=== PATIENT | male | born 1940 | race Caucasian/White ===

== ENCOUNTER 2016-03-03 04:22 | Inpatient (IN) | payer MEDICARE, OTHER ==
[~2016-03-03] VITALS: Ht 177.8 cm; Wt 71.1 kg
[~2016-03-03 04:22] MED LIST: ACID1TAB14 PO; ADV25050 INHALATION; ALBU2.5V3 NEB; ASPI-664 PO; ATOR10TA65 PO; BENA5TAB2 PO; FINA5TAB72 PO; GABA300C PO; HYDR-906 PO; IPRA12.93 INHALATION; LORA0.5T PO; MECL-77 PO; METO25TA7 PO; MULTI PO; NPH,100V SQ; PANT40TA3 PO; QUET25TA26 PO; TEMA15CA6 PO
[2016-03-03] MEDS ORDERED: METHYLPREDNISOLONE 40 MG INJ IV STA (04:43)
[2016-03-03] MEDS ORDERED: SOD CHLORIDE 0.9% 1,000 ML IV STA (04:43)
[2016-03-03] MEDS ORDERED: IPRATROPIUM (NEB) 0.5 MG/2.5 ML AMP INH STA (04:43)
[2016-03-03] MEDS ORDERED: ALBUTEROL 0.5% (NEB) 2.5 MG/0.5 ML AMP INH STA (04:43)
[2016-03-03] MEDS ORDERED: morphine 4 MG/ML VIAL IV STA (05:06)
[2016-03-03] MEDS ORDERED: ONDANSETRON 4 MG INJ IV STA (05:06)
--- NOTE | 2016-03-03 05:16 | RADRPT ---
PROCEDURE: CHEST - 1 VIEW CLINICAL INDICATION: 75-year-old male with chest/abdominal pain. TECHNIQUE: A single frontal AP view of the chest was performed portably. The images were reviewed on a PACS workstation. COMPARISON: Chest x-ray February 08, 2016; CT chest February 09, 2016. FINDINGS: There is a left-sided biventricular pacemaker. The cardiomediastinal silhouette is prominent but wi thout significant interval change. The thoracic aortic arch is mildly calcified. Chronic emphysema tous changes are again noted. There is bilateral lower lung zone linear subsegmental atelectasis. There is no evidence for focal consolidation. There is no evidence for congestive heart failure. Th ere is no evidence for pneumothorax. The osseous structures are intact. IMPRESSION: 1. Left-sided biventricular pacemaker. 2. Calcified thoracic aortic arch. 3. Chronic emphysematous changes. 4. Linear bilateral lower lung zone subsegmental atelectasis. .Tobi Story MD, Date Time Electronically viewed and signed by .Tobi Story MD, on 03/03/2016 05:16 .M/
[2016-03-03 05:55] LABS: HEMATOCRIT 35.5 % (42.0-52.0); HEMOGLOBIN 11.8 g/dl (14.0-18.0); MEAN CORPUSCULAR HEMOGLOBIN 29.7 pg (29.0-33.0); MEAN CORPUSCULAR HGB CONC 33.1 g/dl (32.0-37.0); MEAN CORPUSCULAR VOLUME 89.7 fl (82.0-101.0); MEAN PLATELET VOLUME 8.1 fl (7.4-10.4); PLATELET COUNT 625 10^3/UL (140-440); RED BLOOD COUNT 3.96 10^6/ul (4.70-6.10); RED CELL DISTRIBUTION WIDTH 17.5 % (11.5-14.5); UNCORRECTED WBC 20.4 10^3/ul (4.8-10.8); WHITE BLOOD COUNT 20.4 10^3/ul (4.8-10.8)
[2016-03-03 06:06] LABS: INR 1.06; PROTIME 13.8 Sec (12.2-14.2); PT RATIO 1.1
[2016-03-03 06:08] LABS: CHLORIDE 91 mmol/L (97-110)
[2016-03-03 06:09] LABS: ALBUMIN 3.1 g/dl (3.3-4.9); SODIUM 142 mmol/L (135-144)
[2016-03-03 06:12] LABS: ALANINE AMINOTRANSFERASE 26 IU/L (13-69); ALBUMIN/GLOBULIN RATIO 0.91; ALKALINE PHOSPHATASE 90 IU/L (42-121); ASPARTATE AMINO TRANSFERASE 23 IU/L (15-46); BILIRUBIN,INDIRECT 0.2 mg/dl (0-1.1); BILIRUBIN,TOTAL 0.2 mg/dl (0.2-1.3); BLOOD UREA NITROGEN 16 mg/dl (7-20); CALCIUM 8.6 mg/dl (8.4-10.2); CREATININE 0.49 mg/dl (0.61-1.24); GLUCOSE 161 mg/dl (70-220); TOTAL PROTEIN 6.5 g/dl (6.1-8.1)
--- NOTE | 2016-03-03 06:14 | ERA ---
ER Documentation Chief Complaint Date/Time DATE: 03/03/16 TIME: 06:02 Chief Complaint ALOC (STEPHEN MALDONADO MD) HPI 75-year-old man brought in by EMS from alf for shortness of breath and cough. He has been feeling weak today as well he denies confusion, denies chest pain, no calf or leg swelling, no headache or blurry vision. Patient denies fever although was recently admitted for pneumonia. Patient was transported here by EMS without further complication. HPI supplemented by reviewing past medical history, alf records, speaking to EMS, nursing staff. (STEPHEN MALDONADO MD) ROS All systems reviewed and are negative except as per history of present illness. (STEPHEN MALDONADO MD) Medications Home Meds Reported Medications Acetaminophen* (Acetaminophen*) 650 Mg Tablet, 650 MG PO Q4H WHILE AWAKE Y for PAIN AND OR ELEVATED TEMP, #30 TAB 03/03/16 Protein Supplement (Promod) 946 Ml Liquid, 30 ML PO TID 03/03/16 Lansoprazole* (Lansoprazole*) 30 Mg Capsule.dr, 30 MG PO DAILY, CAP 03/03/16 Prednisone* (Prednisone*) 20 Mg Tab, 40 MG PO DAILY, TAB STARTED 03-03-16 STOPED ON 03-08-16 03/03/16 Potassium Chloride* (Potassium Chloride*) 20 Meq Tablet.er, 20 MEQ PO DAILY, TAB.SA 03/03/16 Oxycodone HCl/Acetaminophen (Percocet 5-325 mg Tablet) 1 Each Tablet, 1 EACH PO Q4H WHILE AWAKE Y for MODERATE PAIN LEVEL 4-6, TAB 03/03/16 Nitroglycerin* (Nitrostat*) 0.4 Mg Tab.subl, 0.4 MG SL Q5MIN Y for CHEST PAIN, BOTTLE 03/03/16 Nifedipine* (Nifedipine ER*) 30 Mg Tablet.sa, 30 MG PO BID, TAB.SA 03/03/16 Polyethylene Glycol* (Miralax*) 17 Gm Powd.pack, 17 GM PO DAILY, #30 PACKET 03/03/16 Mag Hydrox/Al Hydrox/Simeth (Maalox Advanced Suspension) 355 Ml Oral.susp, 30 ML PO Q6 Y for DISTENSION/GAS/BLOATING 03/03/16 Metoprolol Tartrate* (Lopressor*) 25 Mg Tab, 75 MG PO BID, #180 TAB 03/03/16 Levofloxacin* (Levaquin*) 500 Mg Tablet, 500 MG PO DAILY, TAB STARTED 03/02/16 STOP 03/13/16 03/03/16 Lactulose* (Lactulose*) 20 Gm/30 Ml Solution, 20 GM PO DAILY, ML 03/03/16 Isosorbide Dinitrate* (Isosorbide Dinitrate*) 20 Mg Tablet, 20 MG PO TID, TAB 03/03/16 Insulin Glargine* (Lantus*) 100 Unit/Ml Soln, 7 UNIT SC QHS, #1 VIAL 03/03/16 Insulin Aspart* (Novolog Insulin Pen*) 100 Unit/Ml Soln, 3 UNIT SC AC MEALS, EA 03/03/16 Gabapentin* (Gabapentin*) 100 Mg Capsule, 100 MG PO TID, #90 CAP 03/03/16 Docusate Sodium* (Colace*) 100 Mg Capsule, 100 MG PO BID, #60 CAP 03/03/16 Aspirin (Low Dose Aspirin) 81 Mg Tablet.dr, 81 MG PO DAILY, #30 TAB 03/03/16 Ascorbic Acid* (Ascorbic Acid*) 500 Mg/5 Ml Syrup, 500 MG PO DAILY, #150 ML 03/03/16 Zolpidem Tartrate* (Ambien*) 5 Mg Tablet, 5 MG PO QHS Y for INSOMNIA, #30 TAB 03/03/16 Lorazepam* (Lorazepam*) 0.5 Mg Tablet, 0.5 MG PO Q6, TAB 01/25/16 Quetiapine Fumarate* (Seroquel*) 25 Mg Tablet, 25 MG PO Q8, #90 TAB 01/25/16 Benazepril Hcl* (Benazepril Hcl*) 5 Mg Tablet, 5 MG PO Q12, #60 TAB 01/25/16 Finasteride* (Proscar*) 5 Mg Tablet, 5 MG PO DAILY, TAB 01/25/16 Lactobacillus Acidoph/Bulgaricus* (Floranex*) 1 Each Tablet, 1 TAB.CHEW PO BID, TAB.CHEW 01/25/16 Ipratropium [place]* (Atrovent HFA*) 12.9 Gm Aer.w.adap, 2 PUFF INHALATION Q6, # 1 INHALER 01/25/16 Atorvastatin Calcium (Atorvastatin Calcium) 10 Mg Tablet, 10 MG PO QHS, #30 TAB 01/25/16 Salmeterol Xinaf/Fluticasone* (Advair*) 250-50 Diskus Inhaler, 1 INH INHALATION BID, #1 INHALER 01/25/16 Multivitamins* (Theragran*) 1 Tab Tab, 1 TAB PO DAILY, TAB 01/25/16 Hydrocodone/Acetaminophen ([place] 5-325 Tablet) 1 Each Tablet, 1 EACH PO Q6H Y for PRN, TAB 01/25/16 Discontinued Reported Medications Temazepam* (Restoril*) 15 Mg Capsule, 15 MG PO HS Y for INSOMNIA, CAP 01/25/16 Aspirin* (Aspirin* EC) 81 Mg Tablet.dr, 81 MG PO DAILY, TAB 01/25/16 Pantoprazole* (Protonix*) 40 Mg Tablet.dr, 40 MG PO DAILY, TAB 01/25/16 Metoprolol Succinate* (Toprol XL*) 25 Mg Tab.sr.24h, 12.5 MG PO Q12, #30 TAB 01/25/16 Meclizine Hcl* (Meclizine Hcl*) 25 Mg Tablet, 25 MG PO Q8H Y for DIZZINESS, TAB 01/25/16 Gabapentin* (Neurontin*) 300 Mg Capsule, 300 MG PO Q8, #90 CAP 01/25/16 Albuterol Sulfate* (Albuterol Sulfate* Neb) 0.083%-3 Ml Neb, 2.5 MG NEB Q6, #30 VIAL 01/25/16 Insulin NPH Human Isophane (Humulin N) 100 Unit/1 Ml Vial, SQ SLIDING SCALE, VIAL 01/25/16 Allergies Allergies: Coded Allergies: No Known Drug Allergy (Verified Allergy, Unknown, 03/03/16) PMhx/Soc Left ventricular ejection fraction of 45%, recent pneumonia treated as an inpatient with IV antibiotics, chronic obstructive pulmonary disease, sick sinus syndrome with a pacemaker, hypertension, diabetes mellitus, dementia, DNR status History of Surgery: Yes (R knee surgery 5 years ago) Anesthesia Reaction: No Hx Neurological Disorder: No Hx Respiratory Disorders: Yes (copd) Hx Cardiac Disorders: Yes (PM) Hx Psychiatric Problems: No Hx Miscellaneous Medical Probl: Yes Hx Alcohol Use: No Hx Substance Use: No Hx Tobacco Use: No Smoking Status: Former smoker (STEPHEN MALDONADO MD) FmHx Family History: No diabetes (STEPHEN MALDONADO MD) Physical Exam Vitals Vital Signs Date Time Temp Pulse Resp B/P Pulse Ox O2 Delivery O2 Flow Rate FiO2 03/03/16 11:50 92 21 117/65 93 8.0 03/03/16 09:26 93 20 100/68 95 8.0 03/03/16 08:08 98.2 93 20 103/55 80 Nasal Cannula 3.0 03/03/16 06:13 98 20 91 4.0 03/03/16 05:30 96 22 119/64 90 Nasal Cannula 4.0 03/03/16 05:05 98.6 93 24 131/89 92 03/03/16 05:00 Nasal Cannula 4.0 03/03/16 05:00 4 (WILLIAMS MARTELL) Physical Exam GENERAL: Elderly, dehydrated man, dyspneic HEENT: Dry mucous membranes, pink conjunctiva, no cervical spine tenderness or step-off deformities, no goiter, no jaundice or icterus, extraocular movements intact without pain. No submandibular induration, and no pharyngeal erythema NEURO: Alert and oriented 2, cranial nerves II through XII intact bilaterally, pupils equal round reactive to light, no focal deficits or facial asymmetry, sensation intact distally Strength 5/5 in upper and lower extremities bilaterally CARDIAC: Tachycardic and regular, no murmurs rubs or gallops LUNGS: Dense wheezes bilaterally, no crackles or stridor ABDOMEN: Soft nontender, no guarding, no rigidity, no rebound, no psoas sign no obturator sign. Normoactive bowel sounds SKIN: Warm and dry to touch, no abrasions, contusions, or hematomas, no lacerations, no ecchymosis, no target lesions, and without ulcers EXTREMITIES: No clubbing cyanosis or edema, calves are bilaterally symmetrical, no Homans sign, no popliteal cord sign. Distal pulses equal and bilateral PSYCH: Normal affect without agitation or irritability (STEPHEN MALDONADO MD) Result Diagram: 03/03/16 0500 03/03/16 0500 Results 24 hrs Laboratory Tests Test 03/03/16 05:00 03/03/16 07:35 03/03/16 11:40 Alanine Aminotransferase (ALT/SGPT) 26IU/L Albumin 3.1g/dl Albumin/Globulin Ratio 0.91 Alkaline Phosphatase 90IU/L Anion Gap 14 Aspartate Amino Transf (AST/SGOT) 23IU/L Band Neutrophils % 7.0% Basophils # 10^3/ul Basophils % % Blood Morphology Comment Blood Urea Nitrogen 16mg/dl Calcium Level 8.6mg/dl Carbon Dioxide Level 40mmol/L Chloride Level 91mmol/L Creatinine 0.49mg/dl Differential Comment MANUAL DIFF Direct Bilirubin 0.00mg/dl Eosinophils # 10^3/ul Eosinophils % % Globulin 3.40g/dl Glucose Level 161mg/dl Hematocrit 35.5% Hemoglobin 11.8g/dl INR International Normalized Ratio 1.06 Indirect Bilirubin 0.2mg/dl Lactic Acid Level 1.6mmol/L Lipase < 10U/L Lymphocytes # 0.810^3/ul Lymphocytes % 4.0% Mean Corpuscular Hemoglobin 29.7pg Mean Corpuscular Hemoglobin Concent 33.1g/dl Mean Corpuscular Volume 89.7fl Mean Platelet Volume 8.1fl Monocytes # 0.810^3/ul Monocytes % 4.0% Neutrophils # 17.310^3/ul Neutrophils % 85.0% Nucleated Red Blood Cells # 10^3/ul Nucleated Red Blood Cells % /100WBC Platelet Count 86570^3/UL Platelet Estimate PLT APPEAR INCREASED Potassium Level 2.9mmol/L Prothrombin Time 13.8Sec Prothrombin Time Ratio 1.1 Red Blood Count 3.9610^6/ul Red Cell Distribution Width 17.5% Sodium Level 142mmol/L Total Bilirubin 0.2mg/dl Total Protein 6.5g/dl Troponin I 0.086ng/ml White Blood Count 20.410^3/ul Urine Bacteria OCCASIONAL Urine Bilirubin NEGATIVE Urine Clarity CLEAR Urine Coarse Granular Casts RARE Urine Color YELLOW Urine Glucose NEGATIVE% Urine Hemoglobin NEGATIVE Urine Hyaline Casts OCCASIONAL Urine Ketones NEGATIVE Urine Leukocyte Esterase NEGATIVE Urine Microscopic RBC NONE SEEN/HPF Urine Microscopic WBC 2-5/HPF Urine Nitrite NEGATIVE Urine Specific Temple >=1.030 Urine Total Protein 1+ Urine Urobilinogen 0.2 E.U./dL Urine pH 6.0 Arterial Blood HCO3 39.2mmol/L Arterial Blood Base Excess 11.4mmol/L Arterial Blood Oxygen Saturation 93.0mmHG Pako Test ACCEPTAB Arterial Blood Gas Puncture Site Right Radial Arterial Blood Carboxyhemoglobin 0.2% Arterial Blood Date Drawn 03/03/2016 11:55:18 AM Arterial Blood Methemoglobin 0.3% Arterial Blood pCO2 (Temp correct) 70.6mmhg Arterial Blood pH (Temp corrected) 7.362 Arterial Blood pO2 (Temp corrected) 71.2mmHG Blood Gas A-a O2 Differential 169.3mmHg Blood Gas Modality NASAL CANNULA Blood Gas Notified Time 03/03/2016 12:03:31 PM Blood Gas Notified Whom [facility] [employer] Blood Gas Specimen Source Blood arterial Blood Gas Temperature 37.0C FiO2 45.0% Oxyhemoglobin Percent 92.5% Total Hemoglobin 11.2g/dl Current Medications Medications (Trade) Dose Ordered Sig/Richard Route PRN Reason Start Time Stop Time Status Last Admin Dose Admin Albuterol (Proventil 0.5% (Neb)) 10 mg ONCE STAT INH 03/03/16 04:43 03/03/16 04:46 DC 03/03/16 06:13 Ipratropium [place] (Atrovent 0.02% (Neb)) 1 mg ONCE STAT INH 03/03/16 04:43 03/03/16 04:46 DC 03/03/16 06:13 Methylprednisolone Sodium Succinate 40 mg 40 mg ONCE STAT IV 03/03/16 04:43 03/03/16 04:46 DC 03/03/16 05:20 Sodium Chloride (NS) 1,000 ml @ 1,000 mls/hr Q1H STAT IV 03/03/16 04:43 03/03/16 05:42 DC 03/03/16 05:20 Morphine Sulfate (morphine) 4 mg ONCE STAT IV 03/03/16 05:06 03/03/16 05:07 DC 03/03/16 05:20 Ondansetron HCl 4 mg 4 mg ONCE STAT IV 03/03/16 05:06 03/03/16 05:07 DC 03/03/16 05:20 Levofloxacin/ Dextrose 150 ml @ 100 mls/hr ONCE ONCE IVPB 03/03/16 07:00 03/03/16 08:29 DC 03/03/16 08:04 Potassium Chloride (KCl 20 MEQ/50 ML SW) 50 ml @ 25 mls/hr ONCE ONCE IVPB 03/03/16 07:00 03/03/16 08:59 DC 03/03/16 07:39 Lorazepam (Ativan) 1 mg ONCE ONCE PO 03/03/16 11:30 03/03/16 11:31 DC 03/03/16 11:54 Morphine Sulfate (morphine) 2 mg ONCE ONCE IV 03/03/16 11:30 03/03/16 11:31 DC 03/03/16 11:54 Lorazepam (Ativan) 0.5 mg Q6 PRN IV AGITATION/ANXIETY 03/03/16 12:00 Hydromorphone HCl (Dilaudid) 0.5 mg Q4 PRN IV PAIN LEVEL 8-10 03/03/16 12:00 (WILLIAMS MARTELL) Procedures/MDM IV line was established patient was placed on child monitor rhythm strip revealed a wide-complex paced rhythm at about 100 bpm. Patient was afebrile. I administered 1 L normal saline intravenously, morphine 4 mg IV, Zofran 4 mg IV , albuterol 10 mg via nebulizer, ipratropium 1 mg via nebulizer, and ethyl prednisolone 40 mg IV with good response. One view chest x-ray performed, read by me there is a pacemaker in place and atelectatic changes bilaterally, no acute infiltrates, no pneumothorax. EKG performed, read by me revealed a paced wide complex rhythm at 94 bpm, left axis deviation, no concerning ST elevations or depressions noted. I spoke to Dr. Barroso regarding the patient's presentation and symptomatology and he agreed with the plan, we will admit the patient to telemetry setting for continued medical management and bronchodilator therapy (STEPHEN MALDONADO MD) I assumed care at 6 AM. Review of patient's labs demonstrated a leukocytosis. Given this ill gentleman with respiratory complaints and underlying disease, I initiated antibiotics after ordering blood cultures. Patient's lactate was reviewed and he did not appear to be severely septic. Patient's potassium was also reported as being low and this was replaced via IV replacement. Patient otherwise remained comfortable and stable pending bed placement. Patient is continued to be under my observation and care. At 1140 I was made aware of the patient's CO2 being over 40. I ordered a blood gas which is pending at this time. Blood gas was reviewed at approximately noon. It demonstrated a hypercarbia with a balanced pH indicating compensated hypercarbic respiratory failure. Clinically, patient was not encephalopathic and was breathing normally. His saturations remained adequate. Continue to work with respiratory therapy to titrate nasal cannula oxygen to appropriate saturations. He did not seem to require BiPAP or intubation at this time. (WILLIAMS MARTELL) Departure Diagnosis: Primary Impression: COPD (chronic obstructive pulmonary disease) Qualified Code: J44.1 - Chronic obstructive pulmonary disease with acute exacerbation Additional Impressions: Dehydration Hypokalemia Condition: Fair STEPHEN MALDONADO MD Mar 03, 2016 06:13 WILLIAMS MARTELL Mar 03, 2016 06:53
[2016-03-03 06:23] LABS: CONDITION 1; LH ANALYZER COMMENTS 1; SUSPECT 1
[2016-03-03 06:24] LABS: TROPONIN-I 0.086 ng/ml (0.00-0.12)
[2016-03-03 06:38] LABS: ANION GAP 14 (8-16)
[2016-03-03] MEDS ORDERED: LEVOFLOXACIN 750MG/D5W (PMX) 150 ML IVPB ONE (07:00)
[2016-03-03] MEDS ORDERED: POTASSIUM CHLORIDE 50 ML IVPB ONE (07:00)
[2016-03-03] MEDS ORDERED: ZOLP5TAB PO (07:13)
[2016-03-03] MEDS ORDERED: ASCO500S2 PO (07:14)
[2016-03-03] MEDS ORDERED: ASPI-664 PO (07:15)
[2016-03-03] MEDS ORDERED: DOCU-144 PO (07:16)
[2016-03-03] MEDS ORDERED: GABA100C14 PO (07:17)
[2016-03-03] MEDS ORDERED: NOVO3I SC (07:18)
[2016-03-03] MEDS ORDERED: ISOS20TA19 PO (07:19)
[2016-03-03] MEDS ORDERED: LANT3I SC (07:19)
[2016-03-03] MEDS ORDERED: LACT20SO2 PO (07:20)
[2016-03-03] MEDS ORDERED: LEVO500T72 PO (07:21)
[2016-03-03] MEDS ORDERED: METO-448 PO (07:23)
[2016-03-03] MEDS ORDERED: POLY17PO6 PO (07:25)
[2016-03-03] MEDS ORDERED: MAG355OR14 PO (07:25)
[2016-03-03] MEDS ORDERED: NIFE30TA60 PO (07:26)
[2016-03-03] MEDS ORDERED: NIT4 SL (07:26)
[2016-03-03] MEDS ORDERED: OXYC-279 PO (07:27)
[2016-03-03] MEDS ORDERED: POTA20TA96 PO (07:28)
[2016-03-03] MEDS ORDERED: LANS30CA PO (07:30)
[2016-03-03] MEDS ORDERED: PRED20TA PO (07:30)
[2016-03-03] MEDS ORDERED: PROT946L PO (07:31)
[2016-03-03] MEDS ORDERED: ACET-2047 PO (07:32)
[2016-03-03 08:08] VITALS: TEMP 98.2
[2016-03-03 08:36] LABS: ADD UMIC YES; URINE BILIRUBIN (Dip) NEGATIVE (NEGATIVE); URINE BLOOD (Dip) NEGATIVE (NEGATIVE); URINE COLOR YELLOW (YELLOW); URINE GLUCOSE (Dip) NEGATIVE (NEGATIVE); URINE KETONES (Dip) NEGATIVE (NEGATIVE); URINE LEUKOCYTE ESTERASE (Dip) NEGATIVE (NEGATIVE); URINE NITRITE (Dip) NEGATIVE (NEGATIVE); URINE TOTAL PROTEIN (Dip) 1+ (NEGATIVE); URINE UROBILINOGEN (Dip) 0.2 E.U./dL (0.1-1.0)
[2016-03-03 09:03] LABS: URINE RBCS NONE SEEN /HPF (0)
[2016-03-03 09:04] LABS: BACTERIA,URINE OCCASIONAL
[2016-03-03 09:23] LABS: LYMPHOCYTES # 0.8 10^3/ul (0.8-2.9); MONOCYTE # 0.8 10^3/ul (0.3-0.9); NEUTROPHIL # 17.3 10^3/ul (1.6-7.5); PLATELET ESTIMATE PLT APPEAR INCREASED
[2016-03-03] MEDS ORDERED: morphine 2 MG INJ IV ONE (11:30)
[2016-03-03] MEDS ORDERED: LORAZEPAM 1 MG TAB PO ONE (11:30)
[2016-03-03 11:40] LABS: CARBON DIOXIDE 40 mmol/L (21-31); POTASSIUM 2.9 mmol/L (3.5-5.1)
[2016-03-03] MEDS ORDERED: LORAZEPAM 2 MG INJ IV PRN (12:00)
[2016-03-03] MEDS ORDERED: HYDROmorphONE 1 MG/ML SYG IV PRN (12:00)
[2016-03-03 12:03] LABS: AADO2 Arterial 169.3 mmHg (7.0-24.0); Allen Test ACCEPTAB; Arterial Base Excess 11.4 mmol/L (-3.0-3); Arterial COHb 0.2 % (0.0-3.0); Arterial Fraction of Oxyhgb 92.5 % (93.0-99.0); Arterial HCO3 39.2 mmol/L (22.0-26.0); Arterial MetHb 0.3 % (0.0-1.5); Arterial Total Hemglobin 11.2 g/dl (12.0-18.0); MODE NASAL CANNULA
[2016-03-03] MEDS ORDERED: GABAPENTIN 100 MG CAP PO ONE (14:00)
[2016-03-03] MEDS ORDERED: NITROGLYCERIN (SL) 0.4 MG TAB SL PRN (20:00)
[2016-03-03] MEDS ORDERED: AL HYDROX/MG HYDROX/SIMETH 30 ML CUP PO PRN (20:00)
[2016-03-03] MEDS ORDERED: ONDANSETRON 4 MG INJ IV PRN (20:00)
--- NOTE | 2016-03-03 20:01 | HP ---
Date/Time of Note Date/Time of Note DATE: 03/03/16 TIME: 19:56 Assessment/Plan VTE Prophylaxis VTE Prophylaxis Intervention: other Assessment/Plan Assessment/Plan 1. Acute hypercapnic respiratory failure - pulmonary consult- Dr Drew - breathing treatment - on o2 by NC 2. Chronic obstructive pulmonary disease with acute exacerbation - Continue bronchodilators. 3. Dehydration 4. Hypertension. - Continue patient on Benazepril and metoprolol. 5. Diabetes mellitus type 2. - Continue on NovoLog and Lantus. 6. Sick sinus syndrome status post pacemaker - per cardiology 7. Dementia/encephalopathy PLAN: Admit to Tele See admission orders DVT prophylaxis dw dr Chen/staff HPI/ROS Admit Date/Time Admit Date/Time Mar 03, 2016 at 17:24 Hx of Present Illness ALOC (STEPHEN MALDONADO MD) HPI 75-year-old man brought in by EMS from snf for shortness of breath and cough. He has been feeling weak today as well he denies confusion, denies chest pain, no calf or leg swelling, no headache or blurry vision. Patient denies fever although was recently admitted for pneumonia. Patient was transported here by EMS without further complication. HPI supplemented by reviewing past medical history, snf records, speaking to EMS, nursing staff. (STEPHEN MALDONADO MD) ROS All systems reviewed and are negative except as per history of present illness. (STEPHEN MALDONADO MD) Medications Home Meds Reported Medications Acetaminophen* (Acetaminophen*) 650 Mg Tablet, 650 MG PO Q4H WHILE AWAKE Y for PAIN AND OR ELEVATED TEMP, #30 TAB 03/03/16 Protein Supplement (Promod) 946 Ml Liquid, 30 ML PO TID 03/03/16 Lansoprazole* (Lansoprazole*) 30 Mg Capsule.dr, 30 MG PO DAILY, CAP 03/03/16 Prednisone* (Prednisone*) 20 Mg Tab, 40 MG PO DAILY, TAB STARTED 03-03-16 STOPED ON 03-08-16 03/03/16 Potassium Chloride* (Potassium Chloride*) 20 Meq Tablet.er, 20 MEQ PO DAILY, TAB.SA 03/03/16 Oxycodone HCl/Acetaminophen (Percocet 5-325 mg Tablet) 1 Each Tablet, 1 EACH PO Q4H WHILE AWAKE Y for MODERATE PAIN LEVEL 4-6, TAB 03/03/16 Nitroglycerin* (Nitrostat*) 0.4 Mg Tab.subl, 0.4 MG SL Q5MIN Y for CHEST PAIN, BOTTLE 03/03/16 Nifedipine* (Nifedipine ER*) 30 Mg Tablet.sa, 30 MG PO BID, TAB.SA 03/03/16 Polyethylene Glycol* (Miralax*) 17 Gm Powd.pack, 17 GM PO DAILY, #30 PACKET 03/03/16 Mag Hydrox/Al Hydrox/Simeth (Maalox Advanced Suspension) 355 Ml Oral.susp, 30 ML PO Q6 Y for DISTENSION/GAS/BLOATING 03/03/16 Metoprolol Tartrate* (Lopressor*) 25 Mg Tab, 75 MG PO BID, #180 TAB 03/03/16 Levofloxacin* (Levaquin*) 500 Mg Tablet, 500 MG PO DAILY, TAB STARTED 03/02/16 STOP 03/13/16 03/03/16 Lactulose* (Lactulose*) 20 Gm/30 Ml Solution, 20 GM PO DAILY, ML 03/03/16 Isosorbide Dinitrate* (Isosorbide Dinitrate*) 20 Mg Tablet, 20 MG PO TID, TAB 03/03/16 Insulin Glargine* (Lantus*) 100 Unit/Ml Soln, 7 UNIT SC QHS, #1 VIAL 03/03/16 Insulin Aspart* (Novolog Insulin Pen*) 100 Unit/Ml Soln, 3 UNIT SC AC MEALS, EA 03/03/16 Gabapentin* (Gabapentin*) 100 Mg Capsule, 100 MG PO TID, #90 CAP 03/03/16 Docusate Sodium* (Colace*) 100 Mg Capsule, 100 MG PO BID, #60 CAP 03/03/16 Aspirin (Low Dose Aspirin) 81 Mg Tablet.dr, 81 MG PO DAILY, #30 TAB 03/03/16 Ascorbic Acid* (Ascorbic Acid*) 500 Mg/5 Ml Syrup, 500 MG PO DAILY, #150 ML 03/03/16 Zolpidem Tartrate* (Ambien*) 5 Mg Tablet, 5 MG PO QHS Y for INSOMNIA, #30 TAB 03/03/16 Lorazepam* (Lorazepam*) 0.5 Mg Tablet, 0.5 MG PO Q6, TAB 01/25/16 Quetiapine Fumarate* (Seroquel*) 25 Mg Tablet, 25 MG PO Q8, #90 TAB 01/25/16 Benazepril Hcl* (Benazepril Hcl*) 5 Mg Tablet, 5 MG PO Q12, #60 TAB 01/25/16 Finasteride* (Proscar*) 5 Mg Tablet, 5 MG PO DAILY, TAB 01/25/16 Lactobacillus Acidoph/Bulgaricus* (Floranex*) 1 Each Tablet, 1 TAB.CHEW PO BID, TAB.CHEW 01/25/16 Ipratropium [place]* (Atrovent HFA*) 12.9 Gm Aer.w.adap, 2 PUFF INHALATION Q6, # 1 INHALER 01/25/16 Atorvastatin Calcium (Atorvastatin Calcium) 10 Mg Tablet, 10 MG PO QHS, #30 TAB 01/25/16 Salmeterol Xinaf/Fluticasone* (Advair*) 250-50 Diskus Inhaler, 1 INH INHALATION BID, #1 INHALER 01/25/16 Multivitamins* (Theragran*) 1 Tab Tab, 1 TAB PO DAILY, TAB 01/25/16 Hydrocodone/Acetaminophen ([place] 5-325 Tablet) 1 Each Tablet, 1 EACH PO Q6H Y for PRN, TAB 01/25/16 Discontinued Reported Medications Temazepam* (Restoril*) 15 Mg Capsule, 15 MG PO HS Y for INSOMNIA, CAP 01/25/16 Aspirin* (Aspirin* EC) 81 Mg Tablet.dr, 81 MG PO DAILY, TAB 01/25/16 Pantoprazole* (Protonix*) 40 Mg Tablet.dr, 40 MG PO DAILY, TAB 01/25/16 Metoprolol Succinate* (Toprol XL*) 25 Mg Tab.sr.24h, 12.5 MG PO Q12, #30 TAB 01/25/16 Meclizine Hcl* (Meclizine Hcl*) 25 Mg Tablet, 25 MG PO Q8H Y for DIZZINESS, TAB 01/25/16 Gabapentin* (Neurontin*) 300 Mg Capsule, 300 MG PO Q8, #90 CAP 01/25/16 Albuterol Sulfate* (Albuterol Sulfate* Neb) 0.083%-3 Ml Neb, 2.5 MG NEB Q6, #30 VIAL 01/25/16 Insulin NPH Human Isophane (Humulin N) 100 Unit/1 Ml Vial, SQ SLIDING SCALE, VIAL 01/25/16 Allergies Allergies: Coded Allergies: No Known Drug Allergy (Verified Allergy, Unknown, 03/03/16) ROS Eyes: no complaints ENT: no complaints Respiratory: shortness of breath Cardiovascular: no complaints Gastrointestinal: no complaints Genitourinary: no complaints Musculoskeletal: no complaints Skin: no complaints PMH/Family/Social Past Medical History PMhx/Soc Left ventricular ejection fraction of 45%, recent pneumonia treated as an inpatient with IV antibiotics, chronic obstructive pulmonary disease, sick sinus syndrome with a pacemaker, hypertension, diabetes mellitus, dementia, DNR status History of Surgery: Yes (R knee surgery 5 years ago) Anesthesia Reaction: No Hx Neurological Disorder: No Hx Respiratory Disorders: Yes (copd) Hx Cardiac Disorders: Yes (PM) Hx Psychiatric Problems: No Hx Miscellaneous Medical Probl: Yes Hx Alcohol Use: No Hx Substance Use: No Hx Tobacco Use: No Smoking Status: Former smoker FmHx Family History: No diabetes Social History Smoking Status: Former smoker Exam/Review of Systems Vital Signs Vitals Vital Signs Date Time Temp Pulse Resp B/P Pulse Ox O2 Delivery O2 Flow Rate FiO2 03/03/16 17:16 96 22 132/79 94 Nasal Cannula 6.0 03/03/16 08:08 98.2 Exam Constitutional: alert Psych: nl mood/affect Eyes: EOMI, nl sclera ENMT: nl external ears & nose Neck: non-tender Respiratory: diminished breath sounds Cardiovascular: nl pulses Gastrointestinal: non-tender, soft Musculoskeletal: nl extremities to inspection Neurological: confused, nl speech Labs Result Diagram: 03/03/16 0500 03/03/16 0500 Medications Medications Current Medications Lorazepam (Ativan) 0.5 mg Q6 PRN IV AGITATION/ANXIETY; Start 03/03/16 at 12:00 Hydromorphone HCl (Dilaudid) 0.5 mg Q4 PRN IV PAIN LEVEL 8-10 Last administered on 03/03/16at 15:53; Admin Dose 0.5 MG; Start 03/03/16 at 12:00 SOCO SIMS Mar 03, 2016 20:01
[2016-03-03 20:09] VITALS: BP 130/58; RESP 20
[2016-03-03 20:25] VITALS: PULSE 88
[2016-03-03] MEDS ORDERED: GLUCAGON 1 MG INJ IM PRN (21:00)
[2016-03-03] MEDS ORDERED: GLUCOSE GEL 15 GRAM TUBE PO PRN ×2 (21:00)
[2016-03-03] MEDS ORDERED: DEXTROSE 50% 50 ML SYRINGE IV PRN ×2 (21:00)
[2016-03-03] MEDS ORDERED: GLUCOSE GEL 15 GRAM TUBE BUCCAL PRN (21:00)
[2016-03-03 21:33] LABS: POTASSIUM 4.1 mmol/L (3.5-5.1)
[2016-03-03 21:35] LABS: CREATININE 0.7 mg/dl (0.61-1.24)
[2016-03-03 21:36] LABS: CALCIUM 8.4 mg/dl (8.4-10.2)
[2016-03-03 22:00] VITALS: Ht 177.8 cm; Wt 71.1 kg
[2016-03-03] MEDS: INSULIN ASPART [NOVOLOG] 3 ML PEN SC SCH (22:00)
[2016-03-03] MEDS: METHYLPREDNISOLONE 40 MG INJ IV SCH (22:04)
[2016-03-03] MEDS: GABAPENTIN 100 MG CAP PO SCH (22:05)
[2016-03-03] MEDS: QUETIAPINE 25 MG TAB PO SCH (22:05)
[2016-03-03] MEDS: DOCUSATE SODIUM 100 MG CAP PO SCH (22:05)
[2016-03-03] MEDS: ISOSORBIDE DINITRATE 20 MG TAB PO SCH (22:05)
[2016-03-03] MEDS: ATORVASTATIN 10 MG TAB PO SCH (22:05)
[2016-03-03] MEDS: LACTOBACILLUS CHEW TAB PO SCH (22:05)
[2016-03-03] MEDS: NIFEdipine (XL) 30 MG TAB PO SCH (22:05)
[2016-03-03] MEDS: METOPROLOL 25 MG TAB PO SCH (22:06)
[2016-03-03] MEDS: BENAZEPRIL 5 MG TAB PO SCH (22:06)
[2016-03-03] MEDS: SALMETEROL/FLUTICASONE 250/50 INHA INH SCH (22:07)
[2016-03-03] MEDS: INSULIN GLARGINE [LANtus] 3 ML PEN SC SCH (22:09)
--- NOTE | 2016-03-03 23:13 | CONS ---
DATE OF ADMISSION: 03/03/2016 DATE OF CONSULTATION: 03/03/2016 TYPE OF CONSULTATION: Cardiology REASON FOR CONSULTATION: Shortness of breath, assess for congestive heart failure as well as permanent pacemaker, assess function. REQUESTING PHYSICIAN: Harsh Griffith MD HISTORY OF PRESENT ILLNESS: Mr. Márquez is a 75-year-old male with history of chronic obstructive pulmonary disease, hypertension, diabetes mellitus, sick sinus syndrome, status permanent pacemaker implant, dementia, and encephalopathy who had recently been admitted to [facility] and discharged to outpatient followup after being treated for chronic obstructive pulmonary disease exacerbation complicated by epistaxis and elevated troponin and found to have cardiomyopathy with mildly decreased left ventricular ejection fraction. He now re-presents with complaints of shortness of breath and hypercapnic respiratory failure with an ABG revealing a pH of 7.362, a pCO2 of 70, and a pO2 of 71. Upon arrival, blood pressure of 131/89, pulse 93, respiratory rate 24, saturating 93%, temperature 98.6. The patient's labs revealed an ABG as above. Sodium 142, potassium 2.9, creatinine 0.49, BUN 16, glucose of 161. INR of 1.06. UA negative. The patient underwent a chest x -ray revealing left-sided biventricular pacemaker, chronic emphysematous changes , linear bilateral lower lung zone subsegmental atelectasis, calcified thoracic aortic arch, no evidence of focal consolidation. Patient's electrocardiogram is ventricularly paced and a rate of 94. The patient at this time denies ongoing chest pain. PAST MEDICAL HISTORY: As above in HPI. MEDICATIONS CURRENTLY IN HOSPITAL: 1. Vitamin C. 2. Aspirin 81 mg daily. 3. Proscar 5 mg daily. 4. Lactulose 20 grams daily. 5. Multivitamin. 6. MiraLax. 7. Potassium chloride 10 mEq daily. 9. Protonix 40 mg daily. 10. Atrovent 2 puffs q.6h. 11. Ativan 0.5 q.6h. 12. Seroquel 25 mg p.o. q.8h. 13. Insulin sliding scale. 14. Lipitor 10 mg at bedtime. 15. Benazepril 5 mg q.12h. 16. Colace 100 mg b.i.d. 17. Gabapentin 100 mg t.i.d. 18. Isordil 20 mg t.i.d. 19. Floranex. 20. Metoprolol 75 mg p.o. b.i.d. 21. Procardia 30 mg b.i.d. 22. Advair Diskus. 23. Solu-Medrol 40 mg IV q.12h. 24. Lantus 8 units subcutaneous at bedtime p.r.n. 25. [place] p.r.n. 26. Nitroglycerin p.r.n. 27. Ambien p.r.n. 28. Zofran p.r.n. 29. Ativan p.r.n. 30. Dilaudid p.r.n. ALLERGIES: NO KNOWN DRUG ALLERGIES. SOCIAL HISTORY: No current tobacco, ETOH, or illicit drug use. FAMILY HISTORY: No history of sudden cardiac or early CAD. REVIEW OF SYSTEMS: As above in HPI. CONSTITUTIONAL: No fevers, chills. PULMONARY: Shortness of breath. CARDIOVASCULAR: No current chest pain; positive shortness of breath. GASTROINTESTINAL: No vomiting. GENITOURINARY: No hematuria. MUSCULOSKELETAL: Degenerative joint disease. PSYCHIATRIC: No documented psychiatric history. NEUROLOGIC: No documented history of CVA. ENDOCRINE: Documented history of diabetes mellitus. PHYSICAL EXAMINATION: VITAL SIGNS: Temperature of 98.3, blood pressure 130/58, pulse 95, respiratory rate 20, saturating 94%. GENERAL: The patient is alert, awake, in no acute distress. NECK: JVP approximately 8 to 9 cm water. CHEST: Fair air movement throughout. HEART: Regular rate and rhythm. Normal S1, increased S2, I/ systolic murmur , nondisplaced PMI. ABDOMEN: Positive bowel sounds, soft. EXTREMITIES: No edema, 1+ pulses bilaterally at the posterior tibial. LABORATORY DATA: As above in HPI with additionally the patient having a white blood cell count of 20.4, hemoglobin 11.8, platelet count 625. Negative UA. IMAGING STUDIES: As above in HPI. No further imaging studies for my review at this time. ECG: As above in HPI. No further electrocardiograms for my review at this time. IMPRESSION: 1. Shortness of breath, assess for congestive heart failure. 2. Permanent pacemaker-assess function. 3. Hypertension, under reasonable control on multiple oral antihypertensives. 4. Hypercapnic respiratory distress/chronic obstructive pulmonary disease exacerbation. 5. History of cardiomyopathy with mildly depressed left ventricular ejection fraction by most recent echo, February 2016. 6. Hypokalemia. 7. Anemia. 8. Leukocytosis. RECOMMENDATIONS: 1. At this time, would maintain the patient on telemetry monitoring to follow rhythm and rate control closely. 2. Recheck serial EKGs to assess for any significant ongoing changes, although most EKGs may be paced and therefore be unrevealing. 3. Continue the patient's current aspirin at this time for prophylaxis against cardiovascular events. 4. Continue the patient's current statin therapy for treatment of dyslipidemia. 5. Continue the patient's baseline Isordil, benazepril, metoprolol, and Procardia, following blood pressure closely. Additionally, continue the patient 's current steroids, bronchodilators. 6. Check a BNP to further assess the patient's current volume status. Thank you for allowing me to take part in the care of this patient. I will continue to follow very closely with you with further recommendations to be made as the patient progresses through his inpatient hospital clinical course. Dictated By: VAISHNAVI BRENNER/KAT Conf#: [id number] DID#: [id number] CC: HARSH GRIFFITH MD;*EndCC* MTDD
[2016-03-03] MEDS: LORAZEPAM 0.5 MG TAB PO SCH (23:45)
[2016-03-03 23:58] VITALS: BP 134/63; RESP 20
[2016-03-04] VITALS (11 sets, daily range): BP systolic 101–137; BP diastolic 53–78; PULSE 81–96; RESP 17–19
[2016-03-04 01:40] LABS: TROPONIN-I 0.065 ng/ml (0.00-0.12)
[2016-03-04 01:44] LABS: CK-MB 1.24 ng/ml (0.0-2.4); CREATINE KINASE < 20 IU/L (23-200)
[2016-03-04] MEDS: ACCUCHECK XX SCH (02:00)
[2016-03-04] MEDS: LORAZEPAM 0.5 MG TAB PO SCH (05:53)
[2016-03-04] MEDS: QUETIAPINE 25 MG TAB PO SCH ×3 (05:53→20:40)
[2016-03-04] MEDS: PANTOPRAZOLE (EC) 40 MG TAB PO SCH (05:53)
[2016-03-04 07:36] LABS: CREATINE KINASE < 20 IU/L (23-200)
[2016-03-04 07:45] LABS: CK-MB 0.89 ng/ml (0.0-2.4)
[2016-03-04 07:48] LABS: TROPONIN-I 0.058 ng/ml (0.00-0.12)
[2016-03-04] MEDS: INSULIN ASPART [NOVOLOG] 3 ML PEN SC SCH ×4 (08:00→12:19)
[2016-03-04 08:17] LABS: POTASSIUM 4.6 mmol/L (3.5-5.1)
[2016-03-04 08:20] LABS: CREATININE 0.73 mg/dl (0.61-1.24)
[2016-03-04 08:21] LABS: CALCIUM 8.4 mg/dl (8.4-10.2)
[2016-03-04 08:47] LABS: HEMATOCRIT 31.4 % (42.0-52.0); HEMOGLOBIN 10.2 g/dl (14.0-18.0); MEAN CORPUSCULAR HEMOGLOBIN 29.5 pg (29.0-33.0); MEAN CORPUSCULAR HGB CONC 32.6 g/dl (32.0-37.0); MEAN CORPUSCULAR VOLUME 90.5 fl (82.0-101.0); MEAN PLATELET VOLUME 8.5 fl (7.4-10.4); PLATELET COUNT 499 10^3/UL (140-440); RED BLOOD COUNT 3.47 10^6/ul (4.70-6.10); RED CELL DISTRIBUTION WIDTH 17.2 % (11.5-14.5); UNCORRECTED WBC 19.6 10^3/ul (4.8-10.8); WHITE BLOOD COUNT 19.6 10^3/ul (4.8-10.8)
[2016-03-04 08:50] LABS: CONDITION 1; LH ANALYZER COMMENTS 1; SUSPECT 1
[2016-03-04] MEDS ORDERED: LANSOPRAZOLE 30 MG CAP PO SCH (09:00)
[2016-03-04] MEDS: DOCUSATE SODIUM 100 MG CAP PO SCH ×2 (09:00→20:38)
[2016-03-04] MEDS: ISOSORBIDE DINITRATE 20 MG TAB PO SCH ×3 (09:00→20:40)
[2016-03-04] MEDS: ASPIRIN (EC) 81 MG TAB PO SCH (09:00)
[2016-03-04] MEDS: METOPROLOL 25 MG TAB PO SCH (09:00)
[2016-03-04] MEDS: FINASTERIDE 5 MG TAB PO SCH (09:00)
[2016-03-04] MEDS: ASCORBIC ACID 500 MG TAB PO SCH (09:00)
[2016-03-04] MEDS: POTASSIUM CHLORIDE (SR) 20 MEQ TAB PO SCH (09:00)
[2016-03-04] MEDS: NIFEdipine (XL) 30 MG TAB PO SCH ×2 (09:00→20:39)
[2016-03-04] MEDS: GABAPENTIN 100 MG CAP PO SCH ×3 (09:00→20:38)
[2016-03-04] MEDS: MULTIVITAMINS THERAPEUTIC TAB PO SCH (09:00)
[2016-03-04] MEDS: POLYETHYLENE GLYCOL 17 GM PACKET PO SCH (09:00)
[2016-03-04] MEDS: LACTULOSE 30ML CUP PO SCH (09:00)
[2016-03-04] MEDS: LACTOBACILLUS CHEW TAB PO SCH ×2 (09:00→20:38)
[2016-03-04] MEDS: BENAZEPRIL 5 MG TAB PO SCH ×2 (09:00→20:39)
[2016-03-04] MEDS: METHYLPREDNISOLONE 40 MG INJ IV SCH ×2 (09:30→20:37)
[2016-03-04] MEDS: SALMETEROL/FLUTICASONE 250/50 INHA INH SCH ×2 (09:59→20:36)
--- NOTE | 2016-03-04 10:44 | RADRPT ---
Vent Rate: 81 bpm RR Interval: 0 msec VA Interval: 168 msec QRS Duration: 156 msec QT Interval: 454 msec QTC Interval: 527 msec P-R-T Vendor: 73 - -74 - 109 degrees Electronic ventricular pacemaker Electronically Signed By: Taurus Wooten [id number]
[2016-03-04] MEDS: IPRATROPIUM (HFA) 12.9 GM INHALER INH SCH ×3 (12:14→20:40)
[2016-03-04] MEDS: DEXTROSE 5%-0.45% NACL 1,000 ML IV SCH (12:20)
[2016-03-04 13:14] LABS: LYMPHOCYTES # 0.6 10^3/ul (0.8-2.9); NEUTROPHIL # 16.5 10^3/ul (1.6-7.5)
[2016-03-04 13:57] LABS: CK-MB 0.75 ng/ml (0.0-2.4); CREATINE KINASE < 20 IU/L (23-200)
[2016-03-04 13:59] LABS: TROPONIN-I 0.031 ng/ml (0.00-0.12)
[2016-03-04] MEDS ORDERED: LEVOFLOXACIN 750MG/D5W (PMX) 150 ML IVPB ONE (15:00)
--- NOTE | 2016-03-04 15:02 | PN ---
Date/Time of Note Date/Time of Note DATE: 03/04/16 TIME: 15:00 Assessment/Plan VTE Prophylaxis VTE Prophylaxis Intervention: other Lines/Catheters IV Catheter Type (from Nrsg): Saline Lock Assessment/Plan Assessment/Plan 1. Acute hypercapnic respiratory failure - pulmonary consult- Dr Drew - breathing treatment - on o2 by NC 2. Chronic obstructive pulmonary disease with acute exacerbation - Continue bronchodilators. 3. Dehydration 4. Hypertension. - Continue patient on Benazepril and metoprolol. 5. Diabetes mellitus type 2. - Continue on NovoLog and Lantus. 6. Sick sinus syndrome status post pacemaker - per cardiology 7. Dementia/encephalopathy PLAN: Admit to Tele See admission orders DVT prophylaxis dw dr Chen/staff Subjective 24 Hr Interval Summary Free Text/Dictation nAD, SLEEPY- arousable, swallow eval pending. dw staff. Exam/Review of Systems Vital Signs Vitals Vital Signs Date Time Temp Pulse Resp B/P Pulse Ox O2 Delivery O2 Flow Rate FiO2 03/04/16 13:07 83 03/04/16 12:18 97.9 18 101/53 98 03/04/16 08:00 Nasal Cannula 2.0 Intake and Output 03/03/16 03/03/16 03/04/16 15:00 23:00 07:00 Intake Total 250 ml Balance 250 ml Exam Psych: nl mood/affect Eyes: EOMI, nl sclera ENMT: nl external ears & nose Neck: non-tender Respiratory: diminished breath sounds Cardiovascular: nl pulses Gastrointestinal: non-tender, soft Musculoskeletal: other Extremities: normal pulses Neurological: other Lymph: nontender Results Result Diagram: 03/04/16 0700 03/04/16 0700 Results 24 hrs Laboratory Tests Test 03/03/16 21:15 03/03/16 21:40 03/04/16 00:31 03/04/16 07:00 Anion Gap 13 14 Blood Urea Nitrogen 22 H 25 H Calcium Level 8.4 8.4 Carbon Dioxide Level 40 H 38 H Chloride Level 91 L 92 L Creatinine 0.70 0.73 Glucose Level 162 243 H Potassium Level 4.1 4.6 Sodium Level 140 139 Bedside Glucose 168 Creatine Kinase < 20 L < 20 L Creatine Kinase Index Creatinine Kinase MB (Mass) 1.24 0.89 Troponin I 0.065 0.058 B-Type Natriuretic Peptide 2790 H Band Neutrophils % 13.0 H Basophils # Basophils % Blood Morphology Comment Differential Comment MANUAL DIFF Eosinophils # Eosinophils % Hematocrit 31.4 L Hemoglobin 10.2 L Hemoglobin A1c 6.0 H Lymphocytes # 0.6 L Lymphocytes % 3.0 L Mean Corpuscular Hemoglobin 29.5 Mean Corpuscular Hemoglobin Concent 32.6 Mean Corpuscular Volume 90.5 Mean Platelet Volume 8.5 Monocytes # Monocytes % Neutrophils # 16.5 H Neutrophils % 84.0 H Nucleated Red Blood Cells # Nucleated Red Blood Cells % Platelet Count 499 #H Prealbumin 11.3 L Red Blood Count 3.47 L Red Cell Distribution Width 17.2 H White Blood Count 19.6 H Test 03/04/16 08:01 03/04/16 11:42 03/04/16 12:45 Bedside Glucose 260 H 182 Creatine Kinase < 20 L Creatine Kinase Index Creatinine Kinase MB (Mass) 0.75 Troponin I 0.031 Medications Medications Current Medications Ascorbic Acid (Vitamin C) 500 mg DAILY PO ; Start 03/04/16 at 09:00 Aspirin (Halfprin) 81 mg DAILY PO ; Start 03/04/16 at 09:00 Atorvastatin Calcium (Lipitor) 10 mg QHS PO Last administered on 03/03/16at 22: 05; Admin Dose 10 MG; Start 03/03/16 at 21:00 Benazepril HCl (Lotensin) 5 mg Q12 PO Last administered on 03/03/16at 22:06; Admin Dose 5 MG; Start 03/03/16 at 21:00 Docusate Sodium (Colace) 100 mg BID PO Last administered on 03/03/16at 22:05; Admin Dose 100 MG; Start 03/03/16 at 21:00 Finasteride (Proscar) 5 mg DAILY PO ; Start 03/04/16 at 09:00 Gabapentin (Neurontin) 100 mg TID PO Last administered on 03/03/16at 22:05; Admin Dose 100 MG; Start 03/03/16 at 21:00 Acetaminophen/ Hydrocodone Bitart ([place] (5/325)) 1 tab Q6H PRN PO PRN; Start 03/03/16 at 20:00 Ipratropium [place] (Atrovent Hfa) 2 puff Q6 INH Last administered on at 12:14; Admin Dose 2 PUFF; Start 03/04/16 at 00:00 Isosorbide Dinitrate (Isordil) 20 mg TID PO Last administered on 03/03/16at 22: 05; Admin Dose 20 MG; Start 03/03/16 at 21:00 Lactobacillus Acidoph/Bulgaricus (Floranex) 1 tab BID PO Last administered on 03/03/16at 22:05; Admin Dose 1 TAB; Start 03/03/16 at 22:00 Lactulose (Enulose) 20 gm DAILY PO ; Start 03/04/16 at 09:00 Al Hydrox/Mg Hydrox/Simethicone (Mag-Al Plus) 30 ml Q6H PRN PO DISTENSION/GAS/ BLOATING; Start 03/03/16 at 20:00 Metoprolol Tartrate (Lopressor) 75 mg BID PO Last administered on 03/03/16at 22 :06; Admin Dose 75 MG; Start 03/03/16 at 21:00 Multivitamins Therapeutic (Theragran) 1 tab DAILY PO ; Start 03/04/16 at 09:00 Nifedipine (Procardia Xl) 30 mg BID PO Last administered on 03/03/16at 22:05; Admin Dose 30 MG; Start 03/03/16 at 21:00 Nitroglycerin (Nitroglycerin (Sl Tab) 0.4 Mg) 1 tab [id number] PRN SL CHEST PAIN ; Start 03/03/16 at 20:00 Polyethylene Glycol (Miralax) 17 gm DAILY PO ; Start 03/04/16 at 09:00 Potassium Chloride (Klor-Con 20) 20 meq DAILY PO ; Start 03/04/16 at 09:00 Quetiapine Fumarate (Seroquel) 25 mg Q8 PO Last administered on 03/03/16at 22: 05; Admin Dose 25 MG; Start 03/03/16 at 22:00 Salmeterol Xinafoate/ Fluticasone (Advair 250/50 Diskus) 1 inh BID INH Last administered on 03/04/16at 09:59; Admin Dose 1 INH; Start 03/03/16 at 22:00 Zolpidem Tartrate (Ambien) 5 mg QHS PRN PO INSOMNIA; Start 03/03/16 at 20:00 Ondansetron HCl (Zofran Inj) 4 mg Q6H PRN IV NAUSEA AND/OR VOMITING; Start at 20:00 Methylprednisolone Sodium Succinate (Solu-Medrol) 40 mg Q12 IV Last administered on 03/04/16at 09:30; Admin Dose 40 MG; Start 03/03/16 at 21:00 Insulin Glargine (Lantus) 8 unit HS SC Last administered on 03/03/16at 22:09; Admin Dose 8 UNIT; Start 03/03/16 at 22:00 Diagnostic Test (Pha) (Accucheck) 1 ea 02 XX ; Start 03/04/16 at 02:00 Pantoprazole (Protonix Tab) 40 mg DAILY@06 PO ; Start 03/04/16 at 06:00 Miscellaneous Information 1 ea NOTE XX ; Start 03/03/16 at 21:00 Glucose (Glutose) 15 gm Q15M PRN PO DECREASED GLUCOSE; Start 03/03/16 at 21:00 Glucose (Glutose) 22.5 gm Q15M PRN PO DECREASED GLUCOSE; Start 03/03/16 at 21: 00 Dextrose (D50w Syringe) 25 ml Q15M PRN IV DECREASED GLUCOSE; Start 03/03/16 at 21:00 Dextrose (D50w Syringe) 50 ml Q15M PRN IV DECREASED GLUCOSE; Start 03/03/16 at 21:00 Glucagon (Glucagen) 1 mg Q15M PRN IM DECREASED GLUCOSE; Start 03/03/16 at 21: 00 Glucose 15 gm 15 gm Q15M PRN BUCCAL DECREASED GLUCOSE; Start 03/03/16 at 21:00 Dextrose/Sodium Chloride 1,000 ml @ 75 mls/hr [id number] IV Last administered on 03/04/16at 12:20; Admin Dose 75 MLS/HR; Start 03/04/16 at 12:30 Levofloxacin/ Dextrose 150 ml @ 100 mls/hr ONCE ONCE IVPB ; Start 03/04/16 at 15:00; Stop 03/04/16 at 16:29 Levofloxacin/ Dextrose (Levaquin 500mg/ D5W 100 ml (Pmx)) 100 ml @ 100 mls/hr Q24H IVPB ; Start 03/04/16 at 14:00 SOCO SIMS Mar 04, 2016 15:01
--- NOTE | 2016-03-04 15:20 | CONS ---
Date/Time of Note Date/Time of Note DATE: 03/04/16 TIME: 15:12 Assessment/Plan Assessment/Plan Chief Complaint/Hosp Course IMPRESSION: 1. Shortness of breath, assess for congestive heart failure. 2. Permanent pacemaker function. 3. Hypertension, under reasonable control on multiple oral antihypertensives. 4. Hypercapnic respiratory distress/chronic obstructive pulmonary disease exacerbation. 5. History of cardiomyopathy with mildly depressed left ventricular ejection fraction by most recent echo, February 2016. 6. Hypokalemia. 7. Anemia. 8. Leukocytosis. Recc: -tele -serial ecg's -Continue benazepril/procardia/BB/isordil as tolerated and will decrease doses to assure patient tolerates -Continue bronchodilators/steroids -Follow volume status closely Problems: Consultation Date/Type/Reason Admit Date/Time Mar 03, 2016 at 17:24 Initial Consult Date 03/03/2016 Type of Consultation: Cardiology Reason for Consultation PPM Referring Provider: GILLIAN GRIFFITH MD Exam/Review of Systems Vital Signs Vitals Vital Signs Date Time Temp Pulse Resp B/P Pulse Ox O2 Delivery O2 Flow Rate FiO2 03/04/16 13:07 83 03/04/16 12:18 97.9 18 101/53 98 03/04/16 08:00 Nasal Cannula 2.0 Intake and Output 03/03/16 03/03/16 03/04/16 15:00 23:00 07:00 Intake Total 250 ml Balance 250 ml Exam Review of Systems: CONSTITUTIONAL: No fevers, chills. PULMONARY: mild sob CARDIOVASCULAR: No chest pain/palpitations GASTROINTESTINAL: No nausea/vomiting. GENITOURINARY: No hematuria/dysuria. MUSCULOSKELETAL: No myagias/arthalgias. PSYCHIATRIC: The patient denies depression. NEUROLOGIC: No weakness Constitutional: alert Psych: no complaints Head: normocephalic ENMT: mucosa pink and moist Neck: jvd (9), supple Respiratory: diminished breath sounds (at bases/B) Cardiovascular: regular rate and rhythm Gastrointestinal: non-tender, soft Musculoskeletal: muscle tone (normal) Extremities: edema (none) Neurological: other (No focal deficits) Results Result Diagram: 03/04/16 0700 03/04/16 0700 Results 24 hrs Laboratory Tests Test 03/03/16 21:15 03/03/16 21:40 03/04/16 00:31 03/04/16 07:00 Anion Gap 13 14 Blood Urea Nitrogen 22 H 25 H Calcium Level 8.4 8.4 Carbon Dioxide Level 40 H 38 H Chloride Level 91 L 92 L Creatinine 0.70 0.73 Glucose Level 162 243 H Potassium Level 4.1 4.6 Sodium Level 140 139 Bedside Glucose 168 Creatine Kinase < 20 L < 20 L Creatine Kinase Index Creatinine Kinase MB (Mass) 1.24 0.89 Troponin I 0.065 0.058 B-Type Natriuretic Peptide 2790 H Band Neutrophils % 13.0 H Basophils # Basophils % Blood Morphology Comment Differential Comment MANUAL DIFF Eosinophils # Eosinophils % Hematocrit 31.4 L Hemoglobin 10.2 L Hemoglobin A1c 6.0 H Lymphocytes # 0.6 L Lymphocytes % 3.0 L Mean Corpuscular Hemoglobin 29.5 Mean Corpuscular Hemoglobin Concent 32.6 Mean Corpuscular Volume 90.5 Mean Platelet Volume 8.5 Monocytes # Monocytes % Neutrophils # 16.5 H Neutrophils % 84.0 H Nucleated Red Blood Cells # Nucleated Red Blood Cells % Platelet Count 499 #H Prealbumin 11.3 L Red Blood Count 3.47 L Red Cell Distribution Width 17.2 H White Blood Count 19.6 H Test 03/04/16 08:01 03/04/16 11:42 03/04/16 12:45 Bedside Glucose 260 H 182 Creatine Kinase < 20 L Creatine Kinase Index Creatinine Kinase MB (Mass) 0.75 Troponin I 0.031 Medications Medications Current Medications Ascorbic Acid (Vitamin C) 500 mg DAILY PO ; Start 03/04/16 at 09:00 Aspirin (Halfprin) 81 mg DAILY PO ; Start 03/04/16 at 09:00 Atorvastatin Calcium (Lipitor) 10 mg QHS PO Last administered on 03/03/16at 22: 05; Admin Dose 10 MG; Start 03/03/16 at 21:00 Benazepril HCl (Lotensin) 5 mg Q12 PO Last administered on 03/03/16at 22:06; Admin Dose 5 MG; Start 03/03/16 at 21:00 Docusate Sodium (Colace) 100 mg BID PO Last administered on 03/03/16at 22:05; Admin Dose 100 MG; Start 03/03/16 at 21:00 Finasteride (Proscar) 5 mg DAILY PO ; Start 03/04/16 at 09:00 Gabapentin (Neurontin) 100 mg TID PO Last administered on 03/03/16at 22:05; Admin Dose 100 MG; Start 03/03/16 at 21:00 Acetaminophen/ Hydrocodone Bitart ([place] (5/325)) 1 tab Q6H PRN PO PRN; Start 03/03/16 at 20:00 Ipratropium [place] (Atrovent Hfa) 2 puff Q6 INH Last administered on at 12:14; Admin Dose 2 PUFF; Start 03/04/16 at 00:00 Isosorbide Dinitrate (Isordil) 20 mg TID PO Last administered on 03/03/16at 22: 05; Admin Dose 20 MG; Start 03/03/16 at 21:00 Lactobacillus Acidoph/Bulgaricus (Floranex) 1 tab BID PO Last administered on 03/03/16at 22:05; Admin Dose 1 TAB; Start 03/03/16 at 22:00 Lactulose (Enulose) 20 gm DAILY PO ; Start 03/04/16 at 09:00 Al Hydrox/Mg Hydrox/Simethicone (Mag-Al Plus) 30 ml Q6H PRN PO DISTENSION/GAS/ BLOATING; Start 03/03/16 at 20:00 Metoprolol Tartrate (Lopressor) 75 mg BID PO Last administered on 03/03/16at 22 :06; Admin Dose 75 MG; Start 03/03/16 at 21:00 Multivitamins Therapeutic (Theragran) 1 tab DAILY PO ; Start 03/04/16 at 09:00 Nifedipine (Procardia Xl) 30 mg BID PO Last administered on 03/03/16at 22:05; Admin Dose 30 MG; Start 03/03/16 at 21:00 Nitroglycerin (Nitroglycerin (Sl Tab) 0.4 Mg) 1 tab [id number] PRN SL CHEST PAIN ; Start 03/03/16 at 20:00 Polyethylene Glycol (Miralax) 17 gm DAILY PO ; Start 03/04/16 at 09:00 Potassium Chloride (Klor-Con 20) 20 meq DAILY PO ; Start 03/04/16 at 09:00 Quetiapine Fumarate (Seroquel) 25 mg Q8 PO Last administered on 03/03/16at 22: 05; Admin Dose 25 MG; Start 03/03/16 at 22:00 Salmeterol Xinafoate/ Fluticasone (Advair 250/50 Diskus) 1 inh BID INH Last administered on 03/04/16at 09:59; Admin Dose 1 INH; Start 03/03/16 at 22:00 Zolpidem Tartrate (Ambien) 5 mg QHS PRN PO INSOMNIA; Start 03/03/16 at 20:00 Ondansetron HCl (Zofran Inj) 4 mg Q6H PRN IV NAUSEA AND/OR VOMITING; Start at 20:00 Methylprednisolone Sodium Succinate (Solu-Medrol) 40 mg Q12 IV Last administered on 03/04/16at 09:30; Admin Dose 40 MG; Start 03/03/16 at 21:00 Insulin Glargine (Lantus) 8 unit HS SC Last administered on 03/03/16at 22:09; Admin Dose 8 UNIT; Start 03/03/16 at 22:00 Diagnostic Test (Pha) (Accucheck) 1 ea 02 XX ; Start 03/04/16 at 02:00 Pantoprazole (Protonix Tab) 40 mg DAILY@06 PO ; Start 03/04/16 at 06:00 Miscellaneous Information 1 ea NOTE XX ; Start 03/03/16 at 21:00 Glucose (Glutose) 15 gm Q15M PRN PO DECREASED GLUCOSE; Start 03/03/16 at 21:00 Glucose (Glutose) 22.5 gm Q15M PRN PO DECREASED GLUCOSE; Start 03/03/16 at 21: 00 Dextrose (D50w Syringe) 25 ml Q15M PRN IV DECREASED GLUCOSE; Start 03/03/16 at 21:00 Dextrose (D50w Syringe) 50 ml Q15M PRN IV DECREASED GLUCOSE; Start 03/03/16 at 21:00 Glucagon (Glucagen) 1 mg Q15M PRN IM DECREASED GLUCOSE; Start 03/03/16 at 21: 00 Glucose 15 gm 15 gm Q15M PRN BUCCAL DECREASED GLUCOSE; Start 03/03/16 at 21:00 Dextrose/Sodium Chloride 1,000 ml @ 75 mls/hr [id number] IV Last administered on 03/04/16at 12:20; Admin Dose 75 MLS/HR; Start 03/04/16 at 12:30 Levofloxacin/ Dextrose 150 ml @ 100 mls/hr ONCE ONCE IVPB ; Start 03/04/16 at 15:00; Stop 03/04/16 at 16:29 Levofloxacin/ Dextrose (Levaquin 500mg/ D5W 100 ml (Pmx)) 100 ml @ 100 mls/hr Q24H IVPB ; Start 03/04/16 at 14:00 VAISHNAVI BUTTS Mar 04, 2016 15:20
[2016-03-04 16:21] LABS: AADO2 Arterial 63.3 mmHg (7.0-24.0); Allen Test ACCEPTAB; Arterial Base Excess 12.2 mmol/L (-3.0-3); Arterial COHb 0.3 % (0.0-3.0); Arterial Fraction of Oxyhgb 84.4 % (93.0-99.0); Arterial HCO3 39.5 mmol/L (22.0-26.0); Arterial MetHb 0.2 % (0.0-1.5); Arterial Total Hemglobin 10.8 g/dl (12.0-18.0); MODE NASAL CANNULA
[2016-03-04] MEDS: LEVOFLOXACIN 500MG/D5W (PMX) 100 ML IVPB SCH (16:40)
--- NOTE | 2016-03-04 17:47 | CONS ---
DATE OF ADMISSION: 03/03/2016 DATE OF CONSULTATION: 03/04/2016 TYPE OF CONSULTATION: Pulmonary. REFERRING PHYSICIAN: Dr. Barroso. REASON FOR CONSULTATION: Shortness of breath. HISTORY OF PRESENT ILLNESS: This is a 75-year-old gentleman with a history of cardiomyopathy, COPD, hypertension, congestive heart failure, sick sinus syndrome, status post pacemaker insertion, diabe mariann mellitus, and chronic anemia who presented to ER with complaints of increasing shortness of esteban th. The patient was found to be in congestive heart failure. The patient was seen by Dr. Ruddy st n cardiology consultation, and diuresis is started. The patient clinically feels better. Denies an y chest pain or other complaints at this time. The patient denied having any sputum production, hem optysis, pleuritic pain. REVIEW OF SYSTEMS: CONSTITUTIONAL: Denies fever, chills, night sweats. RESPIRATORY: As mentioned above. CARDIOVASCULAR: Denies anginal palpitation. GASTROINTESTINAL: Denies nausea, vomiting, diarrhea, abdominal pain. GENITOURINARY: Denies dysuria or hematuria. NEUROLOGICAL: Denies dizziness, loss of consciousness. PAST MEDICAL HISTORY: As mentioned above. ALLERGIES: NO KNOWN ALLERGIES. SOCIAL HABITS: Ex-smoker. FAMILY HISTORY: Noncontributory. PHYSICAL EXAMINATION: VITAL SIGNS: Blood pressure 101/53, pulse 83, respiration 18, temperature 97.9, currently on 2 lite rs O2 nasal cannula, saturating 98%. HEENT: Pupils are equal and reactive to light. NECK: Supple, no JVD noted, no cervical lymphadenopathy noted, no carotid bruits heard. LUNGS: Diminished breath sounds bilaterally. CARDIOVASCULAR: S1, S2 normal. ABDOMEN: Soft, nontender. No organomegaly or masses noted. EXTREMITIES: No clubbing or cyanosis noted. NEUROLOGICAL: Awake. LABORATORIES: WBC 19.6, hemoglobin 10.2, hematocrit 31.4, platelets 499. Troponin is 0.05. Sodium 139, potassium 4.6, chloride 92, CO2 38, BUN 25, creatinine 0.73, glucose 243. BNP was elevated at 2790. ABG showed a pH of 7.36, pCO2 of 71, pO2 of 71. Urine has 2 to 5 WBCs. Chest x-ray shows c hronic emphysema changes and subsegmental atelectasis. IMPRESSION: A 75-year-old male with 1. Congestive heart failure. 2. Chronic obstructive pulmonary disease exacerbation. 3. Hypertension. 4. Cardiomyopathy. 5. Anemia. 6. Pacemaker. 7. Diabetes mellitus. RECOMMENDATIONS: 1. Continue diuresis. 2. Bronchodilators. 3. Oxygen. 4. Cardiology noted. Dictated By: CASS MCLEAN MD, MA/KAT Conf#: [id number] DID#: [id number]
[2016-03-04] MEDS: ATORVASTATIN 10 MG TAB PO SCH (20:38)
[2016-03-04] MEDS: HYDROCODONE/APAP (5/325) TAB PO PRN (20:38)
[2016-03-04] MEDS: METOPROLOL 50 MG TAB PO SCH (20:39)
[2016-03-04] MEDS: INSULIN GLARGINE [LANtus] 3 ML PEN SC SCH (20:42)
[2016-03-04] MEDS ORDERED: METOPROLOL 25 MG TAB PO SCH (21:00)
[2016-03-04] MEDS ORDERED: INSULIN ASPART [NOVOLOG] 3 ML PEN SC SCH (21:00)
[2016-03-04] MEDS: ALBUTEROL/IPRATROPIUM (NEB) 3 ML AMP HHN SCH (21:55)
[2016-03-05] VITALS (13 sets, daily range): BP systolic 122–150; BP diastolic 60–82; PULSE 77–100; RESP 18–19
[2016-03-05] MEDS: DEXTROSE 5%-0.45% NACL 1,000 ML IV SCH ×3 (01:50→20:42)
[2016-03-05] MEDS: ACCUCHECK XX SCH (02:00)
[2016-03-05] MEDS: QUETIAPINE 25 MG TAB PO SCH ×3 (06:12→21:10)
[2016-03-05] MEDS: IPRATROPIUM (HFA) 12.9 GM INHALER INH SCH (06:12)
[2016-03-05] MEDS: PANTOPRAZOLE (EC) 40 MG TAB PO SCH (06:12)
[2016-03-05 08:11] LABS: POTASSIUM 4.2 mmol/L (3.5-5.1)
[2016-03-05 08:13] LABS: BASOPHIL # 0.1 10^3/ul (0.0-0.1); BASOPHILS % 0.3 % (0.0-2.0); HEMATOCRIT 31.1 % (42.0-52.0); HEMOGLOBIN 10.2 g/dl (14.0-18.0); LYMPHOCYTES # 0.6 10^3/ul (0.8-2.9); LYMPHOCYTES % 3.8 % (15.0-51.0); MEAN CORPUSCULAR HEMOGLOBIN 29.3 pg (29.0-33.0); MEAN CORPUSCULAR HGB CONC 32.7 g/dl (32.0-37.0); MEAN CORPUSCULAR VOLUME 89.6 fl (82.0-101.0); MEAN PLATELET VOLUME 8.2 fl (7.4-10.4); MONOCYTE # 0.4 10^3/ul (0.3-0.9); MONOCYTES % 2.6 % (0.0-11.0); NEUTROPHILS % 93.3 % (39.0-77.0); PLATELET COUNT 484 10^3/UL (140-440); RED BLOOD COUNT 3.47 10^6/ul (4.70-6.10); RED CELL DISTRIBUTION WIDTH 17.7 % (11.5-14.5)
[2016-03-05 08:14] LABS: CREATININE 0.64 mg/dl (0.61-1.24)
[2016-03-05 08:15] LABS: CALCIUM 8.5 mg/dl (8.4-10.2)
[2016-03-05 08:34] LABS: CONDITION 1; LH ANALYZER COMMENTS 1
[2016-03-05] MEDS: ALBUTEROL/IPRATROPIUM (NEB) 3 ML AMP HHN SCH ×4 (08:34→21:31)
[2016-03-05] MEDS: METHYLPREDNISOLONE 40 MG INJ IV SCH ×2 (09:12→20:42)
[2016-03-05] MEDS: LACTULOSE 30ML CUP PO SCH (09:13)
[2016-03-05] MEDS: SALMETEROL/FLUTICASONE 250/50 INHA INH SCH ×2 (09:13→20:42)
[2016-03-05] MEDS: ISOSORBIDE DINITRATE 20 MG TAB PO SCH ×3 (09:13→20:56)
[2016-03-05] MEDS: POLYETHYLENE GLYCOL 17 GM PACKET PO SCH (09:13)
[2016-03-05] MEDS: BENAZEPRIL 5 MG TAB PO SCH ×2 (09:14→20:56)
[2016-03-05] MEDS: GABAPENTIN 100 MG CAP PO SCH ×3 (09:14→20:43)
[2016-03-05] MEDS: DOCUSATE SODIUM 100 MG CAP PO SCH ×2 (09:14→20:43)
[2016-03-05] MEDS: LACTOBACILLUS CHEW TAB PO SCH ×2 (09:14→20:42)
[2016-03-05] MEDS: ASPIRIN (EC) 81 MG TAB PO SCH (09:14)
[2016-03-05] MEDS: NIFEdipine (XL) 30 MG TAB PO SCH ×2 (09:14→20:55)
[2016-03-05] MEDS: FINASTERIDE 5 MG TAB PO SCH (09:14)
[2016-03-05] MEDS: MULTIVITAMINS THERAPEUTIC TAB PO SCH (09:14)
[2016-03-05] MEDS: METOPROLOL 50 MG TAB PO SCH ×2 (09:15→20:57)
[2016-03-05] MEDS: ASCORBIC ACID 500 MG TAB PO SCH (09:15)
[2016-03-05] MEDS: POTASSIUM CHLORIDE (SR) 20 MEQ TAB PO SCH (09:15)
[2016-03-05] MEDS: ENOXAPARIN 40 MG/0.4 ML SYG SC SCH (09:17)
[2016-03-05] MEDS: HYDROCODONE/APAP (5/325) TAB PO PRN ×3 (10:24→20:44)
--- NOTE | 2016-03-05 12:51 | PN ---
Date/Time of Note Date/Time of Note DATE: 03/05/16 TIME: 12:49 Assessment/Plan VTE Prophylaxis VTE Prophylaxis Intervention: LMWH Lines/Catheters IV Catheter Type (from Nrs): Peripheral IV Urinary Cath still in place: Yes Reason Cath still needed: pres ulcer contaminated by urine, skin wounds contaminated by urine Assessment/Plan Chief Complaint/Hosp Course 1. Acute hypercapnic respiratory failure - pulmonary consult- Dr Drew - breathing treatment - on o2 by NC 2. Chronic obstructive pulmonary disease with acute exacerbation - Continue bronchodilators. 3. Dehydration 4. Hypertension. - Continue patient on Benazepril and metoprolol. 5. Diabetes mellitus type 2. - Continue on NovoLog and Lantus - monitor blood sugar 6. Sick sinus syndrome status post pacemaker - per cardiology 7. Dementia/encephalopathy Problems: Subjective 24 Hr Interval Summary Free Text/Dictation Patient is wondering why he is still in the hospital. Exam/Review of Systems Vital Signs Vitals Vital Signs Date Time Temp Pulse Resp B/P Pulse Ox O2 Delivery O2 Flow Rate FiO2 03/05/16 11:52 98.3 85 19 150/70 97 03/05/16 08:35 Nasal Cannula 4.0 Intake and Output 03/04/16 03/04/16 03/05/16 15:00 23:00 07:00 Intake Total 700 ml 1000 ml Output Total 800 ml Balance 700 ml 200 ml Exam Constitutional: alert, oriented, well developed Neck: supple Respiratory: diminished breath sounds Cardiovascular: regular rate and rhythm Gastrointestinal: non-tender, soft Results Result Diagram: 03/05/16 0717 03/05/16 0717 Results 24 hrs Laboratory Tests Test 03/04/16 15:39 03/04/16 17:21 03/04/16 20:34 03/05/16 07:17 Arterial Blood HCO3 39.5 H Arterial Blood Base Excess 12.2 H Arterial Blood Oxygen Saturation 84.8 L Pako Test ACCEPTAB Arterial Blood Gas Puncture Site Left Radial Arterial Blood Carboxyhemoglobin 0.3 Arterial Blood Date Drawn 03/04/2016 4:10:51 PM Arterial Blood Methemoglobin 0.2 Arterial Blood pCO2 (Temp correct) 67.5 H Arterial Blood pH (Temp corrected) 7.385 Arterial Blood pO2 (Temp corrected) 49.4 *L Blood Gas A-a O2 Differential 63.3 H Blood Gas Critical Value Read Back Aron KILLIAN R.N Blood Gas Modality NASAL CANNULA Blood Gas Notified Time 03/04/2016 4:20:50 PM Blood Gas Notified Whom MM Blood Gas Specimen Source Blood arterial Blood Gas Temperature 37.0 FiO2 27.0 Oxyhemoglobin Percent 84.4 L Total Hemoglobin 10.8 L Bedside Glucose 183 128 Anion Gap 11 Basophils # 0.1 Basophils % 0.3 Blood Morphology Comment Blood Urea Nitrogen 23 H Calcium Level 8.5 Carbon Dioxide Level 39 H Chloride Level 94 L Creatinine 0.64 Eosinophils # 0.0 Eosinophils % 0.0 Glucose Level 222 H Hematocrit 31.1 L Hemoglobin 10.2 L Lymphocytes # 0.6 L Lymphocytes % 3.8 L Mean Corpuscular Hemoglobin 29.3 Mean Corpuscular Hemoglobin Concent 32.7 Mean Corpuscular Volume 89.6 Mean Platelet Volume 8.2 Monocytes # 0.4 Monocytes % 2.6 Neutrophils # 14.0 H Neutrophils % 93.3 H Nucleated Red Blood Cells # 0.0 Nucleated Red Blood Cells % 0.0 Platelet Count 484 H Potassium Level 4.2 Red Blood Count 3.47 L Red Cell Distribution Width 17.7 H Sodium Level 140 White Blood Count 15.0 #H Medications Medications Current Medications Ascorbic Acid (Vitamin C) 500 mg DAILY PO Last administered on 03/05/16 09:15 ; Admin Dose 500 MG; Start 03/04/16 at 09:00 Aspirin (Halfprin) 81 mg DAILY PO Last administered on 03/05/16 09:14; Admin Dose 81 MG; Start 03/04/16 at 09:00 Atorvastatin Calcium (Lipitor) 10 mg QHS PO Last administered on 03/04/16 20: 38; Admin Dose 10 MG; Start 03/03/16 at 21:00 Benazepril HCl (Lotensin) 5 mg Q12 PO Last administered on 03/05/16 09:14; Admin Dose 5 MG; Start 03/03/16 at 21:00 Docusate Sodium (Colace) 100 mg BID PO Last administered on 03/05/16 09:14; Admin Dose 100 MG; Start 03/03/16 at 21:00 Finasteride (Proscar) 5 mg DAILY PO Last administered on 03/05/16 09:14; Admin Dose 5 MG; Start 03/04/16 at 09:00 Gabapentin (Neurontin) 100 mg TID PO Last administered on 03/05/16 09:14; Admin Dose 100 MG; Start 03/03/16 at 21:00 Acetaminophen/ Hydrocodone Bitart ([place] (5/325)) 1 tab Q6H PRN PO PRN Last administered on 03/05/16 10:24; Admin Dose 1 TAB; Start 03/03/16 at 20:00 Ipratropium [place] (Atrovent Hfa) 2 puff Q6 INH Last administered on 06:12; Admin Dose 2 PUFF; Start 03/04/16 at 00:00 Isosorbide Dinitrate (Isordil) 20 mg TID PO Last administered on 03/05/16 09: 13; Admin Dose 20 MG; Start 03/03/16 at 21:00 Lactobacillus Acidoph/Bulgaricus (Floranex) 1 tab BID PO Last administered on 03/05/16 09:14; Admin Dose 1 TAB; Start 03/03/16 at 22:00 Lactulose (Enulose) 20 gm DAILY PO Last administered on 03/05/16 09:13; Admin Dose 20 GM; Start 03/04/16 at 09:00 Al Hydrox/Mg Hydrox/Simethicone (Mag-Al Plus) 30 ml Q6H PRN PO DISTENSION/GAS/ BLOATING; Start 03/03/16 at 20:00 Multivitamins Therapeutic (Theragran) 1 tab DAILY PO Last administered on 03/05 09:14; Admin Dose 1 TAB; Start 03/04/16 at 09:00 Nifedipine (Procardia Xl) 30 mg BID PO Last administered on 03/05/16 09:14; Admin Dose 30 MG; Start 03/03/16 at 21:00 Nitroglycerin (Nitroglycerin (Sl Tab) 0.4 Mg) 1 tab [id number] PRN SL CHEST PAIN ; Start 03/03/16 at 20:00 Polyethylene Glycol (Miralax) 17 gm DAILY PO Last administered on 03/05/16 09 :13; Admin Dose 17 GM; Start 03/04/16 at 09:00 Potassium Chloride (Klor-Con 20) 20 meq DAILY PO Last administered on 09:15; Admin Dose 20 MEQ; Start 03/04/16 at 09:00 Quetiapine Fumarate (Seroquel) 25 mg Q8 PO Last administered on 03/05/16at 06: 12; Admin Dose 25 MG; Start 03/03/16 at 22:00 Salmeterol Xinafoate/ Fluticasone (Advair 250/50 Diskus) 1 inh BID INH Last administered on 03/05/16at 09:13; Admin Dose 1 INH; Start 03/03/16 at 22:00 Zolpidem Tartrate (Ambien) 5 mg QHS PRN PO INSOMNIA; Start 03/03/16 at 20:00 Ondansetron HCl (Zofran Inj) 4 mg Q6H PRN IV NAUSEA AND/OR VOMITING; Start at 20:00 Methylprednisolone Sodium Succinate (Solu-Medrol) 40 mg Q12 IV Last administered on 03/05/16at 09:12; Admin Dose 40 MG; Start 03/03/16 at 21:00 Insulin Glargine (Lantus) 8 unit HS SC Last administered on 03/04/16at 20:42; Admin Dose 8 UNIT; Start 03/03/16 at 22:00 Diagnostic Test (Pha) (Accucheck) 1 ea 02 XX ; Start 03/04/16 at 02:00 Pantoprazole (Protonix Tab) 40 mg DAILY@06 PO Last administered on 03/05/16at 06:12; Admin Dose 40 MG; Start 03/04/16 at 06:00 Miscellaneous Information 1 ea NOTE XX ; Start 03/03/16 at 21:00 Glucose (Glutose) 15 gm Q15M PRN PO DECREASED GLUCOSE; Start 03/03/16 at 21:00 Glucose (Glutose) 22.5 gm Q15M PRN PO DECREASED GLUCOSE; Start 03/03/16 at 21: 00 Dextrose (D50w Syringe) 25 ml Q15M PRN IV DECREASED GLUCOSE; Start 03/03/16 at 21:00 Dextrose (D50w Syringe) 50 ml Q15M PRN IV DECREASED GLUCOSE; Start 03/03/16 at 21:00 Glucagon (Glucagen) 1 mg Q15M PRN IM DECREASED GLUCOSE; Start 03/03/16 at 21: 00 Glucose 15 gm 15 gm Q15M PRN BUCCAL DECREASED GLUCOSE; Start 03/03/16 at 21:00 Dextrose/Sodium Chloride 1,000 ml @ 75 mls/hr [id number] IV Last administered on 03/04/16 12:20; Admin Dose 75 MLS/HR; Start 03/04/16 at 12:30 Levofloxacin/ Dextrose (Levaquin 500mg/ D5W 100 ml (Pmx)) 100 ml @ 100 mls/hr Q24H IVPB Last administered on 03/04/16at 16:40; Admin Dose 100 MLS/HR; Start 03/04/16 at 14:00 Metoprolol Tartrate (Lopressor) 50 mg BID PO Last administered on 03/05/16at 09 :15; Admin Dose 50 MG; Start 03/04/16 at 21:00 Enoxaparin Sodium (Lovenox) 40 mg DAILY SC Last administered on 03/05/16 09: 17; Admin Dose 40 MG; Start 03/05/16 at 09:00 GAYE LUO Mar 05, 2016 12:51
[2016-03-05] MEDS: LEVOFLOXACIN 500MG/D5W (PMX) 100 ML IVPB SCH (12:55)
--- NOTE | 2016-03-05 15:56 | CONS ---
Date/Time of Note Date/Time of Note DATE: 03/05/16 TIME: 15:50 Assessment/Plan Assessment/Plan Additional Assessment/Plan Acute exacerbation of congestive heart failure, Cardiomyopathy, hypertension, Respiratory failure, Anemia, Diabetes and dyslipidemia Avoid Volume Overload Restrict fluids 1500cc/ 24 hours Continue Imdur Continue Nifedipine and Metoprolol Continue Benazepril Continue Insulin Continue Lipitor Continue Antibiotics Consultation Date/Type/Reason Admit Date/Time Mar 03, 2016 at 17:24 Constitutional: no complaints Eyes: no complaints ENT: no complaints Respiratory: shortness of breath Cardiovascular: no complaints Gastrointestinal: no complaints Genitourinary: no complaints Musculoskeletal: no complaints Skin: no complaints Psychological: no complaints Social History Smoking Status: Former smoker Exam/Review of Systems Vital Signs Vitals Vital Signs Date Time Temp Pulse Resp B/P Pulse Ox O2 Delivery O2 Flow Rate FiO2 03/05/16 13:18 87 03/05/16 11:52 98.3 19 150/70 97 03/05/16 08:35 Nasal Cannula 4.0 Intake and Output 03/04/16 03/04/16 03/05/16 15:00 23:00 07:00 Intake Total 700 ml 1000 ml Output Total 800 ml Balance 700 ml 200 ml Exam Constitutional: alert, oriented Head: atraumatic, normocephalic Eyes: EOMI, nl conjunctiva Neck: non-tender, supple Respiratory: clear to auscultation Cardiovascular: regular rate and rhythm Gastrointestinal: nl liver, spleen, non-tender, soft Extremities: normal pulses Results Result Diagram: 03/05/16 0717 03/05/16 0717 Results 24 hrs Laboratory Tests Test 03/04/16 17:21 03/04/16 20:34 03/05/16 07:17 Bedside Glucose 183 128 Anion Gap 11 Basophils # 0.1 Basophils % 0.3 Blood Morphology Comment Blood Urea Nitrogen 23 H Calcium Level 8.5 Carbon Dioxide Level 39 H Chloride Level 94 L Creatinine 0.64 Eosinophils # 0.0 Eosinophils % 0.0 Glucose Level 222 H Hematocrit 31.1 L Hemoglobin 10.2 L Lymphocytes # 0.6 L Lymphocytes % 3.8 L Mean Corpuscular Hemoglobin 29.3 Mean Corpuscular Hemoglobin Concent 32.7 Mean Corpuscular Volume 89.6 Mean Platelet Volume 8.2 Monocytes # 0.4 Monocytes % 2.6 Neutrophils # 14.0 H Neutrophils % 93.3 H Nucleated Red Blood Cells # 0.0 Nucleated Red Blood Cells % 0.0 Platelet Count 484 H Potassium Level 4.2 Red Blood Count 3.47 L Red Cell Distribution Width 17.7 H Sodium Level 140 White Blood Count 15.0 #H Medications Medications Current Medications Ascorbic Acid (Vitamin C) 500 mg DAILY PO Last administered on 03/05/16 09:15 ; Admin Dose 500 MG; Start 03/04/16 at 09:00 Aspirin (Halfprin) 81 mg DAILY PO Last administered on 03/05/16 09:14; Admin Dose 81 MG; Start 03/04/16 at 09:00 Atorvastatin Calcium (Lipitor) 10 mg QHS PO Last administered on 03/04/16 20: 38; Admin Dose 10 MG; Start 03/03/16 at 21:00 Benazepril HCl (Lotensin) 5 mg Q12 PO Last administered on 03/05/16 09:14; Admin Dose 5 MG; Start 03/03/16 at 21:00 Docusate Sodium (Colace) 100 mg BID PO Last administered on 03/05/16 09:14; Admin Dose 100 MG; Start 03/03/16 at 21:00 Finasteride (Proscar) 5 mg DAILY PO Last administered on 03/05/16 09:14; Admin Dose 5 MG; Start 03/04/16 at 09:00 Gabapentin (Neurontin) 100 mg TID PO Last administered on 03/05/16 12:55; Admin Dose 100 MG; Start 03/03/16 at 21:00 Acetaminophen/ Hydrocodone Bitart ([place] (5/325)) 1 tab Q6H PRN PO PRN Last administered on 03/05/16 10:24; Admin Dose 1 TAB; Start 03/03/16 at 20:00 Ipratropium [place] (Atrovent Hfa) 2 puff Q6 INH Last administered on 06:12; Admin Dose 2 PUFF; Start 03/04/16 at 00:00 Isosorbide Dinitrate (Isordil) 20 mg TID PO Last administered on 03/05/16 12: 56; Admin Dose 20 MG; Start 03/03/16 at 21:00 Lactobacillus Acidoph/Bulgaricus (Floranex) 1 tab BID PO Last administered on 03/05/16 09:14; Admin Dose 1 TAB; Start 03/03/16 at 22:00 Lactulose (Enulose) 20 gm DAILY PO Last administered on 03/05/16 09:13; Admin Dose 20 GM; Start 03/04/16 at 09:00 Al Hydrox/Mg Hydrox/Simethicone (Mag-Al Plus) 30 ml Q6H PRN PO DISTENSION/GAS/ BLOATING; Start 03/03/16 at 20:00 Multivitamins Therapeutic (Theragran) 1 tab DAILY PO Last administered on 03/05 09:14; Admin Dose 1 TAB; Start 03/04/16 at 09:00 Nifedipine (Procardia Xl) 30 mg BID PO Last administered on 03/05/16 09:14; Admin Dose 30 MG; Start 03/03/16 at 21:00 Nitroglycerin (Nitroglycerin (Sl Tab) 0.4 Mg) 1 tab [id number] PRN SL CHEST PAIN ; Start 03/03/16 at 20:00 Polyethylene Glycol (Miralax) 17 gm DAILY PO Last administered on 03/05/16 09 :13; Admin Dose 17 GM; Start 03/04/16 at 09:00 Potassium Chloride (Klor-Con 20) 20 meq DAILY PO Last administered on 09:15; Admin Dose 20 MEQ; Start 03/04/16 at 09:00 Quetiapine Fumarate (Seroquel) 25 mg Q8 PO Last administered on 03/05/16 12: 56; Admin Dose 25 MG; Start 03/03/16 at 22:00 Salmeterol Xinafoate/ Fluticasone (Advair 250/50 Diskus) 1 inh BID INH Last administered on 03/05/16 09:13; Admin Dose 1 INH; Start 03/03/16 at 22:00 Zolpidem Tartrate (Ambien) 5 mg QHS PRN PO INSOMNIA; Start 03/03/16 at 20:00 Ondansetron HCl (Zofran Inj) 4 mg Q6H PRN IV NAUSEA AND/OR VOMITING; Start at 20:00 Methylprednisolone Sodium Succinate (Solu-Medrol) 40 mg Q12 IV Last administered on 03/05/16 09:12; Admin Dose 40 MG; Start 03/03/16 at 21:00 Insulin Glargine (Lantus) 8 unit HS SC Last administered on 03/04/16at 20:42; Admin Dose 8 UNIT; Start 03/03/16 at 22:00 Diagnostic Test (Pha) (Accucheck) 1 ea 02 XX ; Start 03/04/16 at 02:00 Pantoprazole (Protonix Tab) 40 mg DAILY@06 PO Last administered on 03/05/16at 06:12; Admin Dose 40 MG; Start 03/04/16 at 06:00 Miscellaneous Information 1 ea NOTE XX ; Start 03/03/16 at 21:00 Glucose (Glutose) 15 gm Q15M PRN PO DECREASED GLUCOSE; Start 03/03/16 at 21:00 Glucose (Glutose) 22.5 gm Q15M PRN PO DECREASED GLUCOSE; Start 03/03/16 at 21: 00 Dextrose (D50w Syringe) 25 ml Q15M PRN IV DECREASED GLUCOSE; Start 03/03/16 at 21:00 Dextrose (D50w Syringe) 50 ml Q15M PRN IV DECREASED GLUCOSE; Start 03/03/16 at 21:00 Glucagon (Glucagen) 1 mg Q15M PRN IM DECREASED GLUCOSE; Start 03/03/16 at 21: 00 Glucose 15 gm 15 gm Q15M PRN BUCCAL DECREASED GLUCOSE; Start 03/03/16 at 21:00 Dextrose/Sodium Chloride 1,000 ml @ 75 mls/hr [id number] IV Last administered on 03/04/16at 12:20; Admin Dose 75 MLS/HR; Start 03/04/16 at 12:30 Levofloxacin/ Dextrose (Levaquin 500mg/ D5W 100 ml (Pmx)) 100 ml @ 100 mls/hr Q24H IVPB Last administered on 03/05/16at 12:55; Admin Dose 100 MLS/HR; Start 03/04/16 at 14:00 Metoprolol Tartrate (Lopressor) 50 mg BID PO Last administered on 03/05/16at 09 :15; Admin Dose 50 MG; Start 03/04/16 at 21:00 Enoxaparin Sodium (Lovenox) 40 mg DAILY SC Last administered on 03/05/16at 09: 17; Admin Dose 40 MG; Start 03/05/16 at 09:00 TG HUI M.D. Mar 05, 2016 15:56
[2016-03-05] MEDS ORDERED: VITAMIN A & D 5 GM OINT PACKET TOP ONE (16:36)
[2016-03-05] MEDS: ATORVASTATIN 10 MG TAB PO SCH (20:43)
[2016-03-05] MEDS: INSULIN GLARGINE [LANtus] 3 ML PEN SC SCH (21:08)
[2016-03-05] MEDS: MECLIZINE 25 MG TAB PO SCH (22:31)
[2016-03-05] MEDS: ZOLPIDEM 5 MG TAB PO PRN (22:37)
[2016-03-06] VITALS (12 sets, daily range): BP systolic 122–149; BP diastolic 61–81; PULSE 73–90; RESP 16–20
[2016-03-06] MEDS: ACCUCHECK XX SCH (01:10)
[2016-03-06] MEDS: DEXTROSE 5%-0.45% NACL 1,000 ML IV SCH ×3 (03:33→17:50)
[2016-03-06] MEDS: HYDROCODONE/APAP (5/325) TAB PO PRN ×5 (04:45→23:15)
[2016-03-06] MEDS: QUETIAPINE 25 MG TAB PO SCH ×3 (05:02→21:11)
[2016-03-06] MEDS: PANTOPRAZOLE (EC) 40 MG TAB PO SCH (05:02)
[2016-03-06] MEDS: MECLIZINE 25 MG TAB PO SCH ×5 (05:02→23:15)
[2016-03-06] MEDS: IPRATROPIUM (HFA) 12.9 GM INHALER INH SCH ×4 (05:03→18:00)
[2016-03-06] MEDS: ASCORBIC ACID 500 MG TAB PO SCH (08:51)
[2016-03-06] MEDS: BENAZEPRIL 5 MG TAB PO SCH ×2 (08:52→21:12)
[2016-03-06] MEDS: DOCUSATE SODIUM 100 MG CAP PO SCH ×2 (08:52→21:11)
[2016-03-06] MEDS: ASPIRIN (EC) 81 MG TAB PO SCH (08:52)
[2016-03-06] MEDS: NIFEdipine (XL) 30 MG TAB PO SCH ×2 (08:52→21:16)
[2016-03-06] MEDS: LACTOBACILLUS CHEW TAB PO SCH ×2 (08:52→21:11)
[2016-03-06] MEDS: GABAPENTIN 100 MG CAP PO SCH ×3 (08:52→21:11)
[2016-03-06] MEDS: FINASTERIDE 5 MG TAB PO SCH (08:53)
[2016-03-06] MEDS: ISOSORBIDE DINITRATE 20 MG TAB PO SCH ×3 (08:53→21:17)
[2016-03-06] MEDS: MULTIVITAMINS THERAPEUTIC TAB PO SCH (08:53)
[2016-03-06] MEDS: METOPROLOL 50 MG TAB PO SCH ×2 (08:53→21:14)
[2016-03-06] MEDS: POLYETHYLENE GLYCOL 17 GM PACKET PO SCH (08:54)
[2016-03-06] MEDS: METHYLPREDNISOLONE 40 MG INJ IV SCH ×2 (08:54→21:08)
[2016-03-06] MEDS: SALMETEROL/FLUTICASONE 250/50 INHA INH SCH ×2 (08:54→21:07)
[2016-03-06] MEDS: POTASSIUM CHLORIDE (SR) 20 MEQ TAB PO SCH (08:54)
[2016-03-06] MEDS: ENOXAPARIN 40 MG/0.4 ML SYG SC SCH (08:55)
[2016-03-06] MEDS: LACTULOSE 30ML CUP PO SCH (08:55)
[2016-03-06] MEDS: ALBUTEROL/IPRATROPIUM (NEB) 3 ML AMP HHN SCH ×4 (09:34→20:43)
--- NOTE | 2016-03-06 12:45 | PN ---
Date/Time of Note Date/Time of Note DATE: 03/06/16 TIME: 12:43 Assessment/Plan VTE Prophylaxis VTE Prophylaxis Intervention: LMWH Lines/Catheters IV Catheter Type (from Nrs): [place] Urinary Cath still in place: Yes Reason Cath still needed: skin wounds contaminated by urine Assessment/Plan Chief Complaint/Hosp Course 1. Acute hypercapnic respiratory failure - stable on o2 by NC 2. Chronic obstructive pulmonary disease with acute exacerbation - Continue bronchodilators. 3. Dehydration - monitor 4. Hypertension. - stable. 5. Diabetes mellitus type 2. - monitor blood sugar 6. Sick sinus syndrome status post pacemaker - per cardiology 7. Dementia/encephalopathy Problems: Subjective 24 Hr Interval Summary Free Text/Dictation Patient has no complaints Exam/Review of Systems Vital Signs Vitals Vital Signs Date Time Temp Pulse Resp B/P Pulse Ox O2 Delivery O2 Flow Rate FiO2 03/06/16 12:07 90 03/06/16 11:56 98.0 18 148/67 98 03/06/16 09:36 Nasal Cannula 4.0 Intake and Output 03/05/16 03/05/16 03/06/16 15:00 23:00 07:00 Intake Total 575 ml 1425 ml Output Total 400 ml 600 ml Balance 175 ml 825 ml Exam Constitutional: well developed Respiratory: diminished breath sounds Cardiovascular: regular rate and rhythm Gastrointestinal: non-tender, soft Extremities: normal pulses Results Result Diagram: 03/05/1671603/05/1617 Results 24 hrs Laboratory Tests Test 03/05/16 21:04 Bedside Glucose 329 H Medications Medications Current Medications Ascorbic Acid (Vitamin C) 500 mg DAILY PO Last administered on 03/06/16at 08:51 ; Admin Dose 500 MG; Start 03/04/16 at 09:00 Aspirin (Halfprin) 81 mg DAILY PO Last administered on 03/06/16at 08:52; Admin Dose 81 MG; Start 03/04/16 at 09:00 Atorvastatin Calcium (Lipitor) 10 mg QHS PO Last administered on 03/05/16at 20: 43; Admin Dose 10 MG; Start 03/03/16 at 21:00 Benazepril HCl (Lotensin) 5 mg Q12 PO Last administered on 03/06/16at 08:52; Admin Dose 5 MG; Start 03/03/16 at 21:00 Docusate Sodium (Colace) 100 mg BID PO Last administered on 03/06/16 08:52; Admin Dose 100 MG; Start 03/03/16 at 21:00 Finasteride (Proscar) 5 mg DAILY PO Last administered on 03/06/16 08:53; Admin Dose 5 MG; Start 03/04/16 at 09:00 Gabapentin (Neurontin) 100 mg TID PO Last administered on 03/06/16 08:52; Admin Dose 100 MG; Start 03/03/16 at 21:00 Ipratropium [place] (Atrovent Hfa) 2 puff Q6 INH Last administered on 05:03; Admin Dose 2 PUFF; Start 03/04/16 at 00:00 Isosorbide Dinitrate (Isordil) 20 mg TID PO Last administered on 03/06/16 08: 53; Admin Dose 20 MG; Start 03/03/16 at 21:00 Lactobacillus Acidoph/Bulgaricus (Floranex) 1 tab BID PO Last administered on 03/06/16 08:52; Admin Dose 1 TAB; Start 03/03/16 at 22:00 Lactulose (Enulose) 20 gm DAILY PO Last administered on 03/05/16 09:13; Admin Dose 20 GM; Start 03/04/16 at 09:00 Al Hydrox/Mg Hydrox/Simethicone (Mag-Al Plus) 30 ml Q6H PRN PO DISTENSION/GAS/ BLOATING; Start 03/03/16 at 20:00 Multivitamins Therapeutic (Theragran) 1 tab DAILY PO Last administered on 03/06 08:53; Admin Dose 1 TAB; Start 03/04/16 at 09:00 Nifedipine (Procardia Xl) 30 mg BID PO Last administered on 03/06/16 08:52; Admin Dose 30 MG; Start 03/03/16 at 21:00 Nitroglycerin (Nitroglycerin (Sl Tab) 0.4 Mg) 1 tab [id number] PRN SL CHEST PAIN ; Start 03/03/16 at 20:00 Polyethylene Glycol (Miralax) 17 gm DAILY PO Last administered on 03/06/16 08 :54; Admin Dose 17 GM; Start 03/04/16 at 09:00 Potassium Chloride (Klor-Con 20) 20 meq DAILY PO Last administered on 08:54; Admin Dose 20 MEQ; Start 03/04/16 at 09:00 Quetiapine Fumarate (Seroquel) 25 mg Q8 PO Last administered on 03/06/16at 05: 02; Admin Dose 25 MG; Start 03/03/16 at 22:00 Salmeterol Xinafoate/ Fluticasone (Advair 250/50 Diskus) 1 inh BID INH Last administered on 03/06/16at 08:54; Admin Dose 1 INH; Start 03/03/16 at 22:00 Zolpidem Tartrate (Ambien) 5 mg QHS PRN PO INSOMNIA Last administered on at 22:37; Admin Dose 5 MG; Start 03/03/16 at 20:00 Ondansetron HCl (Zofran Inj) 4 mg Q6H PRN IV NAUSEA AND/OR VOMITING; Start at 20:00 Methylprednisolone Sodium Succinate (Solu-Medrol) 40 mg Q12 IV Last administered on 03/06/16at 08:54; Admin Dose 40 MG; Start 03/03/16 at 21:00 Insulin Glargine (Lantus) 8 unit HS SC Last administered on 03/05/16at 21:08; Admin Dose 8 UNIT; Start 03/03/16 at 22:00 Diagnostic Test (Pha) (Accucheck) 1 ea 02 XX ; Start 03/04/16 at 02:00 Pantoprazole (Protonix Tab) 40 mg DAILY@06 PO Last administered on 03/06/16at 05:02; Admin Dose 40 MG; Start 03/04/16 at 06:00 Miscellaneous Information 1 ea NOTE XX ; Start 03/03/16 at 21:00 Glucose (Glutose) 15 gm Q15M PRN PO DECREASED GLUCOSE; Start 03/03/16 at 21:00 Glucose (Glutose) 22.5 gm Q15M PRN PO DECREASED GLUCOSE; Start 03/03/16 at 21: 00 Dextrose (D50w Syringe) 25 ml Q15M PRN IV DECREASED GLUCOSE; Start 03/03/16 at 21:00 Dextrose (D50w Syringe) 50 ml Q15M PRN IV DECREASED GLUCOSE; Start 03/03/16 at 21:00 Glucagon (Glucagen) 1 mg Q15M PRN IM DECREASED GLUCOSE; Start 03/03/16 at 21: 00 Glucose 15 gm 15 gm Q15M PRN BUCCAL DECREASED GLUCOSE; Start 03/03/16 at 21:00 Dextrose/Sodium Chloride 1,000 ml @ 75 mls/hr [id number] IV Last administered on 03/05/16 20:41; Admin Dose 75 MLS/HR; Start 03/04/16 at 12:30 Levofloxacin/ Dextrose (Levaquin 500mg/ D5W 100 ml (Pmx)) 100 ml @ 100 mls/hr Q24H IVPB Last administered on 03/05/16 12:55; Admin Dose 100 MLS/HR; Start 03/04/16 at 14:00 Metoprolol Tartrate (Lopressor) 50 mg BID PO Last administered on 03/06/16 08 :53; Admin Dose 50 MG; Start 03/04/16 at 21:00 Enoxaparin Sodium (Lovenox) 40 mg DAILY SC Last administered on 03/06/16 08: 55; Admin Dose 40 MG; Start 03/05/16 at 09:00 Acetaminophen/ Hydrocodone Bitart ([place] (5/325)) 1 tab Q4 PRN PO PRN Last administered on 03/06/16 08:51; Admin Dose 1 TAB; Start 03/05/16 at 21:00 Meclizine HCl (Antivert) 25 mg Q6 PO Last administered on 03/06/16 11:49; Admin Dose 25 MG; Start 03/05/16 at 20:30 GAYE LUO Mar 06, 2016 12:45
[2016-03-06] MEDS: LEVOFLOXACIN 500MG/D5W (PMX) 100 ML IVPB SCH (13:10)
[2016-03-06] MEDS: INSULIN ASPART [NOVOLOG] 3 ML PEN SC SCH ×2 (17:31→21:00)
--- NOTE | 2016-03-06 17:56 | CONS ---
Date/Time of Note Date/Time of Note DATE: 03/06/16 TIME: 17:55 Assessment/Plan Assessment/Plan Additional Assessment/Plan Acute exacerbation of congestive heart failure, Cardiomyopathy, hypertension, Respiratory failure, Anemia, Diabetes and dyslipidemia Avoid Volume Overload Restrict fluids 1500cc/ 24 hours Continue Imdur Continue Nifedipine and Metoprolol Continue Benazepril Continue Insulin Continue Lipitor Continue Antibiotics Consultation Date/Type/Reason Admit Date/Time Mar 03, 2016 at 17:24 Initial Consult Date Type of Consultation: Cardiology Referring Provider: GILLIAN GRIFFITH MD Exam/Review of Systems Vital Signs Vitals Vital Signs Date Time Temp Pulse Resp B/P Pulse Ox O2 Delivery O2 Flow Rate FiO2 03/06/16 17:02 4.0 03/06/16 16:57 97.5 87 18 137/68 98 03/06/16 13:42 Nasal Cannula Intake and Output 03/05/16 03/05/16 03/06/16 15:00 23:00 07:00 Intake Total 575 ml 1425 ml Output Total 400 ml 600 ml Balance 175 ml 825 ml Exam Head: atraumatic, normocephalic Eyes: EOMI, nl conjunctiva Neck: non-tender, supple Respiratory: clear to auscultation Cardiovascular: regular rate and rhythm Gastrointestinal: nl liver, spleen, non-tender, soft Extremities: normal pulses Results Result Diagram: 03/05/16 0717 03/05/16 0717 Results 24 hrs Laboratory Tests Test 03/05/16 21:04 03/06/16 13:28 03/06/16 17:28 Bedside Glucose 329 H 324 H 230 H Medications Medications Current Medications Ascorbic Acid (Vitamin C) 500 mg DAILY PO Last administered on 03/06/16at 08:51 ; Admin Dose 500 MG; Start 03/04/16 at 09:00 Aspirin (Halfprin) 81 mg DAILY PO Last administered on 03/06/16at 08:52; Admin Dose 81 MG; Start 03/04/16 at 09:00 Atorvastatin Calcium (Lipitor) 10 mg QHS PO Last administered on 03/05/16at 20: 43; Admin Dose 10 MG; Start 03/03/16 at 21:00 Benazepril HCl (Lotensin) 5 mg Q12 PO Last administered on 03/06/16at 08:52; Admin Dose 5 MG; Start 03/03/16 at 21:00 Docusate Sodium (Colace) 100 mg BID PO Last administered on 03/06/16 08:52; Admin Dose 100 MG; Start 03/03/16 at 21:00 Finasteride (Proscar) 5 mg DAILY PO Last administered on 03/06/16 08:53; Admin Dose 5 MG; Start 03/04/16 at 09:00 Gabapentin (Neurontin) 100 mg TID PO Last administered on 03/06/16 13:10; Admin Dose 100 MG; Start 03/03/16 at 21:00 Ipratropium [place] (Atrovent Hfa) 2 puff Q6 INH Last administered on 12:00; Admin Dose 2 PUFF; Start 03/04/16 at 00:00 Isosorbide Dinitrate (Isordil) 20 mg TID PO Last administered on 03/06/16 13: 10; Admin Dose 20 MG; Start 03/03/16 at 21:00 Lactobacillus Acidoph/Bulgaricus (Floranex) 1 tab BID PO Last administered on 03/06/16 08:52; Admin Dose 1 TAB; Start 03/03/16 at 22:00 Lactulose (Enulose) 20 gm DAILY PO Last administered on 03/05/16 09:13; Admin Dose 20 GM; Start 03/04/16 at 09:00 Al Hydrox/Mg Hydrox/Simethicone (Mag-Al Plus) 30 ml Q6H PRN PO DISTENSION/GAS/ BLOATING; Start 03/03/16 at 20:00 Multivitamins Therapeutic (Theragran) 1 tab DAILY PO Last administered on 03/06 08:53; Admin Dose 1 TAB; Start 03/04/16 at 09:00 Nifedipine (Procardia Xl) 30 mg BID PO Last administered on 03/06/16 08:52; Admin Dose 30 MG; Start 03/03/16 at 21:00 Nitroglycerin (Nitroglycerin (Sl Tab) 0.4 Mg) 1 tab [id number] PRN SL CHEST PAIN ; Start 03/03/16 at 20:00 Polyethylene Glycol (Miralax) 17 gm DAILY PO Last administered on 03/06/16 08 :54; Admin Dose 17 GM; Start 03/04/16 at 09:00 Potassium Chloride (Klor-Con 20) 20 meq DAILY PO Last administered on at 08:54; Admin Dose 20 MEQ; Start 03/04/16 at 09:00 Quetiapine Fumarate (Seroquel) 25 mg Q8 PO Last administered on 03/06/16at 13: 10; Admin Dose 25 MG; Start 03/03/16 at 22:00 Salmeterol Xinafoate/ Fluticasone (Advair 250/50 Diskus) 1 inh BID INH Last administered on 03/06/16at 08:54; Admin Dose 1 INH; Start 03/03/16 at 22:00 Zolpidem Tartrate (Ambien) 5 mg QHS PRN PO INSOMNIA Last administered on at 22:37; Admin Dose 5 MG; Start 03/03/16 at 20:00 Ondansetron HCl (Zofran Inj) 4 mg Q6H PRN IV NAUSEA AND/OR VOMITING; Start at 20:00 Methylprednisolone Sodium Succinate (Solu-Medrol) 40 mg Q12 IV Last administered on 03/06/16at 08:54; Admin Dose 40 MG; Start 03/03/16 at 21:00 Insulin Glargine (Lantus) 8 unit HS SC Last administered on 03/05/16at 21:08; Admin Dose 8 UNIT; Start 03/03/16 at 22:00 Diagnostic Test (Pha) (Accucheck) 1 ea 02 XX ; Start 03/04/16 at 02:00 Pantoprazole (Protonix Tab) 40 mg DAILY@06 PO Last administered on 03/06/16at 05:02; Admin Dose 40 MG; Start 03/04/16 at 06:00 Miscellaneous Information 1 ea NOTE XX ; Start 03/03/16 at 21:00 Glucose (Glutose) 15 gm Q15M PRN PO DECREASED GLUCOSE; Start 03/03/16 at 21:00 Glucose (Glutose) 22.5 gm Q15M PRN PO DECREASED GLUCOSE; Start 03/03/16 at 21: 00 Dextrose (D50w Syringe) 25 ml Q15M PRN IV DECREASED GLUCOSE; Start 03/03/16 at 21:00 Dextrose (D50w Syringe) 50 ml Q15M PRN IV DECREASED GLUCOSE; Start 03/03/16 at 21:00 Glucagon (Glucagen) 1 mg Q15M PRN IM DECREASED GLUCOSE; Start 03/03/16 at 21: 00 Glucose 15 gm 15 gm Q15M PRN BUCCAL DECREASED GLUCOSE; Start 03/03/16 at 21:00 Dextrose/Sodium Chloride 1,000 ml @ 75 mls/hr [id number] IV Last administered on 03/05/16at 20:41; Admin Dose 75 MLS/HR; Start 03/04/16 at 12:30 Levofloxacin/ Dextrose (Levaquin 500mg/ D5W 100 ml (Pmx)) 100 ml @ 100 mls/hr Q24H IVPB Last administered on 03/06/16 13:10; Admin Dose 100 MLS/HR; Start 03/04/16 at 14:00 Metoprolol Tartrate (Lopressor) 50 mg BID PO Last administered on 03/06/16 08 :53; Admin Dose 50 MG; Start 03/04/16 at 21:00 Enoxaparin Sodium (Lovenox) 40 mg DAILY SC Last administered on 03/06/16 08: 55; Admin Dose 40 MG; Start 03/05/16 at 09:00 Acetaminophen/ Hydrocodone Bitart ([place] (5/325)) 1 tab Q4 PRN PO PRN Last administered on 03/06/16at 17:47; Admin Dose 1 TAB; Start 03/05/16 at 21:00 Meclizine HCl (Antivert) 25 mg Q6 PO Last administered on 03/06/16at 17:47; Admin Dose 25 MG; Start 03/05/16 at 20:30 Diagnostic Test (Pha) (Accucheck) 1 ea 02 XX ; Start 03/07/16 at 02:00 TG HUI M.D. Mar 06, 2016 17:56
[2016-03-06] MEDS ORDERED: INSULIN ASPART [NOVOLOG] 3 ML PEN SC SCH (18:05)
[2016-03-06] MEDS: ACETAMINOPHEN 325 MG TAB PO PRN (21:11)
[2016-03-06] MEDS: ATORVASTATIN 10 MG TAB PO SCH (21:11)
[2016-03-06] MEDS: INSULIN GLARGINE [LANtus] 3 ML PEN SC SCH (21:39)
[2016-03-06] MEDS: ZOLPIDEM 5 MG TAB PO PRN (23:15)
[2016-03-07] VITALS (11 sets, daily range): BP systolic 129–154; BP diastolic 67–80; PULSE 75–90; RESP 16–18
[2016-03-07] MEDS: ACCUCHECK XX SCH ×2 (00:14→00:46)
[2016-03-07] MEDS: MECLIZINE 25 MG TAB PO SCH (05:22)
[2016-03-07] MEDS: PANTOPRAZOLE (EC) 40 MG TAB PO SCH (05:22)
[2016-03-07] MEDS: QUETIAPINE 25 MG TAB PO SCH ×3 (05:22→21:28)
[2016-03-07] MEDS: HYDROCODONE/APAP (5/325) TAB PO PRN ×3 (05:23→17:40)
[2016-03-07] MEDS: IPRATROPIUM (HFA) 12.9 GM INHALER INH SCH ×4 (05:24→17:39)
[2016-03-07] MEDS: DEXTROSE 5%-0.45% NACL 1,000 ML IV SCH (07:10)
[2016-03-07 07:56] LABS: HEMOGLOBIN 10.2 g/dl (14.0-18.0); MEAN CORPUSCULAR HEMOGLOBIN 29.7 pg (29.0-33.0); MEAN CORPUSCULAR VOLUME 89.8 fl (82.0-101.0); MEAN PLATELET VOLUME 8.4 fl (7.4-10.4); PLATELET COUNT 421 10^3/UL (140-440); RED BLOOD COUNT 3.45 10^6/ul (4.70-6.10); RED CELL DISTRIBUTION WIDTH 17.3 % (11.5-14.5); UNCORRECTED WBC 19.5 10^3/ul (4.8-10.8); WHITE BLOOD COUNT 19.5 10^3/ul (4.8-10.8)
[2016-03-07 08:02] LABS: POTASSIUM 4.5 mmol/L (3.5-5.1)
[2016-03-07 08:05] LABS: CREATININE 0.65 mg/dl (0.61-1.24)
[2016-03-07 08:06] LABS: CALCIUM 8.2 mg/dl (8.4-10.2)
[2016-03-07 08:15] LABS: CONDITION 1; LH ANALYZER COMMENTS 1; SUSPECT 1
[2016-03-07] MEDS: DOCUSATE SODIUM 100 MG CAP PO SCH ×3 (09:00→21:27)
[2016-03-07] MEDS: POLYETHYLENE GLYCOL 17 GM PACKET PO SCH ×2 (09:00→09:17)
[2016-03-07] MEDS: LACTULOSE 30ML CUP PO SCH ×2 (09:00→09:17)
[2016-03-07] MEDS: MULTIVITAMINS THERAPEUTIC TAB PO SCH (09:15)
[2016-03-07] MEDS: LACTOBACILLUS CHEW TAB PO SCH ×2 (09:15→21:27)
[2016-03-07] MEDS: ISOSORBIDE DINITRATE 20 MG TAB PO SCH ×3 (09:15→21:28)
[2016-03-07] MEDS: ASPIRIN (EC) 81 MG TAB PO SCH (09:15)
[2016-03-07] MEDS: ASCORBIC ACID 500 MG TAB PO SCH (09:15)
[2016-03-07] MEDS: FINASTERIDE 5 MG TAB PO SCH (09:16)
[2016-03-07] MEDS: POTASSIUM CHLORIDE (SR) 20 MEQ TAB PO SCH (09:16)
[2016-03-07] MEDS: NIFEdipine (XL) 30 MG TAB PO SCH ×2 (09:16→21:30)
[2016-03-07] MEDS: METOPROLOL 50 MG TAB PO SCH ×2 (09:16→21:29)
[2016-03-07] MEDS: BENAZEPRIL 5 MG TAB PO SCH ×2 (09:16→21:30)
[2016-03-07] MEDS: GABAPENTIN 100 MG CAP PO SCH ×3 (09:17→21:28)
[2016-03-07] MEDS: METHYLPREDNISOLONE 40 MG INJ IV SCH ×2 (09:17→21:30)
[2016-03-07] MEDS: SALMETEROL/FLUTICASONE 250/50 INHA INH SCH ×2 (09:17→21:30)
[2016-03-07] MEDS: ENOXAPARIN 40 MG/0.4 ML SYG SC SCH (09:19)
[2016-03-07] MEDS: INSULIN ASPART [NOVOLOG] 3 ML PEN SC SCH ×4 (09:21→21:33)
[2016-03-07] MEDS: ALBUTEROL/IPRATROPIUM (NEB) 3 ML AMP HHN SCH ×4 (09:38→20:16)
[2016-03-07 10:45] LABS: MONOCYTE # 0.6 10^3/ul (0.3-0.9); NEUTROPHIL # 17.6 10^3/ul (1.6-7.5)
[2016-03-07] MEDS: MECLIZINE 12.5 MG TAB PO SCH ×3 (13:16→21:29)
[2016-03-07] MEDS: LEVOFLOXACIN 500MG/D5W (PMX) 100 ML IVPB SCH (13:18)
--- NOTE | 2016-03-07 16:06 | CONS ---
Date/Time of Note Date/Time of Note DATE: 03/07/16 TIME: 16:05 Assessment/Plan Assessment/Plan Additional Assessment/Plan Acute exacerbation of congestive heart failure, Cardiomyopathy, hypertension, Respiratory failure, Anemia, Diabetes and dyslipidemia Avoid Volume Overload Restrict fluids 1500cc/ 24 hours Continue Imdur Continue Nifedipine and Metoprolol Continue Benazepril Continue Insulin Continue Lipitor Continue Antibiotics Consultation Date/Type/Reason Admit Date/Time Mar 03, 2016 at 17:24 Type of Consultation: Cardiology Referring Provider: GILLIAN GRIFFITH MD Exam/Review of Systems Vital Signs Vitals Vital Signs Date Time Temp Pulse Resp B/P Pulse Ox O2 Delivery O2 Flow Rate FiO2 03/07/16 15:50 98.0 82 18 146/68 98 03/07/16 09:41 2.0 03/07/16 08:15 Nasal Cannula Intake and Output 03/06/16 03/06/16 03/07/16 15:00 23:00 07:00 Intake Total 750 ml 1450 ml Output Total 600 ml 800 ml Balance 150 ml 650 ml Exam Head: atraumatic, normocephalic Eyes: EOMI, nl conjunctiva Neck: non-tender, supple Respiratory: clear to auscultation Cardiovascular: regular rate and rhythm Gastrointestinal: nl liver, spleen, non-tender, soft Extremities: normal pulses Results Result Diagram: 03/07/16 0622 03/07/16 0622 Results 24 hrs Laboratory Tests Test 03/06/16 17:28 03/06/16 21:06 03/07/16 06:22 03/07/16 08:19 Bedside Glucose 230 H 176 257 H Anion Gap 13 Basophils # Basophils % Blood Morphology Comment Blood Urea Nitrogen 20 Calcium Level 8.2 L Carbon Dioxide Level 36 H Chloride Level 92 L Creatinine 0.65 Differential Comment MANUAL DIFF Eosinophils # Eosinophils % Glucose Level 275 H Hematocrit 31.0 L Hemoglobin 10.2 L Lymphocytes # 1.0 Lymphocytes % 5.0 L Mean Corpuscular Hemoglobin 29.7 Mean Corpuscular Hemoglobin Concent 33.0 Mean Corpuscular Volume 89.8 Mean Platelet Volume 8.4 Metamyelocytes # 0.4 Metamyelocytes % 2.0 H Monocytes # 0.6 Monocytes % 3.0 Neutrophils # 17.6 H Neutrophils % 90.0 H Nucleated Red Blood Cells # Nucleated Red Blood Cells % Platelet Count 421 Potassium Level 4.5 Red Blood Count 3.45 L Red Cell Distribution Width 17.3 H Sodium Level 136 White Blood Count 19.5 #H Test 03/07/16 12:00 Bedside Glucose 238 H Medications Medications Current Medications Ascorbic Acid (Vitamin C) 500 mg DAILY PO Last administered on 03/07/16 09:15 ; Admin Dose 500 MG; Start 03/04/16 at 09:00 Aspirin (Halfprin) 81 mg DAILY PO Last administered on 03/07/16 09:15; Admin Dose 81 MG; Start 03/04/16 at 09:00 Atorvastatin Calcium (Lipitor) 10 mg QHS PO Last administered on 03/06/16 21: 11; Admin Dose 10 MG; Start 03/03/16 at 21:00 Benazepril HCl (Lotensin) 5 mg Q12 PO Last administered on 03/07/16 09:16; Admin Dose 5 MG; Start 03/03/16 at 21:00 Docusate Sodium (Colace) 100 mg BID PO Last administered on 03/06/16 21:11; Admin Dose 100 MG; Start 03/03/16 at 21:00 Finasteride (Proscar) 5 mg DAILY PO Last administered on 03/07/16 09:16; Admin Dose 5 MG; Start 03/04/16 at 09:00 Gabapentin (Neurontin) 100 mg TID PO Last administered on 03/07/16 13:15; Admin Dose 100 MG; Start 03/03/16 at 21:00 Ipratropium [place] (Atrovent Hfa) 2 puff Q6 INH Last administered on at 12:10; Admin Dose 2 PUFF; Start 03/04/16 at 00:00 Isosorbide Dinitrate (Isordil) 20 mg TID PO Last administered on 03/07/16 13: 15; Admin Dose 20 MG; Start 03/03/16 at 21:00 Lactobacillus Acidoph/Bulgaricus (Floranex) 1 tab BID PO Last administered on 03/07/16 09:15; Admin Dose 1 TAB; Start 03/03/16 at 22:00 Lactulose (Enulose) 20 gm DAILY PO Last administered on 03/05/16 09:13; Admin Dose 20 GM; Start 03/04/16 at 09:00 Al Hydrox/Mg Hydrox/Simethicone (Mag-Al Plus) 30 ml Q6H PRN PO DISTENSION/GAS/ BLOATING; Start 03/03/16 at 20:00 Multivitamins Therapeutic (Theragran) 1 tab DAILY PO Last administered on 03/07 09:15; Admin Dose 1 TAB; Start 03/04/16 at 09:00 Nifedipine (Procardia Xl) 30 mg BID PO Last administered on 03/07/16 09:16; Admin Dose 30 MG; Start 03/03/16 at 21:00 Nitroglycerin (Nitroglycerin (Sl Tab) 0.4 Mg) 1 tab [id number] PRN SL CHEST PAIN ; Start 03/03/16 at 20:00 Polyethylene Glycol (Miralax) 17 gm DAILY PO Last administered on 03/06/16 08 :54; Admin Dose 17 GM; Start 03/04/16 at 09:00 Potassium Chloride (Klor-Con 20) 20 meq DAILY PO Last administered on 09:16; Admin Dose 20 MEQ; Start 03/04/16 at 09:00 Quetiapine Fumarate (Seroquel) 25 mg Q8 PO Last administered on 03/07/16 13: 15; Admin Dose 25 MG; Start 03/03/16 at 22:00 Salmeterol Xinafoate/ Fluticasone (Advair 250/50 Diskus) 1 inh BID INH Last administered on 03/07/16 09:17; Admin Dose 1 INH; Start 03/03/16 at 22:00 Zolpidem Tartrate (Ambien) 5 mg QHS PRN PO INSOMNIA Last administered on 23:15; Admin Dose 5 MG; Start 03/03/16 at 20:00 Ondansetron HCl (Zofran Inj) 4 mg Q6H PRN IV NAUSEA AND/OR VOMITING; Start at 20:00 Methylprednisolone Sodium Succinate (Solu-Medrol) 40 mg Q12 IV Last administered on 03/07/16 09:17; Admin Dose 40 MG; Start 03/03/16 at 21:00 Insulin Glargine (Lantus) 8 unit HS SC Last administered on 03/06/16at 21:39; Admin Dose 8 UNIT; Start 03/03/16 at 22:00 Diagnostic Test (Pha) (Accucheck) 1 ea 02 XX ; Start 03/04/16 at 02:00 Pantoprazole (Protonix Tab) 40 mg DAILY@06 PO Last administered on 03/07/16at 05:22; Admin Dose 40 MG; Start 03/04/16 at 06:00 Miscellaneous Information 1 ea NOTE XX ; Start 03/03/16 at 21:00 Glucose (Glutose) 15 gm Q15M PRN PO DECREASED GLUCOSE; Start 03/03/16 at 21:00 Glucose (Glutose) 22.5 gm Q15M PRN PO DECREASED GLUCOSE; Start 03/03/16 at 21: 00 Dextrose (D50w Syringe) 25 ml Q15M PRN IV DECREASED GLUCOSE; Start 03/03/16 at 21:00 Dextrose (D50w Syringe) 50 ml Q15M PRN IV DECREASED GLUCOSE; Start 03/03/16 at 21:00 Glucagon (Glucagen) 1 mg Q15M PRN IM DECREASED GLUCOSE; Start 03/03/16 at 21: 00 Glucose 15 gm 15 gm Q15M PRN BUCCAL DECREASED GLUCOSE; Start 03/03/16 at 21:00 Dextrose/Sodium Chloride 1,000 ml @ 75 mls/hr [id number] IV Last administered on 03/05/16at 20:41; Admin Dose 75 MLS/HR; Start 03/04/16 at 12:30 Levofloxacin/ Dextrose (Levaquin 500mg/ D5W 100 ml (Pmx)) 100 ml @ 100 mls/hr Q24H IVPB Last administered on 03/07/16at 13:18; Admin Dose 100 MLS/HR; Start 03/04/16 at 14:00 Metoprolol Tartrate (Lopressor) 50 mg BID PO Last administered on 03/07/16at 09 :16; Admin Dose 50 MG; Start 03/04/16 at 21:00 Enoxaparin Sodium (Lovenox) 40 mg DAILY SC Last administered on 03/07/16at 09: 19; Admin Dose 40 MG; Start 03/05/16 at 09:00 Acetaminophen/ Hydrocodone Bitart ([place] (5/325)) 1 tab Q4 PRN PO PRN Last administered on 03/07/16at 11:52; Admin Dose 1 TAB; Start 03/05/16 at 21:00 Diagnostic Test (Pha) (Accucheck) 1 ea 02 XX ; Start 03/07/16 at 02:00 Meclizine HCl (Antivert) 25 mg Q6 PO Last administered on 03/07/16at 13:16; Admin Dose 25 MG; Start 03/07/16 at 13:14 TG HUI M.D. Mar 07, 2016 16:06
--- NOTE | 2016-03-07 16:52 | PN ---
Date/Time of Note Date/Time of Note DATE: 03/07/16 TIME: 16:52 Assessment/Plan VTE Prophylaxis VTE Prophylaxis Intervention: other Lines/Catheters IV Catheter Type (from Nrs): Saline Lock Urinary Cath still in place: Yes Assessment/Plan Assessment/Plan Persistent leukocytosis - ID consult appreciated- Dr Munoz 1. Acute hypercapnic respiratory failure - stable on o2 by NC 2. Chronic obstructive pulmonary disease with acute exacerbation - Continue bronchodilators. 3. Dehydration - monitor 4. Hypertension. - stable. 5. Diabetes mellitus type 2. - monitor blood sugar 6. Sick sinus syndrome status post pacemaker - per cardiology 7. Dementia/encephalopathy Subjective 24 Hr Interval Summary Constitutional: requiring O2 Exam/Review of Systems Vital Signs Vitals Vital Signs Date Time Temp Pulse Resp B/P Pulse Ox O2 Delivery O2 Flow Rate FiO2 03/07/16 16:18 85 03/07/16 15:50 98.0 18 146/68 98 03/07/16 09:41 2.0 03/07/16 08:15 Nasal Cannula Intake and Output 03/06/16 03/06/16 03/07/16 15:00 23:00 07:00 Intake Total 750 ml 1450 ml Output Total 600 ml 800 ml Balance 150 ml 650 ml Exam Constitutional: alert Psych: nl mood/affect ENMT: nl external ears & nose Neck: non-tender Respiratory: diminished breath sounds Cardiovascular: nl pulses Gastrointestinal: non-tender, soft Neurological: confused Results Result Diagram: 03/07/16 0622 03/07/16 0622 Results 24 hrs Laboratory Tests Test 03/06/16 17:28 03/06/16 21:06 03/07/16 06:22 03/07/16 08:19 Bedside Glucose 230 H 176 257 H Anion Gap 13 Basophils # Basophils % Blood Morphology Comment Blood Urea Nitrogen 20 Calcium Level 8.2 L Carbon Dioxide Level 36 H Chloride Level 92 L Creatinine 0.65 Differential Comment MANUAL DIFF Eosinophils # Eosinophils % Glucose Level 275 H Hematocrit 31.0 L Hemoglobin 10.2 L Lymphocytes # 1.0 Lymphocytes % 5.0 L Mean Corpuscular Hemoglobin 29.7 Mean Corpuscular Hemoglobin Concent 33.0 Mean Corpuscular Volume 89.8 Mean Platelet Volume 8.4 Metamyelocytes # 0.4 Metamyelocytes % 2.0 H Monocytes # 0.6 Monocytes % 3.0 Neutrophils # 17.6 H Neutrophils % 90.0 H Nucleated Red Blood Cells # Nucleated Red Blood Cells % Platelet Count 421 Potassium Level 4.5 Red Blood Count 3.45 L Red Cell Distribution Width 17.3 H Sodium Level 136 White Blood Count 19.5 #H Test 03/07/16 12:00 Bedside Glucose 238 H Medications Medications Current Medications Ascorbic Acid (Vitamin C) 500 mg DAILY PO Last administered on 03/07/16 09:15 ; Admin Dose 500 MG; Start 03/04/16 at 09:00 Aspirin (Halfprin) 81 mg DAILY PO Last administered on 03/07/16 09:15; Admin Dose 81 MG; Start 03/04/16 at 09:00 Atorvastatin Calcium (Lipitor) 10 mg QHS PO Last administered on 03/06/16 21: 11; Admin Dose 10 MG; Start 03/03/16 at 21:00 Benazepril HCl (Lotensin) 5 mg Q12 PO Last administered on 03/07/16 09:16; Admin Dose 5 MG; Start 03/03/16 at 21:00 Docusate Sodium (Colace) 100 mg BID PO Last administered on 03/06/16 21:11; Admin Dose 100 MG; Start 03/03/16 at 21:00 Finasteride (Proscar) 5 mg DAILY PO Last administered on 03/07/16 09:16; Admin Dose 5 MG; Start 03/04/16 at 09:00 Gabapentin (Neurontin) 100 mg TID PO Last administered on 03/07/16 13:15; Admin Dose 100 MG; Start 03/03/16 at 21:00 Ipratropium [place] (Atrovent Hfa) 2 puff Q6 INH Last administered on at 12:10; Admin Dose 2 PUFF; Start 03/04/16 at 00:00 Isosorbide Dinitrate (Isordil) 20 mg TID PO Last administered on 03/07/16 13: 15; Admin Dose 20 MG; Start 03/03/16 at 21:00 Lactobacillus Acidoph/Bulgaricus (Floranex) 1 tab BID PO Last administered on 03/07/16 09:15; Admin Dose 1 TAB; Start 03/03/16 at 22:00 Lactulose (Enulose) 20 gm DAILY PO Last administered on 03/05/16 09:13; Admin Dose 20 GM; Start 03/04/16 at 09:00 Al Hydrox/Mg Hydrox/Simethicone (Mag-Al Plus) 30 ml Q6H PRN PO DISTENSION/GAS/ BLOATING; Start 03/03/16 at 20:00 Multivitamins Therapeutic (Theragran) 1 tab DAILY PO Last administered on 03/07 09:15; Admin Dose 1 TAB; Start 03/04/16 at 09:00 Nifedipine (Procardia Xl) 30 mg BID PO Last administered on 03/07/16 09:16; Admin Dose 30 MG; Start 03/03/16 at 21:00 Nitroglycerin (Nitroglycerin (Sl Tab) 0.4 Mg) 1 tab [id number] PRN SL CHEST PAIN ; Start 03/03/16 at 20:00 Polyethylene Glycol (Miralax) 17 gm DAILY PO Last administered on 03/06/16 08 :54; Admin Dose 17 GM; Start 03/04/16 at 09:00 Potassium Chloride (Klor-Con 20) 20 meq DAILY PO Last administered on 09:16; Admin Dose 20 MEQ; Start 03/04/16 at 09:00 Quetiapine Fumarate (Seroquel) 25 mg Q8 PO Last administered on 03/07/16 13: 15; Admin Dose 25 MG; Start 03/03/16 at 22:00 Salmeterol Xinafoate/ Fluticasone (Advair 250/50 Diskus) 1 inh BID INH Last administered on 03/07/16 09:17; Admin Dose 1 INH; Start 03/03/16 at 22:00 Zolpidem Tartrate (Ambien) 5 mg QHS PRN PO INSOMNIA Last administered on 23:15; Admin Dose 5 MG; Start 03/03/16 at 20:00 Ondansetron HCl (Zofran Inj) 4 mg Q6H PRN IV NAUSEA AND/OR VOMITING; Start at 20:00 Methylprednisolone Sodium Succinate (Solu-Medrol) 40 mg Q12 IV Last administered on 03/07/16 09:17; Admin Dose 40 MG; Start 03/03/16 at 21:00 Insulin Glargine (Lantus) 8 unit HS SC Last administered on 03/06/16at 21:39; Admin Dose 8 UNIT; Start 03/03/16 at 22:00 Diagnostic Test (Pha) (Accucheck) 1 ea 02 XX ; Start 03/04/16 at 02:00 Pantoprazole (Protonix Tab) 40 mg DAILY@06 PO Last administered on 03/07/16at 05:22; Admin Dose 40 MG; Start 03/04/16 at 06:00 Miscellaneous Information 1 ea NOTE XX ; Start 03/03/16 at 21:00 Glucose (Glutose) 15 gm Q15M PRN PO DECREASED GLUCOSE; Start 03/03/16 at 21:00 Glucose (Glutose) 22.5 gm Q15M PRN PO DECREASED GLUCOSE; Start 03/03/16 at 21: 00 Dextrose (D50w Syringe) 25 ml Q15M PRN IV DECREASED GLUCOSE; Start 03/03/16 at 21:00 Dextrose (D50w Syringe) 50 ml Q15M PRN IV DECREASED GLUCOSE; Start 03/03/16 at 21:00 Glucagon (Glucagen) 1 mg Q15M PRN IM DECREASED GLUCOSE; Start 03/03/16 at 21: 00 Glucose 15 gm 15 gm Q15M PRN BUCCAL DECREASED GLUCOSE; Start 03/03/16 at 21:00 Dextrose/Sodium Chloride 1,000 ml @ 75 mls/hr [id number] IV Last administered on 03/05/16at 20:41; Admin Dose 75 MLS/HR; Start 03/04/16 at 12:30 Levofloxacin/ Dextrose (Levaquin 500mg/ D5W 100 ml (Pmx)) 100 ml @ 100 mls/hr Q24H IVPB Last administered on 03/07/16at 13:18; Admin Dose 100 MLS/HR; Start 03/04/16 at 14:00 Metoprolol Tartrate (Lopressor) 50 mg BID PO Last administered on 03/07/16at 09 :16; Admin Dose 50 MG; Start 03/04/16 at 21:00 Enoxaparin Sodium (Lovenox) 40 mg DAILY SC Last administered on 03/07/16at 09: 19; Admin Dose 40 MG; Start 03/05/16 at 09:00 Acetaminophen/ Hydrocodone Bitart ([place] (5/325)) 1 tab Q4 PRN PO PRN Last administered on 03/07/16at 11:52; Admin Dose 1 TAB; Start 03/05/16 at 21:00 Diagnostic Test (Pha) (Accucheck) 1 ea XX ; Start 03/07/16 at 02:00 Meclizine HCl (Antivert) 25 mg Q6 PO Last administered on 03/07/16at 13:16; Admin Dose 25 MG; Start 03/07/16 at 13:14 SOCO SIMS Mar 07, 2016 16:52
[2016-03-07] MEDS ORDERED: MECLIZINE 12.5 MG TAB PO SCH (18:00)
[2016-03-07] MEDS: ATORVASTATIN 10 MG TAB PO SCH (21:28)
[2016-03-07] MEDS: ZOLPIDEM 5 MG TAB PO PRN (21:29)
[2016-03-07] MEDS: INSULIN GLARGINE [LANtus] 3 ML PEN SC SCH (21:32)
[2016-03-08] VITALS (12 sets, daily range): BP systolic 134–154; BP diastolic 69–77; PULSE 69–88; RESP 18–23
[2016-03-08] MEDS: ACCUCHECK XX SCH ×2 (02:00)
[2016-03-08] MEDS: PANTOPRAZOLE (EC) 40 MG TAB PO SCH (05:32)
[2016-03-08] MEDS: QUETIAPINE 25 MG TAB PO SCH ×4 (05:32→21:05)
[2016-03-08] MEDS: MECLIZINE 12.5 MG TAB PO SCH ×3 (05:32→17:44)
[2016-03-08] MEDS: IPRATROPIUM (HFA) 12.9 GM INHALER INH SCH ×4 (05:37→18:00)
[2016-03-08 07:33] LABS: BASOPHIL # 0.1 10^3/ul (0.0-0.1); BASOPHILS % 0.5 % (0.0-2.0); HEMATOCRIT 29.3 % (42.0-52.0); HEMOGLOBIN 9.8 g/dl (14.0-18.0); LYMPHOCYTES # 1.1 10^3/ul (0.8-2.9); LYMPHOCYTES % 6.5 % (15.0-51.0); MEAN CORPUSCULAR HEMOGLOBIN 29.6 pg (29.0-33.0); MEAN CORPUSCULAR HGB CONC 33.5 g/dl (32.0-37.0); MEAN CORPUSCULAR VOLUME 88.3 fl (82.0-101.0); MEAN PLATELET VOLUME 8.1 fl (7.4-10.4); MONOCYTE # 0.7 10^3/ul (0.3-0.9); MONOCYTES % 4.5 % (0.0-11.0); NEUTROPHIL # 14.2 10^3/ul (1.6-7.5); NEUTROPHILS % 88.5 % (39.0-77.0); PLATELET COUNT 435 10^3/UL (140-440); RED BLOOD COUNT 3.32 10^6/ul (4.70-6.10); RED CELL DISTRIBUTION WIDTH 16.9 % (11.5-14.5); UNCORRECTED WBC 16.1 10^3/ul (4.8-10.8); WHITE BLOOD COUNT 16.1 10^3/ul (4.8-10.8)
[2016-03-08 07:45] LABS: CONDITION 1; LH ANALYZER COMMENTS 1; SUSPECT 1
[2016-03-08 07:46] LABS: POTASSIUM 4.3 mmol/L (3.5-5.1)
[2016-03-08 07:48] LABS: CREATININE 0.5 mg/dl (0.61-1.24)
[2016-03-08 07:49] LABS: CALCIUM 8.3 mg/dl (8.4-10.2)
[2016-03-08] MEDS: LACTOBACILLUS CHEW TAB PO SCH ×2 (09:00→21:06)
[2016-03-08] MEDS: LACTULOSE 30ML CUP PO SCH (09:00)
[2016-03-08] MEDS: ASCORBIC ACID 500 MG TAB PO SCH (09:02)
[2016-03-08] MEDS: METHYLPREDNISOLONE 40 MG INJ IV SCH ×2 (09:02→21:03)
[2016-03-08] MEDS: POLYETHYLENE GLYCOL 17 GM PACKET PO SCH (09:02)
[2016-03-08] MEDS: SALMETEROL/FLUTICASONE 250/50 INHA INH SCH ×2 (09:02→21:03)
[2016-03-08] MEDS: MULTIVITAMINS THERAPEUTIC TAB PO SCH (09:02)
[2016-03-08] MEDS: DOCUSATE SODIUM 100 MG CAP PO SCH ×2 (09:03→21:05)
[2016-03-08] MEDS: ASPIRIN (EC) 81 MG TAB PO SCH (09:03)
[2016-03-08] MEDS: POTASSIUM CHLORIDE (SR) 20 MEQ TAB PO SCH (09:03)
[2016-03-08] MEDS: METOPROLOL 50 MG TAB PO SCH ×2 (09:03→21:05)
[2016-03-08] MEDS: BENAZEPRIL 5 MG TAB PO SCH ×2 (09:03→21:05)
[2016-03-08] MEDS: NIFEdipine (XL) 30 MG TAB PO SCH ×2 (09:04→21:04)
[2016-03-08] MEDS: ISOSORBIDE DINITRATE 20 MG TAB PO SCH ×3 (09:04→21:06)
[2016-03-08] MEDS: FINASTERIDE 5 MG TAB PO SCH (09:04)
[2016-03-08] MEDS: GABAPENTIN 100 MG CAP PO SCH ×3 (09:04→21:03)
[2016-03-08] MEDS: ENOXAPARIN 40 MG/0.4 ML SYG SC SCH (09:12)
[2016-03-08] MEDS: INSULIN ASPART [NOVOLOG] 3 ML PEN SC SCH ×4 (09:13→21:08)
[2016-03-08] MEDS: ALBUTEROL/IPRATROPIUM (NEB) 3 ML AMP HHN SCH ×4 (09:22→21:35)
[2016-03-08] MEDS: HYDROCODONE/APAP (5/325) TAB PO PRN (11:32)
--- NOTE | 2016-03-08 13:56 | PQ ---
Date/Time of Note Date/Time of Note DATE: 03/08/16 TIME: 13:51 Physician Query Documentation Clarification Dear , A review of the medical record found a need for documentation clarification. progress note - "Acute exacerbation of congestive heart failure" Echo = LVEF = 45% ----hx per ER BNp = 2790 Please clarify( if known ) the type of CHF. To facilitate accurate and complete coding, please jose ( x ) the suspected diagnosis that apply: ( ) Acute Systolic (Reduced EF) Heart Failure ( ICD10 I50.21 ) ( ) Acute Diastolic (Preserved EF) Heart Failure ( ICD10 I50.31 ) ( ) Acute Combined Systolic & Diastolic Heart Failure ( ICD10 I50.41 ) ( ) Chronic Systolic (Reduced EF) Heart Failure ( ICD10 I50.22 ) ( ) Chronic Diastolic (Preserved EF) Heart Failure ( ICD10 I50.32 ) ( ) Chronic Combined Systolic & Diastolic Heart Failure ( ICD10 I50.42 ) ( ) Acute on Chronic Systolic (Reduced EF) Heart Failure ( ICD10 I50.23 ) ( ) Acute on Chronic Diastolic (Preserved EF) Heart Failure ( ICD10 I50.33 ) ( ) Acute on Chronic Combined Systolic & Diastolic Heart Failure ( ICD10 I50.43 ) Please provide your response by clicking edit document, making your choice ( x ), click ok and finally click sign. You may also document your response on your progress notes. Thank you for your time. Fermin Sullivan RN, BSN, CCS, CCDS Clinical [employer] Information Management, [employer] and Coding Services [phone] Room # [address]~ [id number] FERMIN SULLIVAN Mar 08, 2016 13:56
[2016-03-08] MEDS: LEVOFLOXACIN 500MG/D5W (PMX) 100 ML IVPB SCH (13:59)
--- NOTE | 2016-03-08 15:21 | CONS ---
Date/Time of Note Date/Time of Note DATE: 03/08/16 TIME: 15:18 Assessment/Plan Assessment/Plan Chief Complaint/Hosp Course IMPRESSION: 1. Shortness of breath, assess for congestive heart failure. 2. Permanent pacemaker function. 3. Hypertension, under reasonable control on multiple oral antihypertensives. 4. Hypercapnic respiratory distress/chronic obstructive pulmonary disease exacerbation. 5. History of cardiomyopathy with mildly depressed left ventricular ejection fraction by most recent echo, February 2016. 6. Hypokalemia. 7. Anemia. 8. Leukocytosis. Recc: -tele -serial ecg's -Continue benazepril/procardia/BB/isordil and follow-up reasonbable BP -Continue bronchodilators/steroids -Follow volume status closely Problems: Consultation Date/Type/Reason Admit Date/Time Mar 03, 2016 at 17:24 Initial Consult Date 03/03/2016 Type of Consultation: Cardiology Reason for Consultation PPM Referring Provider: GILLIAN GRIFFITH MD Exam/Review of Systems Vital Signs Vitals Vital Signs Date Time Temp Pulse Resp B/P Pulse Ox O2 Delivery O2 Flow Rate FiO2 03/08/16 14:11 18 03/08/16 12:36 81 03/08/16 12:21 99.3 143/77 96 03/08/16 09:24 Nasal Cannula 3.0 Intake and Output 03/07/16 03/07/16 03/08/16 15:00 23:00 07:00 Intake Total 900 ml 400 ml Output Total 1000 ml 700 ml Balance -100 ml -300 ml Exam Review of Systems: CONSTITUTIONAL: No fevers, chills. PULMONARY: moderate sob CARDIOVASCULAR: No chest pain/palpitations GASTROINTESTINAL: No nausea/vomiting. GENITOURINARY: No hematuria/dysuria. MUSCULOSKELETAL: No myagias/arthalgias. PSYCHIATRIC: The patient denies depression. NEUROLOGIC: confusion Constitutional: alert Psych: no complaints Head: normocephalic ENMT: mucosa pink and moist Neck: jvd (9 cm water), supple Respiratory: diminished breath sounds (at bases/B) Cardiovascular: regular rate and rhythm Gastrointestinal: non-tender, soft Musculoskeletal: muscle tone (normal) Extremities: edema (none) Neurological: other (No focal deficits) Results Result Diagram: 03/08/16 0654 03/08/16 0654 Results 24 hrs Laboratory Tests Test 03/07/16 17:37 03/07/16 20:36 03/08/16 05:48 03/08/16 06:54 Bedside Glucose 321 H 258 H 235 H Anion Gap 9 Basophils # 0.1 Basophils % 0.5 Blood Morphology Comment Blood Urea Nitrogen 17 Calcium Level 8.3 L Carbon Dioxide Level 38 H Chloride Level 95 L Creatinine 0.50 L Eosinophils # 0.0 Eosinophils % 0.0 Glucose Level 169 # Hematocrit 29.3 L Hemoglobin 9.8 L Lymphocytes # 1.1 Lymphocytes % 6.5 L Mean Corpuscular Hemoglobin 29.6 Mean Corpuscular Hemoglobin Concent 33.5 Mean Corpuscular Volume 88.3 Mean Platelet Volume 8.1 Monocytes # 0.7 Monocytes % 4.5 Neutrophils # 14.2 H Neutrophils % 88.5 H Nucleated Red Blood Cells # 0.0 Nucleated Red Blood Cells % 0.0 Platelet Count 435 Potassium Level 4.3 Red Blood Count 3.32 L Red Cell Distribution Width 16.9 H Sodium Level 138 White Blood Count 16.1 H Test 03/08/16 08:00 03/08/16 11:34 Bedside Glucose 173 240 H Medications Medications Current Medications Ascorbic Acid (Vitamin C) 500 mg DAILY PO Last administered on 03/08/16 09:02 ; Admin Dose 500 MG; Start 03/04/16 at 09:00 Aspirin (Halfprin) 81 mg DAILY PO Last administered on 03/08/16 09:03; Admin Dose 81 MG; Start 03/04/16 at 09:00 Atorvastatin Calcium (Lipitor) 10 mg QHS PO Last administered on 03/07/16 21: 28; Admin Dose 10 MG; Start 03/03/16 at 21:00 Benazepril HCl (Lotensin) 5 mg Q12 PO Last administered on 03/08/16 09:03; Admin Dose 5 MG; Start 03/03/16 at 21:00 Docusate Sodium (Colace) 100 mg BID PO Last administered on 03/08/16 09:03; Admin Dose 100 MG; Start 03/03/16 at 21:00 Finasteride (Proscar) 5 mg DAILY PO Last administered on 03/08/16 09:04; Admin Dose 5 MG; Start 03/04/16 at 09:00 Gabapentin (Neurontin) 100 mg TID PO Last administered on 12/27/16at 13:59; Admin Dose 100 MG; Start 03/03/16 at 21:00 Ipratropium [place] (Atrovent Hfa) 2 puff Q6 INH Last administered on at 05:37; Admin Dose 2 PUFF; Start 03/04/16 at 00:00 Isosorbide Dinitrate (Isordil) 20 mg TID PO Last administered on 03/08/16at 13: 59; Admin Dose 20 MG; Start 03/03/16 at 21:00 Lactobacillus Acidoph/Bulgaricus (Floranex) 1 tab BID PO Last administered on 03/07/16 21:27; Admin Dose 1 TAB; Start 03/03/16 at 22:00 Lactulose (Enulose) 20 gm DAILY PO Last administered on 03/05/16 09:13; Admin Dose 20 GM; Start 03/04/16 at 09:00 Al Hydrox/Mg Hydrox/Simethicone (Mag-Al Plus) 30 ml Q6H PRN PO DISTENSION/GAS/ BLOATING; Start 03/03/16 at 20:00 Multivitamins Therapeutic (Theragran) 1 tab DAILY PO Last administered on 03/08at 09:02; Admin Dose 1 TAB; Start 03/04/16 at 09:00 Nifedipine (Procardia Xl) 30 mg BID PO Last administered on 03/08/16 09:04; Admin Dose 30 MG; Start 03/03/16 at 21:00 Nitroglycerin (Nitroglycerin (Sl Tab) 0.4 Mg) 1 tab [id number] PRN SL CHEST PAIN ; Start 03/03/16 at 20:00 Polyethylene Glycol (Miralax) 17 gm DAILY PO Last administered on 03/08/16 09 :02; Admin Dose 17 GM; Start 03/04/16 at 09:00 Potassium Chloride (Klor-Con 20) 20 meq DAILY PO Last administered on 09:03; Admin Dose 20 MEQ; Start 03/04/16 at 09:00 Quetiapine Fumarate (Seroquel) 25 mg Q8 PO Last administered on 03/08/16 05: 32; Admin Dose 25 MG; Start 03/03/16 at 22:00 Salmeterol Xinafoate/ Fluticasone (Advair 250/50 Diskus) 1 inh BID INH Last administered on 03/08/16 09:02; Admin Dose 1 INH; Start 03/03/16 at 22:00 Zolpidem Tartrate (Ambien) 5 mg QHS PRN PO INSOMNIA Last administered on 21:29; Admin Dose 5 MG; Start 03/03/16 at 20:00 Ondansetron HCl (Zofran Inj) 4 mg Q6H PRN IV NAUSEA AND/OR VOMITING Last administered on 03/08/16 05:25; Admin Dose 4 MG; Start 03/03/16 at 20:00 Methylprednisolone Sodium Succinate (Solu-Medrol) 40 mg Q12 IV Last administered on 03/08/16 09:02; Admin Dose 40 MG; Start 03/03/16 at 21:00 Insulin Glargine (Lantus) 8 unit HS SC Last administered on 03/07/16 21:32; Admin Dose 8 UNIT; Start 03/03/16 at 22:00 Diagnostic Test (Pha) (Accucheck) 1 ea 02 XX Last administered on 03/08/16at 02 :00; Admin Dose 1 EA; Start 03/04/16 at 02:00 Pantoprazole (Protonix Tab) 40 mg DAILY@06 PO Last administered on 03/08/16 05:32; Admin Dose 40 MG; Start 03/04/16 at 06:00 Miscellaneous Information 1 ea NOTE XX ; Start 03/03/16 at 21:00 Glucose (Glutose) 15 gm Q15M PRN PO DECREASED GLUCOSE; Start 03/03/16 at 21:00 Glucose (Glutose) 22.5 gm Q15M PRN PO DECREASED GLUCOSE; Start 03/03/16 at 21: 00 Dextrose (D50w Syringe) 25 ml Q15M PRN IV DECREASED GLUCOSE; Start 03/03/16 at 21:00 Dextrose (D50w Syringe) 50 ml Q15M PRN IV DECREASED GLUCOSE; Start 03/03/16 at 21:00 Glucagon (Glucagen) 1 mg Q15M PRN IM DECREASED GLUCOSE; Start 03/03/16 at 21: 00 Glucose 15 gm 15 gm Q15M PRN BUCCAL DECREASED GLUCOSE; Start 03/03/16 at 21:00 Levofloxacin/ Dextrose (Levaquin 500mg/ D5W 100 ml (Pmx)) 100 ml @ 100 mls/hr Q24H IVPB Last administered on 03/08/16 13:59; Admin Dose 100 MLS/HR; Start 03/04/16 at 14:00 Metoprolol Tartrate (Lopressor) 50 mg BID PO Last administered on 03/08/16 09 :03; Admin Dose 50 MG; Start 03/04/16 at 21:00 Enoxaparin Sodium (Lovenox) 40 mg DAILY SC Last administered on 03/08/16 09: 12; Admin Dose 40 MG; Start 03/05/16 at 09:00 Acetaminophen/ Hydrocodone Bitart ([place] (5/325)) 1 tab Q4 PRN PO PRN Last administered on 03/08/16 11:32; Admin Dose 1 TAB; Start 03/05/16 at 21:00 Diagnostic Test (Pha) (Accucheck) 1 ea 02 XX Last administered on 03/08/16 02 :00; Admin Dose 1 EA; Start 03/07/16 at 02:00 Meclizine HCl (Antivert) 25 mg Q6 PO Last administered on 03/08/16 11:32; Admin Dose 25 MG; Start 03/07/16 at 13:14 VAISHNAVI BUTTS Mar 08, 2016 15:21
--- NOTE | 2016-03-08 15:35 | PN ---
Date/Time of Note Date/Time of Note DATE: 03/08/16 TIME: 15:34 Assessment/Plan VTE Prophylaxis VTE Prophylaxis Intervention: other Lines/Catheters IV Catheter Type (from Nrs): Saline Lock Urinary Cath still in place: Yes Reason Cath still needed: skin wounds contaminated by urine Assessment/Plan Chief Complaint/Hosp Course 1. Acute hypercapnic respiratory failure - stable on o2 by NC 2. Chronic obstructive pulmonary disease with acute exacerbation - Continue bronchodilators. 3. Dehydration - monitor 4. Hypertension. - stable. 5. Diabetes mellitus type 2. - monitor blood sugar 6. Sick sinus syndrome status post pacemaker - per cardiology 7. Dementia/encephalopathy Problems: Subjective 24 Hr Interval Summary Free Text/Dictation Patient wants to go home Exam/Review of Systems Vital Signs Vitals Vital Signs Date Time Temp Pulse Resp B/P Pulse Ox O2 Delivery O2 Flow Rate FiO2 03/08/16 14:11 18 03/08/16 12:36 81 03/08/16 12:21 99.3 143/77 96 03/08/16 09:24 Nasal Cannula 3.0 Intake and Output 03/07/16 03/07/16 03/08/16 15:00 23:00 07:00 Intake Total 900 ml 400 ml Output Total 1000 ml 700 ml Balance -100 ml -300 ml Exam Constitutional: alert, well developed Neck: supple Respiratory: diminished breath sounds Cardiovascular: regular rate and rhythm Gastrointestinal: non-tender, soft Extremities: normal pulses Results Result Diagram: 03/08/16 0654 03/08/16 0654 Results 24 hrs Laboratory Tests Test 03/07/16 17:37 03/07/16 20:36 03/08/16 05:48 03/08/16 06:54 Bedside Glucose 321 H 258 H 235 H Anion Gap 9 Basophils # 0.1 Basophils % 0.5 Blood Morphology Comment Blood Urea Nitrogen 17 Calcium Level 8.3 L Carbon Dioxide Level 38 H Chloride Level 95 L Creatinine 0.50 L Eosinophils # 0.0 Eosinophils % 0.0 Glucose Level 169 # Hematocrit 29.3 L Hemoglobin 9.8 L Lymphocytes # 1.1 Lymphocytes % 6.5 L Mean Corpuscular Hemoglobin 29.6 Mean Corpuscular Hemoglobin Concent 33.5 Mean Corpuscular Volume 88.3 Mean Platelet Volume 8.1 Monocytes # 0.7 Monocytes % 4.5 Neutrophils # 14.2 H Neutrophils % 88.5 H Nucleated Red Blood Cells # 0.0 Nucleated Red Blood Cells % 0.0 Platelet Count 435 Potassium Level 4.3 Red Blood Count 3.32 L Red Cell Distribution Width 16.9 H Sodium Level 138 White Blood Count 16.1 H Test 03/08/16 08:00 03/08/16 11:34 Bedside Glucose 173 240 H Medications Medications Current Medications Ascorbic Acid (Vitamin C) 500 mg DAILY PO Last administered on 03/08/16 09:02 ; Admin Dose 500 MG; Start 03/04/16 at 09:00 Aspirin (Halfprin) 81 mg DAILY PO Last administered on 03/08/16 09:03; Admin Dose 81 MG; Start 03/04/16 at 09:00 Atorvastatin Calcium (Lipitor) 10 mg QHS PO Last administered on 03/07/16 21: 28; Admin Dose 10 MG; Start 03/03/16 at 21:00 Benazepril HCl (Lotensin) 5 mg Q12 PO Last administered on 03/08/16 09:03; Admin Dose 5 MG; Start 03/03/16 at 21:00 Docusate Sodium (Colace) 100 mg BID PO Last administered on 03/08/16 09:03; Admin Dose 100 MG; Start 03/03/16 at 21:00 Finasteride (Proscar) 5 mg DAILY PO Last administered on 03/08/16 09:04; Admin Dose 5 MG; Start 03/04/16 at 09:00 Gabapentin (Neurontin) 100 mg TID PO Last administered on 03/08/16 13:59; Admin Dose 100 MG; Start 03/03/16 at 21:00 Ipratropium [place] (Atrovent Hfa) 2 puff Q6 INH Last administered on 05:37; Admin Dose 2 PUFF; Start 03/04/16 at 00:00 Isosorbide Dinitrate (Isordil) 20 mg TID PO Last administered on 03/08/16 13: 59; Admin Dose 20 MG; Start 03/03/16 at 21:00 Lactobacillus Acidoph/Bulgaricus (Floranex) 1 tab BID PO Last administered on 03/07/16 21:27; Admin Dose 1 TAB; Start 03/03/16 at 22:00 Lactulose (Enulose) 20 gm DAILY PO Last administered on 03/05/16 09:13; Admin Dose 20 GM; Start 03/04/16 at 09:00 Al Hydrox/Mg Hydrox/Simethicone (Mag-Al Plus) 30 ml Q6H PRN PO DISTENSION/GAS/ BLOATING; Start 03/03/16 at 20:00 Multivitamins Therapeutic (Theragran) 1 tab DAILY PO Last administered on 03/08 09:02; Admin Dose 1 TAB; Start 03/04/16 at 09:00 Nifedipine (Procardia Xl) 30 mg BID PO Last administered on 03/08/16 09:04; Admin Dose 30 MG; Start 03/03/16 at 21:00 Nitroglycerin (Nitroglycerin (Sl Tab) 0.4 Mg) 1 tab [id number] PRN SL CHEST PAIN ; Start 03/03/16 at 20:00 Polyethylene Glycol (Miralax) 17 gm DAILY PO Last administered on 03/08/16 09 :02; Admin Dose 17 GM; Start 03/04/16 at 09:00 Potassium Chloride (Klor-Con 20) 20 meq DAILY PO Last administered on 09:03; Admin Dose 20 MEQ; Start 03/04/16 at 09:00 Quetiapine Fumarate (Seroquel) 25 mg Q8 PO Last administered on 03/08/16 05: 32; Admin Dose 25 MG; Start 03/03/16 at 22:00 Salmeterol Xinafoate/ Fluticasone (Advair 250/50 Diskus) 1 inh BID INH Last administered on 03/08/16 09:02; Admin Dose 1 INH; Start 03/03/16 at 22:00 Zolpidem Tartrate (Ambien) 5 mg QHS PRN PO INSOMNIA Last administered on 21:29; Admin Dose 5 MG; Start 03/03/16 at 20:00 Ondansetron HCl (Zofran Inj) 4 mg Q6H PRN IV NAUSEA AND/OR VOMITING Last administered on 03/08/16 05:25; Admin Dose 4 MG; Start 03/03/16 at 20:00 Methylprednisolone Sodium Succinate (Solu-Medrol) 40 mg Q12 IV Last administered on 03/08/16 09:02; Admin Dose 40 MG; Start 03/03/16 at 21:00 Insulin Glargine (Lantus) 8 unit HS SC Last administered on 03/07/16at 21:32; Admin Dose 8 UNIT; Start 03/03/16 at 22:00 Diagnostic Test (Pha) (Accucheck) 1 ea 02 XX Last administered on 03/08/16at 02 :00; Admin Dose 1 EA; Start 03/04/16 at 02:00 Pantoprazole (Protonix Tab) 40 mg DAILY@06 PO Last administered on 03/08/16at 05:32; Admin Dose 40 MG; Start 03/04/16 at 06:00 Miscellaneous Information 1 ea NOTE XX ; Start 03/03/16 at 21:00 Glucose (Glutose) 15 gm Q15M PRN PO DECREASED GLUCOSE; Start 03/03/16 at 21:00 Glucose (Glutose) 22.5 gm Q15M PRN PO DECREASED GLUCOSE; Start 03/03/16 at 21: 00 Dextrose (D50w Syringe) 25 ml Q15M PRN IV DECREASED GLUCOSE; Start 03/03/16 at 21:00 Dextrose (D50w Syringe) 50 ml Q15M PRN IV DECREASED GLUCOSE; Start 03/03/16 at 21:00 Glucagon (Glucagen) 1 mg Q15M PRN IM DECREASED GLUCOSE; Start 03/03/16 at 21: 00 Glucose 15 gm 15 gm Q15M PRN BUCCAL DECREASED GLUCOSE; Start 03/03/16 at 21:00 Levofloxacin/ Dextrose (Levaquin 500mg/ D5W 100 ml (Pmx)) 100 ml @ 100 mls/hr Q24H IVPB Last administered on 03/08/16at 13:59; Admin Dose 100 MLS/HR; Start 03/04/16 at 14:00 Metoprolol Tartrate (Lopressor) 50 mg BID PO Last administered on 03/08/16at 09 :03; Admin Dose 50 MG; Start 03/04/16 at 21:00 Enoxaparin Sodium (Lovenox) 40 mg DAILY SC Last administered on 03/08/16at 09: 12; Admin Dose 40 MG; Start 03/05/16 at 09:00 Acetaminophen/ Hydrocodone Bitart ([place] (5/325)) 1 tab Q4 PRN PO PRN Last administered on 03/08/16at 11:32; Admin Dose 1 TAB; Start 03/05/16 at 21:00 Diagnostic Test (Pha) (Accucheck) 1 ea 02 XX Last administered on 03/08/16at 02 :00; Admin Dose 1 EA; Start 03/07/16 at 02:00 Meclizine HCl (Antivert) 25 mg Q6 PO Last administered on 03/08/16at 11:32; Admin Dose 25 MG; Start 03/07/16 at 13:14 GAYE LUO Mar 08, 2016 15:34
[2016-03-08] MEDS: ATORVASTATIN 10 MG TAB PO SCH (21:03)
[2016-03-08] MEDS: INSULIN GLARGINE [LANtus] 3 ML PEN SC SCH (21:07)
[2016-03-09] VITALS (12 sets, daily range): BP systolic 130–150; BP diastolic 64–75; PULSE 70–93; RESP 19–20
[2016-03-09] MEDS: ACCUCHECK XX SCH ×2 (02:00)
[2016-03-09] MEDS: HYDROCODONE/APAP (5/325) TAB PO PRN ×3 (03:21→17:10)
[2016-03-09] MEDS: MECLIZINE 12.5 MG TAB PO SCH ×5 (03:22→22:25)
[2016-03-09] MEDS: NIFEdipine (XL) 30 MG TAB PO SCH ×2 (05:27→20:47)
[2016-03-09] MEDS: PANTOPRAZOLE (EC) 40 MG TAB PO SCH (05:28)
[2016-03-09] MEDS: QUETIAPINE 25 MG TAB PO SCH ×3 (05:28→22:25)
[2016-03-09] MEDS: IPRATROPIUM (HFA) 12.9 GM INHALER INH SCH ×2 (06:47)
[2016-03-09] MEDS: ENOXAPARIN 40 MG/0.4 ML SYG SC SCH (08:33)
[2016-03-09] MEDS: BENAZEPRIL 5 MG TAB PO SCH (08:39)
[2016-03-09] MEDS: METOPROLOL 50 MG TAB PO SCH ×2 (08:39→20:48)
[2016-03-09] MEDS: LACTOBACILLUS CHEW TAB PO SCH ×2 (08:39→20:47)
[2016-03-09] MEDS: ISOSORBIDE DINITRATE 20 MG TAB PO SCH ×3 (08:40→20:47)
[2016-03-09] MEDS: GABAPENTIN 100 MG CAP PO SCH ×3 (08:40→20:47)
[2016-03-09] MEDS: FINASTERIDE 5 MG TAB PO SCH (08:42)
[2016-03-09] MEDS: ASCORBIC ACID 500 MG TAB PO SCH (08:42)
[2016-03-09] MEDS: ASPIRIN (EC) 81 MG TAB PO SCH (08:42)
[2016-03-09] MEDS: POTASSIUM CHLORIDE (SR) 20 MEQ TAB PO SCH (08:43)
[2016-03-09] MEDS: MULTIVITAMINS THERAPEUTIC TAB PO SCH (08:43)
[2016-03-09] MEDS: DOCUSATE SODIUM 100 MG CAP PO SCH ×2 (08:43→20:47)
[2016-03-09] MEDS: SALMETEROL/FLUTICASONE 250/50 INHA INH SCH ×2 (08:45→20:49)
[2016-03-09] MEDS: METHYLPREDNISOLONE 40 MG INJ IV SCH ×2 (08:47→20:48)
[2016-03-09] MEDS: INSULIN ASPART [NOVOLOG] 3 ML PEN SC SCH ×4 (08:50→20:50)
[2016-03-09] MEDS: LACTULOSE 30ML CUP PO SCH (08:51)
[2016-03-09] MEDS: POLYETHYLENE GLYCOL 17 GM PACKET PO SCH (08:51)
[2016-03-09] MEDS: ALBUTEROL/IPRATROPIUM (NEB) 3 ML AMP HHN SCH ×3 (13:03→20:47)
[2016-03-09] MEDS: LEVOFLOXACIN 500MG/D5W (PMX) 100 ML IVPB SCH (14:16)
--- NOTE | 2016-03-09 14:23 | PN ---
Date/Time of Note Date/Time of Note DATE: 03/09/16 TIME: 14:22 Assessment/Plan VTE Prophylaxis VTE Prophylaxis Intervention: other Lines/Catheters IV [facility]from [facility] Saline Lock Urinary Cath still in place: Yes Reason Cath still needed: skin wounds contaminated by urine Assessment/Plan Chief Complaint/Hosp Course 1. Acute hypercapnic respiratory failure - stable on o2 by NC 2. Chronic obstructive pulmonary disease with acute exacerbation - Continue bronchodilators. 3. Dehydration - monitor 4. Hypertension. - stable. 5. Diabetes mellitus type 2. - monitor blood sugar 6. Sick sinus syndrome status post pacemaker - per cardiology 7. Dementia/encephalopathy Problems: Subjective 24 Hr Interval Summary Free Text/Dictation Patient wants to go home Exam/Review of Systems Vital Signs Vitals Vital Signs Date Time Temp Pulse Resp B/P Pulse Ox O2 Delivery O2 Flow Rate FiO2 03/09/16 13:03 94 26 83 Nasal Cannula 4.0 03/09/16 11:39 97.9 138/75 Intake and Output 03/08/16 03/08/16 03/09/16 15:00 23:00 07:00 Intake Total 1100 ml Output Total 1500 ml Balance -400 ml Exam Constitutional: well developed Neck: supple Respiratory: diminished breath sounds Cardiovascular: regular rate and rhythm Gastrointestinal: non-tender, soft Results Result Diagram: 03/08/16 0654 03/08/16 0654 Results 24 hrs Laboratory Tests Test 03/08/16 16:58 03/08/16 21:02 03/09/16 07:47 03/09/16 11:34 Bedside Glucose 388 H 336 H 227 H 232 H Medications Medications Current Medications Ascorbic Acid (Vitamin C) 500 mg DAILY PO Last administered on 03/09/16at 08:42 ; Admin Dose 500 MG; Start 03/04/16 at 09:00 Aspirin (Halfprin) 81 mg DAILY PO Last administered on 03/09/16at 08:42; Admin Dose 81 MG; Start 03/04/16 at 09:00 Atorvastatin Calcium (Lipitor) 10 mg QHS PO Last administered on 03/08/16at 21: 03; Admin Dose 10 MG; Start 03/03/16 at 21:00 Benazepril HCl (Lotensin) 5 mg Q12 PO Last administered on 03/09/16at 08:39; Admin Dose 5 MG; Start 12/22/16 at 21:00 Docusate Sodium (Colace) 100 mg BID PO Last administered on 03/09/16 08:43; Admin Dose 100 MG; Start 03/03/16 at 21:00 Finasteride (Proscar) 5 mg DAILY PO Last administered on 03/09/16 08:42; Admin Dose 5 MG; Start 03/04/16 at 09:00 Gabapentin (Neurontin) 100 mg TID PO Last administered on 03/09/16 14:15; Admin Dose 100 MG; Start 03/03/16 at 21:00 Ipratropium [place] (Atrovent Hfa) 2 puff Q6 INH Last administered on 06:47; Admin Dose 2 PUFF; Start 03/04/16 at 00:00 Isosorbide Dinitrate (Isordil) 20 mg TID PO Last administered on 03/09/16 14: 15; Admin Dose 20 MG; Start 03/03/16 at 21:00 Lactobacillus Acidoph/Bulgaricus (Floranex) 1 tab BID PO Last administered on 03/09/16 08:39; Admin Dose 1 TAB; Start 03/03/16 at 22:00 Lactulose (Enulose) 20 gm DAILY PO Last administered on 03/05/16 09:13; Admin Dose 20 GM; Start 03/04/16 at 09:00 Al Hydrox/Mg Hydrox/Simethicone (Mag-Al Plus) 30 ml Q6H PRN PO DISTENSION/GAS/ BLOATING; Start 03/03/16 at 20:00 Multivitamins Therapeutic (Theragran) 1 tab DAILY PO Last administered on 03/09 08:43; Admin Dose 1 TAB; Start 03/04/16 at 09:00 Nifedipine (Procardia Xl) 30 mg BID PO Last administered on 03/09/16 05:27; Admin Dose 30 MG; Start 03/03/16 at 21:00 Nitroglycerin (Nitroglycerin (Sl Tab) 0.4 Mg) 1 tab [id number] PRN SL CHEST PAIN ; Start 03/03/16 at 20:00 Polyethylene Glycol (Miralax) 17 gm DAILY PO Last administered on 03/08/16 09 :02; Admin Dose 17 GM; Start 03/04/16 at 09:00 Potassium Chloride (Klor-Con 20) 20 meq DAILY PO Last administered on 08:43; Admin Dose 20 MEQ; Start 03/04/16 at 09:00 Quetiapine Fumarate (Seroquel) 25 mg Q8 PO Last administered on 03/09/16 14: 15; Admin Dose 25 MG; Start 03/03/16 at 22:00 Salmeterol Xinafoate/ Fluticasone (Advair 250/50 Diskus) 1 inh BID INH Last administered on 03/09/16 08:45; Admin Dose 1 INH; Start 03/03/16 at 22:00 Zolpidem Tartrate (Ambien) 5 mg QHS PRN PO INSOMNIA Last administered on 21:29; Admin Dose 5 MG; Start 03/03/16 at 20:00 Ondansetron HCl (Zofran Inj) 4 mg Q6H PRN IV NAUSEA AND/OR VOMITING Last administered on 03/08/16 05:25; Admin Dose 4 MG; Start 03/03/16 at 20:00 Methylprednisolone Sodium Succinate (Solu-Medrol) 40 mg Q12 IV Last administered on 03/09/16 08:47; Admin Dose 40 MG; Start 03/03/16 at 21:00 Insulin Glargine (Lantus) 8 unit HS SC Last administered on 03/08/16at 21:07; Admin Dose 8 UNIT; Start 03/03/16 at 22:00 Diagnostic Test (Pha) (Accucheck) 1 ea 02 XX Last administered on 03/08/16at 02 :00; Admin Dose 1 EA; Start 03/04/16 at 02:00 Pantoprazole (Protonix Tab) 40 mg DAILY@06 PO Last administered on 03/09/16at 05:28; Admin Dose 40 MG; Start 03/04/16 at 06:00 Miscellaneous Information 1 ea NOTE XX ; Start 03/03/16 at 21:00 Glucose (Glutose) 15 gm Q15M PRN PO DECREASED GLUCOSE; Start 03/03/16 at 21:00 Glucose (Glutose) 22.5 gm Q15M PRN PO DECREASED GLUCOSE; Start 03/03/16 at 21: 00 Dextrose (D50w Syringe) 25 ml Q15M PRN IV DECREASED GLUCOSE; Start 03/03/16 at 21:00 Dextrose (D50w Syringe) 50 ml Q15M PRN IV DECREASED GLUCOSE; Start 03/03/16 at 21:00 Glucagon (Glucagen) 1 mg Q15M PRN IM DECREASED GLUCOSE; Start 03/03/16 at 21: 00 Glucose 15 gm 15 gm Q15M PRN BUCCAL DECREASED GLUCOSE; Start 03/03/16 at 21:00 Levofloxacin/ Dextrose (Levaquin 500mg/ D5W 100 ml (Pmx)) 100 ml @ 100 mls/hr Q24H IVPB Last administered on 03/09/16 14:16; Admin Dose 100 MLS/HR; Start 03/04/16 at 14:00 Metoprolol Tartrate (Lopressor) 50 mg BID PO Last administered on 03/09/16 08 :39; Admin Dose 50 MG; Start 03/04/16 at 21:00 Enoxaparin Sodium (Lovenox) 40 mg DAILY SC Last administered on 03/09/16 08: 33; Admin Dose 40 MG; Start 03/05/16 at 09:00 Acetaminophen/ Hydrocodone Bitart ([place] (5/325)) 1 tab Q4 PRN PO PRN Last administered on 03/09/16 08:38; Admin Dose 1 TAB; Start 03/05/16 at 21:00 Diagnostic Test (Pha) (Accucheck) 1 ea 02 XX Last administered on 03/09/16at 02 :00; Admin Dose 1 EA; Start 03/07/16 at 02:00 Meclizine HCl (Antivert) 25 mg Q6 PO Last administered on 03/09/16at 11:54; Admin Dose 25 MG; Start 03/07/16 at 13:14 GAYE LUO Mar 09, 2016 14:22
--- NOTE | 2016-03-09 14:31 | CONS ---
Date/Time of Note Date/Time of Note DATE: 03/09/16 TIME: 14:26 Assessment/Plan Assessment/Plan Chief Complaint/Hosp Course IMPRESSION: 1. Shortness of breath, assess for congestive heart failure. 2. Permanent pacemaker function. 3. Hypertension, under reasonable control on multiple oral antihypertensives. 4. Hypercapnic respiratory distress/chronic obstructive pulmonary disease exacerbation. 5. History of cardiomyopathy with mildly depressed left ventricular ejection fraction by most recent echo, February 2016. 6. Hypokalemia. 7. Anemia. 8. Leukocytosis. 9. chf-acute on chronic systolic and diastolic Recc: -tele -serial ecg's -Continue benazepril with slight increase/procardia/BB/isordil and follow-up BP closely -Continue bronchodilators/steroids -Follow volume status closely and start gentle lasix diuresis Problems: Consultation Date/Type/Reason Admit Date/Time Mar 03, 2016 at 17:24 Initial Consult Date 03/03/2016 Type of Consultation: Cardiology Reason for Consultation chf Referring Provider: GILLIAN GRIFFITH MD Exam/Review of Systems Vital Signs Vitals Vital Signs Date Time Temp Pulse Resp B/P Pulse Ox O2 Delivery O2 Flow Rate FiO2 03/09/16 13:03 94 26 83 Nasal Cannula 4.0 03/09/16 11:39 97.9 138/75 Intake and Output 03/08/16 03/08/16 03/09/16 15:00 23:00 07:00 Intake Total 1100 ml Output Total 1500 ml Balance -400 ml Exam Review of Systems: CONSTITUTIONAL: No fevers, chills. PULMONARY: No sob CARDIOVASCULAR: No chest pain/palpitations GASTROINTESTINAL: No nausea/vomiting. GENITOURINARY: No hematuria/dysuria. MUSCULOSKELETAL: No myagias/arthalgias. PSYCHIATRIC: The patient denies depression. NEUROLOGIC: No weakness Constitutional: alert Psych: no complaints Head: normocephalic ENMT: mucosa pink and moist Neck: jvd, supple Respiratory: diminished breath sounds Cardiovascular: regular rate and rhythm Gastrointestinal: non-tender, soft Musculoskeletal: muscle tone Extremities: edema (none), normal pulses Neurological: other (no focal deficits) Results Result Diagram: 03/08/16 0654 03/08/16 0654 Results 24 hrs Laboratory Tests Test 03/08/16 16:58 03/08/16 21:02 03/09/16 07:47 03/09/16 11:34 Bedside Glucose 388 H 336 H 227 H 232 H Medications Medications Current Medications Ascorbic Acid (Vitamin C) 500 mg DAILY PO Last administered on 03/09/16 08:42 ; Admin Dose 500 MG; Start 03/04/16 at 09:00 Aspirin (Halfprin) 81 mg DAILY PO Last administered on 03/09/16 08:42; Admin Dose 81 MG; Start 03/04/16 at 09:00 Atorvastatin Calcium (Lipitor) 10 mg QHS PO Last administered on 03/08/16 21: 03; Admin Dose 10 MG; Start 03/03/16 at 21:00 Benazepril HCl (Lotensin) 5 mg Q12 PO Last administered on 03/09/16 08:39; Admin Dose 5 MG; Start 03/03/16 at 21:00 Docusate Sodium (Colace) 100 mg BID PO Last administered on 03/09/16 08:43; Admin Dose 100 MG; Start 03/03/16 at 21:00 Finasteride (Proscar) 5 mg DAILY PO Last administered on 03/09/16 08:42; Admin Dose 5 MG; Start 03/04/16 at 09:00 Gabapentin (Neurontin) 100 mg TID PO Last administered on 03/09/16 14:15; Admin Dose 100 MG; Start 03/03/16 at 21:00 Ipratropium [place] (Atrovent Hfa) 2 puff Q6 INH Last administered on 06:47; Admin Dose 2 PUFF; Start 03/04/16 at 00:00 Isosorbide Dinitrate (Isordil) 20 mg TID PO Last administered on 03/09/16 14: 15; Admin Dose 20 MG; Start 03/03/16 at 21:00 Lactobacillus Acidoph/Bulgaricus (Floranex) 1 tab BID PO Last administered on 03/09/16 08:39; Admin Dose 1 TAB; Start 03/03/16 at 22:00 Lactulose (Enulose) 20 gm DAILY PO Last administered on 03/05/16 09:13; Admin Dose 20 GM; Start 03/04/16 at 09:00 Al Hydrox/Mg Hydrox/Simethicone (Mag-Al Plus) 30 ml Q6H PRN PO DISTENSION/GAS/ BLOATING; Start 03/03/16 at 20:00 Multivitamins Therapeutic (Theragran) 1 tab DAILY PO Last administered on 03/09 08:43; Admin Dose 1 TAB; Start 03/04/16 at 09:00 Nifedipine (Procardia Xl) 30 mg BID PO Last administered on 03/09/16 05:27; Admin Dose 30 MG; Start 03/03/16 at 21:00 Nitroglycerin (Nitroglycerin (Sl Tab) 0.4 Mg) 1 tab [id number] PRN SL CHEST PAIN ; Start 03/03/16 at 20:00 Polyethylene Glycol (Miralax) 17 gm DAILY PO Last administered on 03/08/16 09 :02; Admin Dose 17 GM; Start 03/04/16 at 09:00 Potassium Chloride (Klor-Con 20) 20 meq DAILY PO Last administered on 08:43; Admin Dose 20 MEQ; Start 03/04/16 at 09:00 Quetiapine Fumarate (Seroquel) 25 mg Q8 PO Last administered on 03/09/16 14: 15; Admin Dose 25 MG; Start 03/03/16 at 22:00 Salmeterol Xinafoate/ Fluticasone (Advair 250/50 Diskus) 1 inh BID INH Last administered on 03/09/16 08:45; Admin Dose 1 INH; Start 03/03/16 at 22:00 Zolpidem Tartrate (Ambien) 5 mg QHS PRN PO INSOMNIA Last administered on 21:29; Admin Dose 5 MG; Start 03/03/16 at 20:00 Ondansetron HCl (Zofran Inj) 4 mg Q6H PRN IV NAUSEA AND/OR VOMITING Last administered on 03/08/16 05:25; Admin Dose 4 MG; Start 03/03/16 at 20:00 Methylprednisolone Sodium Succinate (Solu-Medrol) 40 mg Q12 IV Last administered on 03/09/16 08:47; Admin Dose 40 MG; Start 03/03/16 at 21:00 Insulin Glargine (Lantus) 8 unit HS SC Last administered on 03/08/16 21:07; Admin Dose 8 UNIT; Start 03/03/16 at 22:00 Diagnostic Test (Pha) (Accucheck) ea 02 XX Last administered on 03/08/16at 02 :00; Admin Dose 1 EA; Start 03/04/16 at 02:00 Pantoprazole (Protonix Tab) 40 mg DAILY@06 PO Last administered on 03/09/16at 05:28; Admin Dose 40 MG; Start 03/04/16 at 06:00 Miscellaneous Information 1 ea NOTE XX ; Start 03/03/16 at 21:00 Glucose (Glutose) 15 gm Q15M PRN PO DECREASED GLUCOSE; Start 03/03/16 at 21:00 Glucose (Glutose) 22.5 gm Q15M PRN PO DECREASED GLUCOSE; Start 03/03/16 at 21: 00 Dextrose (D50w Syringe) 25 ml Q15M PRN IV DECREASED GLUCOSE; Start 03/03/16 at 21:00 Dextrose (D50w Syringe) 50 ml Q15M PRN IV DECREASED GLUCOSE; Start 03/03/16 at 21:00 Glucagon (Glucagen) 1 mg Q15M PRN IM DECREASED GLUCOSE; Start 03/03/16 at 21: 00 Glucose 15 gm 15 gm Q15M PRN BUCCAL DECREASED GLUCOSE; Start 03/03/16 at 21:00 Levofloxacin/ Dextrose (Levaquin 500mg/ D5W 100 ml (Pmx)) 100 ml @ 100 mls/hr Q24H IVPB Last administered on 03/09/16at 14:16; Admin Dose 100 MLS/HR; Start 03/04/16 at 14:00 Metoprolol Tartrate (Lopressor) 50 mg BID PO Last administered on 03/09/16at 08 :39; Admin Dose 50 MG; Start 03/04/16 at 21:00 Enoxaparin Sodium (Lovenox) 40 mg DAILY SC Last administered on 03/09/16at 08: 33; Admin Dose 40 MG; Start 03/05/16 at 09:00 Acetaminophen/ Hydrocodone Bitart ([place] (5/325)) 1 tab Q4 PRN PO PRN Last administered on 03/09/16at 08:38; Admin Dose 1 TAB; Start 03/05/16 at 21:00 Diagnostic Test (Pha) (Accucheck) 1 ea 02 XX Last administered on 03/09/16at 02 :00; Admin Dose 1 EA; Start 03/07/16 at 02:00 Meclizine HCl (Antivert) 25 mg Q6 PO Last administered on 03/09/16at 11:54; Admin Dose 25 MG; Start 03/07/16 at 13:14 VAISHNAVI BUTTS Mar 09, 2016 14:30
[2016-03-09] MEDS: FUROSEMIDE 20 MG INJ IV SCH (15:06)
--- NOTE | 2016-03-09 17:32 | RADRPT ---
PROCEDURE: XR Chest. CLINICAL INDICATION: Shortness of breath. TECHNIQUE: Single frontal view. COMPARISON: None. FINDINGS: There is air space disease at both lung bases consistent with atelectasis or pneumonia, worse than s een previously. The lungs are otherwise clear. The heart size is normal. There is calcification in the aorta consistent with atherosclerosis. The re is a left-sided biventricular pacemaker. There is no pleural effusion. There is no pneumothorax. IMPRESSION: 1. Worse appearance of the lungs. 2. No other change from 03/03/16. RPTAT: QQ .Denis Maciel MD, MD Date Time Electronically viewed and signed by .Denis Maciel MD, on 03/09/2016 17:32 .R/
[2016-03-09] MEDS: ATORVASTATIN 10 MG TAB PO SCH (20:47)
[2016-03-09] MEDS: BENAZEPRIL 10 MG TAB PO SCH (20:48)
[2016-03-09] MEDS: INSULIN GLARGINE [LANtus] 3 ML PEN SC SCH (20:50)
[2016-03-09] MEDS ORDERED: BENAZEPRIL 5 MG TAB PO SCH (21:00)
[2016-03-09] MEDS ORDERED: VITAMIN A & D 5 GM OINT PACKET TOP ONE (23:58)
[2016-03-10] VITALS (12 sets, daily range): BP systolic 129–147; BP diastolic 69–96; PULSE 75–93; RESP 17–20
[2016-03-10] MEDS: ZOLPIDEM 5 MG TAB PO PRN ×2 (00:23→22:29)
[2016-03-10] MEDS: ACCUCHECK XX SCH ×2 (02:00)
[2016-03-10] MEDS: QUETIAPINE 25 MG TAB PO SCH ×3 (05:14→22:29)
[2016-03-10] MEDS: MECLIZINE 12.5 MG TAB PO SCH ×4 (05:14→22:30)
[2016-03-10] MEDS: PANTOPRAZOLE (EC) 40 MG TAB PO SCH (05:14)
[2016-03-10] MEDS: FUROSEMIDE 20 MG INJ IV SCH ×2 (05:15→18:39)
[2016-03-10] MEDS: HYDROCODONE/APAP (5/325) TAB PO PRN ×4 (06:31→20:51)
[2016-03-10] MEDS: LACTOBACILLUS CHEW TAB PO SCH ×2 (09:00→22:29)
[2016-03-10] MEDS: LACTULOSE 30ML CUP PO SCH (09:00)
[2016-03-10] MEDS: POLYETHYLENE GLYCOL 17 GM PACKET PO SCH (09:00)
[2016-03-10] MEDS: SALMETEROL/FLUTICASONE 250/50 INHA INH SCH ×2 (09:09→22:30)
[2016-03-10] MEDS: ENOXAPARIN 40 MG/0.4 ML SYG SC SCH (09:09)
[2016-03-10] MEDS: INSULIN ASPART [NOVOLOG] 3 ML PEN SC SCH ×4 (09:11→20:55)
[2016-03-10] MEDS: METHYLPREDNISOLONE 40 MG INJ IV SCH ×2 (09:11→20:48)
[2016-03-10] MEDS: BENAZEPRIL 10 MG TAB PO SCH ×2 (09:18→20:46)
[2016-03-10] MEDS: FINASTERIDE 5 MG TAB PO SCH (09:18)
[2016-03-10] MEDS: ISOSORBIDE DINITRATE 20 MG TAB PO SCH ×3 (09:19→20:47)
[2016-03-10] MEDS: POTASSIUM CHLORIDE (SR) 20 MEQ TAB PO SCH (09:19)
[2016-03-10] MEDS: NIFEdipine (XL) 30 MG TAB PO SCH ×2 (09:20→20:47)
[2016-03-10] MEDS: GABAPENTIN 100 MG CAP PO SCH ×3 (09:20→20:48)
[2016-03-10] MEDS: METOPROLOL 50 MG TAB PO SCH ×2 (09:20→20:47)
[2016-03-10] MEDS: MULTIVITAMINS THERAPEUTIC TAB PO SCH (09:21)
[2016-03-10] MEDS: DOCUSATE SODIUM 100 MG CAP PO SCH ×2 (09:21→20:48)
[2016-03-10] MEDS: ASCORBIC ACID 500 MG TAB PO SCH (09:21)
[2016-03-10] MEDS: ASPIRIN (EC) 81 MG TAB PO SCH (09:21)
[2016-03-10] MEDS: ACETAMINOPHEN 325 MG TAB PO PRN (09:25)
[2016-03-10] MEDS: ALBUTEROL/IPRATROPIUM (NEB) 3 ML AMP HHN SCH ×4 (09:28→21:03)
[2016-03-10] MEDS: LEVOFLOXACIN 500MG/D5W (PMX) 100 ML IVPB SCH (14:26)
--- NOTE | 2016-03-10 14:35 | PN ---
Date/Time of Note Date/Time of Note DATE: 03/10/16 TIME: 14:35 Assessment/Plan VTE Prophylaxis VTE Prophylaxis Intervention: other Lines/Catheters IV Catheter Type (from Nrs): Saline Lock Urinary Cath still in place: Yes Reason Cath still needed: skin wounds contaminated by urine Assessment/Plan Chief Complaint/Hosp Course 1. Acute hypercapnic respiratory failure - stable on o2 by NC 2. Chronic obstructive pulmonary disease with acute exacerbation - Continue bronchodilators. 3. Dehydration - monitor 4. Hypertension. - stable. 5. Diabetes mellitus type 2. - monitor blood sugar 6. Sick sinus syndrome status post pacemaker - per cardiology 7. Dementia/encephalopathy Problems: Subjective 24 Hr Interval Summary Free Text/Dictation Patient had choking incident but has since resolved Exam/Review of Systems Vital Signs Vitals Vital Signs Date Time Temp Pulse Resp B/P Pulse Ox O2 Delivery O2 Flow Rate FiO2 03/10/16 13:55 86 20 93 Nasal Cannula 3.0 03/10/16 11:59 98.8 138/77 Intake and Output 03/09/16 03/09/16 03/10/16 15:00 23:00 07:00 Intake Total 750 ml 500 ml Output Total 1000 ml 300 ml Balance -250 ml 200 ml Exam Constitutional: alert, well developed Neck: supple Respiratory: diminished breath sounds Cardiovascular: regular rate and rhythm Gastrointestinal: non-tender, soft Extremities: normal pulses Results Result Diagram: 03/08/16 0654 03/08/16 0654 Results 24 hrs Laboratory Tests Test 03/09/16 17:12 03/09/16 20:44 03/10/16 05:11 03/10/16 07:36 Bedside Glucose 273 H 261 H 248 H 222 H Test 03/10/16 11:31 Bedside Glucose 236 H Medications Medications Current Medications Ascorbic Acid (Vitamin C) 500 mg DAILY PO Last administered on 03/10/16at 09:21 ; Admin Dose 500 MG; Start 03/04/16 at 09:00 Aspirin (Halfprin) 81 mg DAILY PO Last administered on 03/10/16at 09:21; Admin Dose 81 MG; Start 03/04/16 at 09:00 Atorvastatin Calcium (Lipitor) 10 mg QHS PO Last administered on 03/09/16at 20: 47; Admin Dose 10 MG; Start 03/03/16 at 21:00 Docusate Sodium (Colace) 100 mg BID PO Last administered on 03/10/16 09:21; Admin Dose 100 MG; Start 03/03/16 at 21:00 Finasteride (Proscar) 5 mg DAILY PO Last administered on 03/10/16 09:18; Admin Dose 5 MG; Start 03/04/16 at 09:00 Gabapentin (Neurontin) 100 mg TID PO Last administered on 03/10/16 12:26; Admin Dose 100 MG; Start 03/03/16 at 21:00 Ipratropium [place] (Atrovent Hfa) 2 puff Q6 INH Last administered on 06:47; Admin Dose 2 PUFF; Start 03/04/16 at 00:00 Isosorbide Dinitrate (Isordil) 20 mg TID PO Last administered on 03/10/16 12: 27; Admin Dose 20 MG; Start 03/03/16 at 21:00 Lactobacillus Acidoph/Bulgaricus (Floranex) 1 tab BID PO Last administered on 03/09/16 20:47; Admin Dose 1 TAB; Start 03/03/16 at 22:00 Lactulose (Enulose) 20 gm DAILY PO Last administered on 03/05/16 09:13; Admin Dose 20 GM; Start 03/04/16 at 09:00 Al Hydrox/Mg Hydrox/Simethicone (Mag-Al Plus) 30 ml Q6H PRN PO DISTENSION/GAS/ BLOATING; Start 03/03/16 at 20:00 Multivitamins Therapeutic (Theragran) 1 tab DAILY PO Last administered on 03/10 09:21; Admin Dose 1 TAB; Start 03/04/16 at 09:00 Nifedipine (Procardia Xl) 30 mg BID PO Last administered on 03/10/16 09:20; Admin Dose 30 MG; Start 03/03/16 at 21:00 Nitroglycerin (Nitroglycerin (Sl Tab) 0.4 Mg) 1 tab [id number] PRN SL CHEST PAIN ; Start 03/03/16 at 20:00 Polyethylene Glycol (Miralax) 17 gm DAILY PO Last administered on 03/08/16 09 :02; Admin Dose 17 GM; Start 03/04/16 at 09:00 Potassium Chloride (Klor-Con 20) 20 meq DAILY PO Last administered on 09:19; Admin Dose 20 MEQ; Start 03/04/16 at 09:00 Quetiapine Fumarate (Seroquel) 25 mg Q8 PO Last administered on 03/10/16at 14: 26; Admin Dose 25 MG; Start 03/03/16 at 22:00 Salmeterol Xinafoate/ Fluticasone (Advair 250/50 Diskus) 1 inh BID INH Last administered on 03/10/16at 09:09; Admin Dose 1 INH; Start 03/03/16 at 22:00 Zolpidem Tartrate (Ambien) 5 mg QHS PRN PO INSOMNIA Last administered on at 00:23; Admin Dose 5 MG; Start 03/03/16 at 20:00 Ondansetron HCl (Zofran Inj) 4 mg Q6H PRN IV NAUSEA AND/OR VOMITING Last administered on 03/08/16at 05:25; Admin Dose 4 MG; Start 03/03/16 at 20:00 Methylprednisolone Sodium Succinate (Solu-Medrol) 40 mg Q12 IV Last administered on 03/10/16at 09:11; Admin Dose 40 MG; Start 03/03/16 at 21:00 Insulin Glargine (Lantus) 8 unit HS SC Last administered on 03/09/16at 20:50; Admin Dose 8 UNIT; Start 03/03/16 at 22:00 Diagnostic Test (Pha) (Accucheck) 1 ea 02 XX Last administered on 03/08/16at 02 :00; Admin Dose 1 EA; Start 03/04/16 at 02:00 Pantoprazole (Protonix Tab) 40 mg DAILY@06 PO Last administered on 03/10/16at 05:14; Admin Dose 40 MG; Start 03/04/16 at 06:00 Miscellaneous Information 1 ea NOTE XX ; Start 03/03/16 at 21:00 Glucose (Glutose) 15 gm Q15M PRN PO DECREASED GLUCOSE; Start 03/03/16 at 21:00 Glucose (Glutose) 22.5 gm Q15M PRN PO DECREASED GLUCOSE; Start 03/03/16 at 21: 00 Dextrose (D50w Syringe) 25 ml Q15M PRN IV DECREASED GLUCOSE; Start 03/03/16 at 21:00 Dextrose (D50w Syringe) 50 ml Q15M PRN IV DECREASED GLUCOSE; Start 03/03/16 at 21:00 Glucagon (Glucagen) 1 mg Q15M PRN IM DECREASED GLUCOSE; Start 03/03/16 at 21: 00 Glucose 15 gm 15 gm Q15M PRN BUCCAL DECREASED GLUCOSE; Start 03/03/16 at 21:00 Levofloxacin/ Dextrose (Levaquin 500mg/ D5W 100 ml (Pmx)) 100 ml @ 100 mls/hr Q24H IVPB Last administered on 03/10/16 14:26; Admin Dose 100 MLS/HR; Start 03/04/16 at 14:00 Metoprolol Tartrate (Lopressor) 50 mg BID PO Last administered on 03/10/16 09 :20; Admin Dose 50 MG; Start 03/04/16 at 21:00 Enoxaparin Sodium (Lovenox) 40 mg DAILY SC Last administered on 03/10/16 09: 09; Admin Dose 40 MG; Start 03/05/16 at 09:00 Acetaminophen/ Hydrocodone Bitart ([place] (5/325)) 1 tab Q4 PRN PO PRN Last administered on 03/10/16 12:27; Admin Dose 1 TAB; Start 03/05/16 at 21:00 Diagnostic Test (Pha) (Accucheck) 1 ea 02 XX Last administered on 03/09/16 02 :00; Admin Dose 1 EA; Start 03/07/16 at 02:00 Meclizine HCl (Antivert) 25 mg Q6 PO Last administered on 03/10/16 12:27; Admin Dose 25 MG; Start 03/07/16 at 13:14 Furosemide (Lasix) 20 mg DAILY@06 IV Last administered on 03/10/16 05:15; Admin Dose 20 MG; Start 03/09/16 at 14:30 Benazepril HCl (Lotensin) 10 mg Q12 PO Last administered on 03/10/16 09:18; Admin Dose 10 MG; Start 03/09/16 at 21:00 GAYE LUO Mar 10, 2016 14:35
--- NOTE | 2016-03-10 15:33 | CONS ---
Date/Time of Note Date/Time of Note DATE: 03/10/16 TIME: 15:32 Consult Date/Type/Reason Admit Date/Time Mar 03, 2016 at 17:24 Initial Consult Date Type of Consultation: pulmonary Ordering Provider: GILLIAN GRIFFITH MD Subjective Patient stable no new events Objective Vital Signs Date Time Temp Pulse Resp B/P Pulse Ox O2 Delivery O2 Flow Rate FiO2 03/10/16 13:55 86 20 93 Nasal Cannula 3.0 03/10/16 11:59 98.8 138/77 Intake and Output 03/09/16 03/09/16 03/10/16 14:59 22:59 06:59 Intake Total 750 ml 500 ml Output Total 1000 ml 300 ml Balance -250 ml 200 ml GENERAL: Elderly gentleman comfortable at rest no acute distress VITAL SIGNS: per chart NECK: Supple. No JVD or lymphadenopathy. CARDIAC EXAM: S1, S2. No added sounds or murmurs. CHEST: clear bilaterally, No added sounds, rales or wheezes ABDOMEN: Soft, nontender. No guarding or rebound. EXTREMITIES: No cyanosis, clubbing or edema. NEUROLOGIC: Generalized weakness. No focal deficits. Results/Medications Result Diagram: 03/08/16 0654 03/08/16 0654 Results 24 hrs Laboratory Tests Test 03/09/16 17:12 03/09/16 20:44 03/10/16 05:11 03/10/16 07:36 Bedside Glucose 273 H 261 H 248 H 222 H Test 03/10/16 11:31 Bedside Glucose 236 H Medications Current Medications Ascorbic Acid (Vitamin C) 500 mg DAILY PO Last administered on 03/10/16at 09:21 ; Admin Dose 500 MG; Start 03/04/16 at 09:00 Aspirin (Halfprin) 81 mg DAILY PO Last administered on 03/10/16at 09:21; Admin Dose 81 MG; Start 03/04/16 at 09:00 Atorvastatin Calcium (Lipitor) 10 mg QHS PO Last administered on 03/09/16at 20: 47; Admin Dose 10 MG; Start 03/03/16 at 21:00 Docusate Sodium (Colace) 100 mg BID PO Last administered on 03/10/16at 09:21; Admin Dose 100 MG; Start 03/03/16 at 21:00 Finasteride (Proscar) 5 mg DAILY PO Last administered on 03/10/16 09:18; Admin Dose 5 MG; Start 03/04/16 at 09:00 Gabapentin (Neurontin) 100 mg TID PO Last administered on 03/10/16 12:26; Admin Dose 100 MG; Start 03/03/16 at 21:00 Ipratropium [place] (Atrovent Hfa) 2 puff Q6 INH Last administered on 06:47; Admin Dose 2 PUFF; Start 03/04/16 at 00:00 Isosorbide Dinitrate (Isordil) 20 mg TID PO Last administered on 03/10/16 12: 27; Admin Dose 20 MG; Start 03/03/16 at 21:00 Lactobacillus Acidoph/Bulgaricus (Floranex) 1 tab BID PO Last administered on 03/09/16 20:47; Admin Dose 1 TAB; Start 03/03/16 at 22:00 Lactulose (Enulose) 20 gm DAILY PO Last administered on 03/05/16 09:13; Admin Dose 20 GM; Start 03/04/16 at 09:00 Al Hydrox/Mg Hydrox/Simethicone (Mag-Al Plus) 30 ml Q6H PRN PO DISTENSION/GAS/ BLOATING; Start 03/03/16 at 20:00 Multivitamins Therapeutic (Theragran) 1 tab DAILY PO Last administered on 03/10 09:21; Admin Dose 1 TAB; Start 03/04/16 at 09:00 Nifedipine (Procardia Xl) 30 mg BID PO Last administered on 03/10/16 09:20; Admin Dose 30 MG; Start 03/03/16 at 21:00 Nitroglycerin (Nitroglycerin (Sl Tab) 0.4 Mg) 1 tab [id number] PRN SL CHEST PAIN ; Start 03/03/16 at 20:00 Polyethylene Glycol (Miralax) 17 gm DAILY PO Last administered on 03/08/16 09 :02; Admin Dose 17 GM; Start 03/04/16 at 09:00 Potassium Chloride (Klor-Con 20) 20 meq DAILY PO Last administered on 09:19; Admin Dose 20 MEQ; Start 03/04/16 at 09:00 Quetiapine Fumarate (Seroquel) 25 mg Q8 PO Last administered on 03/10/16 14: 26; Admin Dose 25 MG; Start 03/03/16 at 22:00 Salmeterol Xinafoate/ Fluticasone (Advair 250/50 Diskus) 1 inh BID INH Last administered on 03/10/16at 09:09; Admin Dose 1 INH; Start 03/03/16 at 22:00 Zolpidem Tartrate (Ambien) 5 mg QHS PRN PO INSOMNIA Last administered on at 00:23; Admin Dose 5 MG; Start 03/03/16 at 20:00 Ondansetron HCl (Zofran Inj) 4 mg Q6H PRN IV NAUSEA AND/OR VOMITING Last administered on 03/08/16at 05:25; Admin Dose 4 MG; Start 03/03/16 at 20:00 Methylprednisolone Sodium Succinate (Solu-Medrol) 40 mg Q12 IV Last administered on 03/10/16at 09:11; Admin Dose 40 MG; Start 03/03/16 at 21:00 Insulin Glargine (Lantus) 8 unit HS SC Last administered on 03/09/16at 20:50; Admin Dose 8 UNIT; Start 03/03/16 at 22:00 Diagnostic Test (Pha) (Accucheck) 1 ea 02 XX Last administered on 03/08/16at 02 :00; Admin Dose 1 EA; Start 03/04/16 at 02:00 Pantoprazole (Protonix Tab) 40 mg DAILY@06 PO Last administered on 03/10/16at 05:14; Admin Dose 40 MG; Start 03/04/16 at 06:00 Miscellaneous Information 1 ea NOTE XX ; Start 03/03/16 at 21:00 Glucose (Glutose) 15 gm Q15M PRN PO DECREASED GLUCOSE; Start 03/03/16 at 21:00 Glucose (Glutose) 22.5 gm Q15M PRN PO DECREASED GLUCOSE; Start 03/03/16 at 21: 00 Dextrose (D50w Syringe) 25 ml Q15M PRN IV DECREASED GLUCOSE; Start 03/03/16 at 21:00 Dextrose (D50w Syringe) 50 ml Q15M PRN IV DECREASED GLUCOSE; Start 03/03/16 at 21:00 Glucagon (Glucagen) 1 mg Q15M PRN IM DECREASED GLUCOSE; Start 03/03/16 at 21: 00 Glucose 15 gm 15 gm Q15M PRN BUCCAL DECREASED GLUCOSE; Start 03/03/16 at 21:00 Levofloxacin/ Dextrose (Levaquin 500mg/ D5W 100 ml (Pmx)) 100 ml @ 100 mls/hr Q24H IVPB Last administered on 03/10/16 14:26; Admin Dose 100 MLS/HR; Start 03/04/16 at 14:00 Metoprolol Tartrate (Lopressor) 50 mg BID PO Last administered on 03/10/16 09 :20; Admin Dose 50 MG; Start 03/04/16 at 21:00 Enoxaparin Sodium (Lovenox) 40 mg DAILY SC Last administered on 03/10/16 09: 09; Admin Dose 40 MG; Start 03/05/16 at 09:00 Acetaminophen/ Hydrocodone Bitart ([place] (5/325)) 1 tab Q4 PRN PO PRN Last administered on 03/10/16 12:27; Admin Dose 1 TAB; Start 03/05/16 at 21:00 Diagnostic Test (Pha) (Accucheck) 1 ea 02 XX Last administered on 03/09/16at 02 :00; Admin Dose 1 EA; Start 03/07/16 at 02:00 Meclizine HCl (Antivert) 25 mg Q6 PO Last administered on 03/10/16 12:27; Admin Dose 25 MG; Start 03/07/16 at 13:14 Furosemide (Lasix) 20 mg DAILY@06 IV Last administered on 03/10/16 05:15; Admin Dose 20 MG; Start 03/09/16 at 14:30 Benazepril HCl (Lotensin) 10 mg Q12 PO Last administered on 03/10/16 09:18; Admin Dose 10 MG; Start 03/09/16 at 21:00 Assessment/Plan Chief Complaint/Hosp Course Assessment 1. Acute hypoxemic and hypercapnic respiratory failure likely secondary to combination of congestive cardiac failure and COPD exacerbation 2. Chronic hypoxemia 3. Coronary artery disease 4. Decreased ejection fraction systolic dysfunction Plan 1. Continue supplemental O2 2 bronchodilators 3 diuretics as tolerated 4. Consider Ren evaluation Problems: J[facility]IRINOS [facility] Mar 10, 2016 15:33
--- NOTE | 2016-03-10 18:16 | CONS ---
Date/Time of Note Date/Time of Note DATE: 03/10/16 TIME: 18:12 Assessment/Plan Assessment/Plan Chief Complaint/Hosp Course IMPRESSION: 1. Shortness of breath, assess for congestive heart failure. 2. Permanent pacemaker function. 3. Hypertension, under reasonable control on multiple oral antihypertensives. 4. Hypercapnic respiratory distress/chronic obstructive pulmonary disease exacerbation. 5. History of cardiomyopathy with mildly depressed left ventricular ejection fraction by most recent echo, February 2016. 6. Hypokalemia. 7. Anemia. 8. Leukocytosis. 9. chf-acute on chronic systolic and diastolic Recc: -tele -serial ecg's -Continue benazepril/procardia/BB/isordil and follow-up BP closely -Continue bronchodilators/steroids -Follow volume status closely and continue gentle lasix diuresis Problems: Consultation Date/Type/Reason Admit Date/Time Mar 03, 2016 at 17:24 Initial Consult Date 03/03/2016 Type of Consultation: cardiology Reason for Consultation AF Referring Provider: IGLLIAN GRIFFITH MD Exam/Review of Systems Vital Signs Vitals Vital Signs Date Time Temp Pulse Resp B/P Pulse Ox O2 Delivery O2 Flow Rate FiO2 03/10/16 17:30 Nasal Cannula 3.0 03/10/16 16:11 85 03/10/16 15:38 98.4 18 140/69 95 Intake and Output 03/09/16 03/09/16 03/10/16 15:00 23:00 07:00 Intake Total 750 ml 500 ml Output Total 1000 ml 300 ml Balance -250 ml 200 ml Exam Review of Systems: CONSTITUTIONAL: No fevers, chills. PULMONARY: Mild sob CARDIOVASCULAR: No chest pain/palpitations GASTROINTESTINAL: No nausea/vomiting. GENITOURINARY: No hematuria/dysuria. MUSCULOSKELETAL: No myagias/arthalgias. PSYCHIATRIC: The patient denies depression. NEUROLOGIC: No weakness Constitutional: alert, oriented Psych: no complaints ENMT: mucosa pink and moist Neck: jvd (9 cm water), supple Respiratory: diminished breath sounds (at bases/B) Cardiovascular: regular rate and rhythm Gastrointestinal: non-tender, soft Musculoskeletal: muscle tone (normal) Extremities: pitting pedal edema (pitting at ankle bilateral) Results Result Diagram: 03/08/16 0654 03/08/16 0654 Results 24 hrs Laboratory Tests Test 03/09/16 20:44 03/10/16 05:11 03/10/16 07:36 03/10/16 11:31 Bedside Glucose 261 H 248 H 222 H 236 H Test 03/10/16 17:14 Bedside Glucose 311 H Medications Medications Current Medications Ascorbic Acid (Vitamin C) 500 mg DAILY PO Last administered on 03/10/16 09:21 ; Admin Dose 500 MG; Start 03/04/16 at 09:00 Aspirin (Halfprin) 81 mg DAILY PO Last administered on 03/10/16 09:21; Admin Dose 81 MG; Start 03/04/16 at 09:00 Atorvastatin Calcium (Lipitor) 10 mg QHS PO Last administered on 03/09/16 20: 47; Admin Dose 10 MG; Start 03/03/16 at 21:00 Docusate Sodium (Colace) 100 mg BID PO Last administered on 03/10/16 09:21; Admin Dose 100 MG; Start 03/03/16 at 21:00 Finasteride (Proscar) 5 mg DAILY PO Last administered on 03/10/16 09:18; Admin Dose 5 MG; Start 03/04/16 at 09:00 Gabapentin (Neurontin) 100 mg TID PO Last administered on 03/10/16 12:26; Admin Dose 100 MG; Start 03/03/16 at 21:00 Ipratropium [place] (Atrovent Hfa) 2 puff Q6 INH Last administered on 06:47; Admin Dose 2 PUFF; Start 03/04/16 at 00:00 Isosorbide Dinitrate (Isordil) 20 mg TID PO Last administered on 03/10/16 12: 27; Admin Dose 20 MG; Start 03/03/16 at 21:00 Lactobacillus Acidoph/Bulgaricus (Floranex) 1 tab BID PO Last administered on 03/09/16 20:47; Admin Dose 1 TAB; Start 03/03/16 at 22:00 Lactulose (Enulose) 20 gm DAILY PO Last administered on 03/05/16 09:13; Admin Dose 20 GM; Start 03/04/16 at 09:00 Al Hydrox/Mg Hydrox/Simethicone (Mag-Al Plus) 30 ml Q6H PRN PO DISTENSION/GAS/ BLOATING; Start 12/22/16 at 20:00 Multivitamins Therapeutic (Theragran) 1 tab DAILY PO Last administered on 03/10 09:21; Admin Dose 1 TAB; Start 03/04/16 at 09:00 Nifedipine (Procardia Xl) 30 mg BID PO Last administered on 03/10/16 09:20; Admin Dose 30 MG; Start 03/03/16 at 21:00 Nitroglycerin (Nitroglycerin (Sl Tab) 0.4 Mg) 1 tab [id number] PRN SL CHEST PAIN ; Start 03/03/16 at 20:00 Polyethylene Glycol (Miralax) 17 gm DAILY PO Last administered on 03/08/16 09 :02; Admin Dose 17 GM; Start 03/04/16 at 09:00 Potassium Chloride (Klor-Con 20) 20 meq DAILY PO Last administered on 09:19; Admin Dose 20 MEQ; Start 03/04/16 at 09:00 Quetiapine Fumarate (Seroquel) 25 mg Q8 PO Last administered on 03/10/16 14: 26; Admin Dose 25 MG; Start 03/03/16 at 22:00 Salmeterol Xinafoate/ Fluticasone (Advair 250/50 Diskus) 1 inh BID INH Last administered on 03/10/16 09:09; Admin Dose 1 INH; Start 03/03/16 at 22:00 Zolpidem Tartrate (Ambien) 5 mg QHS PRN PO INSOMNIA Last administered on 00:23; Admin Dose 5 MG; Start 03/03/16 at 20:00 Ondansetron HCl (Zofran Inj) 4 mg Q6H PRN IV NAUSEA AND/OR VOMITING Last administered on 03/08/16 05:25; Admin Dose 4 MG; Start 03/03/16 at 20:00 Methylprednisolone Sodium Succinate (Solu-Medrol) 40 mg Q12 IV Last administered on 03/10/16 09:11; Admin Dose 40 MG; Start 03/03/16 at 21:00 Insulin Glargine (Lantus) 8 unit HS SC Last administered on 03/09/16 20:50; Admin Dose 8 UNIT; Start 03/03/16 at 22:00 Diagnostic Test (Pha) (Accucheck) 1 ea 02 XX Last administered on 12/27/16at 02 :00; Admin Dose 1 EA; Start 03/04/16 at 02:00 Pantoprazole (Protonix Tab) 40 mg DAILY@06 PO Last administered on 03/10/16at 05:14; Admin Dose 40 MG; Start 03/04/16 at 06:00 Miscellaneous Information 1 ea NOTE XX ; Start 03/03/16 at 21:00 Glucose (Glutose) 15 gm Q15M PRN PO DECREASED GLUCOSE; Start 03/03/16 at 21:00 Glucose (Glutose) 22.5 gm Q15M PRN PO DECREASED GLUCOSE; Start 03/03/16 at 21: 00 Dextrose (D50w Syringe) 25 ml Q15M PRN IV DECREASED GLUCOSE; Start 03/03/16 at 21:00 Dextrose (D50w Syringe) 50 ml Q15M PRN IV DECREASED GLUCOSE; Start 03/03/16 at 21:00 Glucagon (Glucagen) 1 mg Q15M PRN IM DECREASED GLUCOSE; Start 03/03/16 at 21: 00 Glucose 15 gm 15 gm Q15M PRN BUCCAL DECREASED GLUCOSE; Start 03/03/16 at 21:00 Levofloxacin/ Dextrose (Levaquin 500mg/ D5W 100 ml (Pmx)) 100 ml @ 100 mls/hr Q24H IVPB Last administered on 03/10/16at 14:26; Admin Dose 100 MLS/HR; Start 03/04/16 at 14:00 Metoprolol Tartrate (Lopressor) 50 mg BID PO Last administered on 03/10/16at 09 :20; Admin Dose 50 MG; Start 03/04/16 at 21:00 Enoxaparin Sodium (Lovenox) 40 mg DAILY SC Last administered on 03/10/16at 09: 09; Admin Dose 40 MG; Start 03/05/16 at 09:00 Acetaminophen/ Hydrocodone Bitart ([place] (5/325)) 1 tab Q4 PRN PO PRN Last administered on 03/10/16at 17:12; Admin Dose 1 TAB; Start 03/05/16 at 21:00 Diagnostic Test (Pha) (Accucheck) 1 ea 02 XX Last administered on 03/09/16at 02 :00; Admin Dose 1 EA; Start 03/07/16 at 02:00 Meclizine HCl (Antivert) 25 mg Q6 PO Last administered on 12/29/16at 17:12; Admin Dose 25 MG; Start 03/07/16 at 13:14 Furosemide (Lasix) 20 mg DAILY@06 IV Last administered on 03/10/16at 05:15; Admin Dose 20 MG; Start 03/09/16 at 14:30 Benazepril HCl (Lotensin) 10 mg Q12 PO Last administered on 03/10/16at 09:18; Admin Dose 10 MG; Start 03/09/16 at 21:00 VAISHNAVI BUTTS Mar 10, 2016 18:16
[2016-03-10] MEDS: ATORVASTATIN 10 MG TAB PO SCH (20:48)
[2016-03-10] MEDS: INSULIN GLARGINE [LANtus] 3 ML PEN SC SCH (20:54)
[2016-03-11] VITALS (11 sets, daily range): BP systolic 120–151; BP diastolic 60–78; PULSE 79–95; RESP 18–22
[2016-03-11] MEDS: ACCUCHECK XX SCH ×2 (02:00)
[2016-03-11] MEDS: PANTOPRAZOLE (EC) 40 MG TAB PO SCH (05:46)
[2016-03-11] MEDS: MECLIZINE 12.5 MG TAB PO SCH ×4 (05:46→23:45)
[2016-03-11] MEDS: FUROSEMIDE 20 MG INJ IV SCH ×2 (05:46→17:25)
[2016-03-11] MEDS: HYDROCODONE/APAP (5/325) TAB PO PRN ×5 (05:47→23:53)
[2016-03-11] MEDS: QUETIAPINE 25 MG TAB PO SCH ×3 (05:47→21:00)
[2016-03-11] MEDS: ALBUTEROL/IPRATROPIUM (NEB) 3 ML AMP HHN SCH ×4 (09:00→21:00)
[2016-03-11] MEDS: POLYETHYLENE GLYCOL 17 GM PACKET PO SCH (09:07)
[2016-03-11] MEDS: SALMETEROL/FLUTICASONE 250/50 INHA INH SCH ×2 (09:07→20:47)
[2016-03-11] MEDS: DOCUSATE SODIUM 100 MG CAP PO SCH ×2 (09:08→20:45)
[2016-03-11] MEDS: METHYLPREDNISOLONE 40 MG INJ IV SCH ×2 (09:08→20:47)
[2016-03-11] MEDS: ISOSORBIDE DINITRATE 20 MG TAB PO SCH ×3 (09:08→20:46)
[2016-03-11] MEDS: POTASSIUM CHLORIDE (SR) 20 MEQ TAB PO SCH (09:08)
[2016-03-11] MEDS: LACTOBACILLUS CHEW TAB PO SCH ×2 (09:08→20:44)
[2016-03-11] MEDS: LACTULOSE 30ML CUP PO SCH (09:08)
[2016-03-11] MEDS: ASCORBIC ACID 500 MG TAB PO SCH (09:09)
[2016-03-11] MEDS: GABAPENTIN 100 MG CAP PO SCH ×3 (09:09→20:45)
[2016-03-11] MEDS: NIFEdipine (XL) 30 MG TAB PO SCH ×2 (09:09→20:46)
[2016-03-11] MEDS: FINASTERIDE 5 MG TAB PO SCH (09:09)
[2016-03-11] MEDS: BENAZEPRIL 10 MG TAB PO SCH ×2 (09:09→20:46)
[2016-03-11] MEDS: MULTIVITAMINS THERAPEUTIC TAB PO SCH (09:09)
[2016-03-11] MEDS: ASPIRIN (EC) 81 MG TAB PO SCH (09:09)
[2016-03-11] MEDS: METOPROLOL 50 MG TAB PO SCH ×2 (09:10→20:46)
[2016-03-11] MEDS: INSULIN ASPART [NOVOLOG] 3 ML PEN SC SCH ×4 (09:17→20:38)
[2016-03-11] MEDS: ENOXAPARIN 40 MG/0.4 ML SYG SC SCH (09:17)
--- NOTE | 2016-03-11 13:31 | CONS ---
Date/Time of Note Date/Time of Note DATE: 03/11/16 TIME: 13:29 Consult Date/Type/Reason Admit Date/Time Mar 03, 2016 at 17:24 Type of Consultation: pulmonary Ordering Provider: GILLIAN GRIFFITH MD Subjective Patient stable no new events Objective Vital Signs Date Time Temp Pulse Resp B/P Pulse Ox O2 Delivery O2 Flow Rate FiO2 03/11/16 12:54 94 03/11/16 12:34 98.7 21 127/65 90 03/11/16 11:46 Nasal Cannula 3.0 Intake and Output 03/10/16 03/10/16 03/11/16 15:00 23:00 07:00 Intake Total 1050 ml Output Total 1200 ml Balance -150 ml GENERAL: Elderly gentleman comfortable at rest no acute distress VITAL SIGNS: per chart NECK: Supple. No JVD or lymphadenopathy. CARDIAC EXAM: S1, S2. No added sounds or murmurs. CHEST: clear bilaterally, No added sounds, rales or wheezes ABDOMEN: Soft, nontender. No guarding or rebound. EXTREMITIES: No cyanosis, clubbing or edema. NEUROLOGIC: Generalized weakness. No focal deficits. Results/Medications Result Diagram: 03/08/16 0654 03/08/16 0654 Results 24 hrs Laboratory Tests Test 03/10/16 17:14 03/10/16 20:50 03/11/16 03:31 03/11/16 08:13 Bedside Glucose 311 H 315 H 304 H 243 H Test 03/11/16 12:02 Bedside Glucose 257 H Medications Current Medications Ascorbic Acid (Vitamin C) 500 mg DAILY PO Last administered on 03/11/16at 09:09 ; Admin Dose 500 MG; Start 03/04/16 at 09:00 Aspirin (Halfprin) 81 mg DAILY PO Last administered on 03/11/16at 09:09; Admin Dose 81 MG; Start 03/04/16 at 09:00 Atorvastatin Calcium (Lipitor) 10 mg QHS PO Last administered on 03/10/16at 20: 48; Admin Dose 10 MG; Start 03/03/16 at 21:00 Docusate Sodium (Colace) 100 mg BID PO Last administered on 03/11/16at 09:08; Admin Dose 100 MG; Start 03/03/16 at 21:00 Finasteride (Proscar) 5 mg DAILY PO Last administered on 03/11/16 09:09; Admin Dose 5 MG; Start 03/04/16 at 09:00 Gabapentin (Neurontin) 100 mg TID PO Last administered on 03/11/16 12:04; Admin Dose 100 MG; Start 03/03/16 at 21:00 Ipratropium [place] (Atrovent Hfa) 2 puff Q6 INH Last administered on 06:47; Admin Dose 2 PUFF; Start 03/04/16 at 00:00 Isosorbide Dinitrate (Isordil) 20 mg TID PO Last administered on 03/11/16 12: 04; Admin Dose 20 MG; Start 03/03/16 at 21:00 Lactobacillus Acidoph/Bulgaricus (Floranex) 1 tab BID PO Last administered on 03/11/16 09:08; Admin Dose 1 TAB; Start 03/03/16 at 22:00 Lactulose (Enulose) 20 gm DAILY PO Last administered on 03/11/16 09:08; Admin Dose 20 GM; Start 03/04/16 at 09:00 Al Hydrox/Mg Hydrox/Simethicone (Mag-Al Plus) 30 ml Q6H PRN PO DISTENSION/GAS/ BLOATING; Start 03/03/16 at 20:00 Multivitamins Therapeutic (Theragran) 1 tab DAILY PO Last administered on 03/11 09:09; Admin Dose 1 TAB; Start 03/04/16 at 09:00 Nifedipine (Procardia Xl) 30 mg BID PO Last administered on 03/11/16 09:09; Admin Dose 30 MG; Start 03/03/16 at 21:00 Nitroglycerin (Nitroglycerin (Sl Tab) 0.4 Mg) 1 tab [id number] PRN SL CHEST PAIN ; Start 03/03/16 at 20:00 Polyethylene Glycol (Miralax) 17 gm DAILY PO Last administered on 03/11/16 09 :07; Admin Dose 17 GM; Start 03/04/16 at 09:00 Potassium Chloride (Klor-Con 20) 20 meq DAILY PO Last administered on 09:08; Admin Dose 20 MEQ; Start 03/04/16 at 09:00 Quetiapine Fumarate (Seroquel) 25 mg Q8 PO Last administered on 03/11/16 05: 47; Admin Dose 25 MG; Start 03/03/16 at 22:00 Salmeterol Xinafoate/ Fluticasone (Advair 250/50 Diskus) 1 inh BID INH Last administered on 03/11/16at 09:07; Admin Dose 1 INH; Start 03/03/16 at 22:00 Zolpidem Tartrate (Ambien) 5 mg QHS PRN PO INSOMNIA Last administered on at 22:29; Admin Dose 5 MG; Start 03/03/16 at 20:00 Ondansetron HCl (Zofran Inj) 4 mg Q6H PRN IV NAUSEA AND/OR VOMITING Last administered on 03/08/16 05:25; Admin Dose 4 MG; Start 03/03/16 at 20:00 Methylprednisolone Sodium Succinate (Solu-Medrol) 40 mg Q12 IV Last administered on 03/11/16at 09:08; Admin Dose 40 MG; Start 03/03/16 at 21:00 Insulin Glargine (Lantus) 8 unit HS SC Last administered on 03/10/16at 20:54; Admin Dose 8 UNIT; Start 03/03/16 at 22:00 Diagnostic Test (Pha) (Accucheck) 1 ea 02 XX Last administered on 03/08/16at 02 :00; Admin Dose 1 EA; Start 03/04/16 at 02:00 Pantoprazole (Protonix Tab) 40 mg DAILY@06 PO Last administered on 03/11/16at 05:46; Admin Dose 40 MG; Start 03/04/16 at 06:00 Miscellaneous Information 1 ea NOTE XX ; Start 03/03/16 at 21:00 Glucose (Glutose) 15 gm Q15M PRN PO DECREASED GLUCOSE; Start 03/03/16 at 21:00 Glucose (Glutose) 22.5 gm Q15M PRN PO DECREASED GLUCOSE; Start 03/03/16 at 21: 00 Dextrose (D50w Syringe) 25 ml Q15M PRN IV DECREASED GLUCOSE; Start 03/03/16 at 21:00 Dextrose (D50w Syringe) 50 ml Q15M PRN IV DECREASED GLUCOSE; Start 03/03/16 at 21:00 Glucagon (Glucagen) 1 mg Q15M PRN IM DECREASED GLUCOSE; Start 03/03/16 at 21: 00 Glucose 15 gm 15 gm Q15M PRN BUCCAL DECREASED GLUCOSE; Start 03/03/16 at 21:00 Levofloxacin/ Dextrose (Levaquin 500mg/ D5W 100 ml (Pmx)) 100 ml @ 100 mls/hr Q24H IVPB Last administered on 03/10/16at 14:26; Admin Dose 100 MLS/HR; Start 03/04/16 at 14:00 Metoprolol Tartrate (Lopressor) 50 mg BID PO Last administered on 03/11/16at 09 :10; Admin Dose 50 MG; Start 03/04/16 at 21:00 Enoxaparin Sodium (Lovenox) 40 mg DAILY SC Last administered on 03/11/16at 09: 17; Admin Dose 40 MG; Start 03/05/16 at 09:00 Acetaminophen/ Hydrocodone Bitart ([place] (5/325)) 1 tab Q4 PRN PO PRN Last administered on 03/11/16at 10:09; Admin Dose 1 TAB; Start 03/05/16 at 21:00 Diagnostic Test (Pha) (Accucheck) 1 ea 02 XX Last administered on 03/09/16at 02 :00; Admin Dose 1 EA; Start 03/07/16 at 02:00 Meclizine HCl (Antivert) 25 mg Q6 PO Last administered on 03/11/16at 12:04; Admin Dose 25 MG; Start 03/07/16 at 13:14 Benazepril HCl (Lotensin) 10 mg Q12 PO Last administered on 03/11/16at 09:09; Admin Dose 10 MG; Start 03/09/16 at 21:00 Assessment/Plan Chief Complaint/Hosp Course Assessment 1. Acute hypoxemic and hypercapnic respiratory failure likely secondary to combination of congestive cardiac failure and COPD exacerbation 2. Chronic hypoxemia 3. Coronary artery disease 4. Decreased ejection fraction systolic dysfunction 5. Sputum positive for MRSA and Pseudomonas Plan 1. Continue supplemental O2 2 bronchodilators 3 diuretics as tolerated 4. Antibiotics per infectious diseases Problems: JOSS CHIRINOS [facility], [facility] Mar 11, 2016 13:31
[2016-03-11] MEDS: LEVOFLOXACIN 500MG/D5W (PMX) 100 ML IVPB SCH (14:55)
--- NOTE | 2016-03-11 15:16 | PN ---
Date/Time of Note Date/Time of Note DATE: 03/11/16 TIME: 15:15 Assessment/Plan VTE Prophylaxis VTE Prophylaxis Intervention: other Lines/Catheters IV Catheter Type (from Nrs): [place] Urinary Cath still in place: Yes Reason Cath still needed: skin wounds contaminated by urine Assessment/Plan Chief Complaint/Hosp Course 1. Acute hypercapnic respiratory failure - stable on o2 by NC 2. Chronic obstructive pulmonary disease with acute exacerbation - Continue bronchodilators. 3. Dehydration - monitor 4. Hypertension. - stable. 5. Diabetes mellitus type 2. - monitor blood sugar 6. Sick sinus syndrome status post pacemaker - per cardiology 7. Dementia/encephalopathy Problems: Subjective 24 Hr Interval Summary Free Text/Dictation Patient is doing well, has no complaints Exam/Review of Systems Vital Signs Vitals Vital Signs Date Time Temp Pulse Resp B/P Pulse Ox O2 Delivery O2 Flow Rate FiO2 03/11/16 12:54 94 03/11/16 12:34 98.7 21 127/65 90 03/11/16 11:46 Nasal Cannula 3.0 Intake and Output 03/10/16 03/10/16 03/11/16 15:00 23:00 07:00 Intake Total 1050 ml Output Total 1200 ml Balance -150 ml Exam Constitutional: well developed Neck: supple Respiratory: diminished breath sounds Cardiovascular: regular rate and rhythm Gastrointestinal: non-tender, soft Extremities: normal pulses Results Result Diagram: 03/08/16 0654 03/08/16 0654 Results 24 hrs Laboratory Tests Test 03/10/16 17:14 03/10/16 20:50 03/11/16 03:31 03/11/16 08:13 Bedside Glucose 311 H 315 H 304 H 243 H Test 03/11/16 12:02 Bedside Glucose 257 H Medications Medications Current Medications Ascorbic Acid (Vitamin C) 500 mg DAILY PO Last administered on 03/11/16at 09:09 ; Admin Dose 500 MG; Start 03/04/16 at 09:00 Aspirin (Halfprin) 81 mg DAILY PO Last administered on 03/11/16at 09:09; Admin Dose 81 MG; Start 03/04/16 at 09:00 Atorvastatin Calcium (Lipitor) 10 mg QHS PO Last administered on 03/10/16at 20: 48; Admin Dose 10 MG; Start 03/03/16 at 21:00 Docusate Sodium (Colace) 100 mg BID PO Last administered on 03/11/16 09:08; Admin Dose 100 MG; Start 03/03/16 at 21:00 Finasteride (Proscar) 5 mg DAILY PO Last administered on 03/11/16 09:09; Admin Dose 5 MG; Start 03/04/16 at 09:00 Gabapentin (Neurontin) 100 mg TID PO Last administered on 03/11/16 12:04; Admin Dose 100 MG; Start 03/03/16 at 21:00 Ipratropium [place] (Atrovent Hfa) 2 puff Q6 INH Last administered on 06:47; Admin Dose 2 PUFF; Start 03/04/16 at 00:00 Isosorbide Dinitrate (Isordil) 20 mg TID PO Last administered on 03/11/16 12: 04; Admin Dose 20 MG; Start 03/03/16 at 21:00 Lactobacillus Acidoph/Bulgaricus (Floranex) 1 tab BID PO Last administered on 03/11/16 09:08; Admin Dose 1 TAB; Start 03/03/16 at 22:00 Lactulose (Enulose) 20 gm DAILY PO Last administered on 03/11/16 09:08; Admin Dose 20 GM; Start 03/04/16 at 09:00 Al Hydrox/Mg Hydrox/Simethicone (Mag-Al Plus) 30 ml Q6H PRN PO DISTENSION/GAS/ BLOATING; Start 03/03/16 at 20:00 Multivitamins Therapeutic (Theragran) 1 tab DAILY PO Last administered on 03/11 09:09; Admin Dose 1 TAB; Start 03/04/16 at 09:00 Nifedipine (Procardia Xl) 30 mg BID PO Last administered on 03/11/16 09:09; Admin Dose 30 MG; Start 03/03/16 at 21:00 Nitroglycerin (Nitroglycerin (Sl Tab) 0.4 Mg) 1 tab [id number] PRN SL CHEST PAIN ; Start 03/03/16 at 20:00 Polyethylene Glycol (Miralax) 17 gm DAILY PO Last administered on 03/11/16 09 :07; Admin Dose 17 GM; Start 03/04/16 at 09:00 Potassium Chloride (Klor-Con 20) 20 meq DAILY PO Last administered on 09:08; Admin Dose 20 MEQ; Start 03/04/16 at 09:00 Quetiapine Fumarate (Seroquel) 25 mg Q8 PO Last administered on 03/11/16at 14: 55; Admin Dose 25 MG; Start 03/03/16 at 22:00 Salmeterol Xinafoate/ Fluticasone (Advair 250/50 Diskus) 1 inh BID INH Last administered on 03/11/16 09:07; Admin Dose 1 INH; Start 03/03/16 at 22:00 Zolpidem Tartrate (Ambien) 5 mg QHS PRN PO INSOMNIA Last administered on at 22:29; Admin Dose 5 MG; Start 03/03/16 at 20:00 Ondansetron HCl (Zofran Inj) 4 mg Q6H PRN IV NAUSEA AND/OR VOMITING Last administered on 03/08/16at 05:25; Admin Dose 4 MG; Start 03/03/16 at 20:00 Methylprednisolone Sodium Succinate (Solu-Medrol) 40 mg Q12 IV Last administered on 03/11/16at 09:08; Admin Dose 40 MG; Start 03/03/16 at 21:00 Insulin Glargine (Lantus) 8 unit HS SC Last administered on 03/10/16at 20:54; Admin Dose 8 UNIT; Start 03/03/16 at 22:00 Diagnostic Test (Pha) (Accucheck) 1 ea 02 XX Last administered on 03/08/16at 02 :00; Admin Dose 1 EA; Start 03/04/16 at 02:00 Pantoprazole (Protonix Tab) 40 mg DAILY@06 PO Last administered on 03/11/16at 05:46; Admin Dose 40 MG; Start 03/04/16 at 06:00 Miscellaneous Information 1 ea NOTE XX ; Start 03/03/16 at 21:00 Glucose (Glutose) 15 gm Q15M PRN PO DECREASED GLUCOSE; Start 03/03/16 at 21:00 Glucose (Glutose) 22.5 gm Q15M PRN PO DECREASED GLUCOSE; Start 03/03/16 at 21: 00 Dextrose (D50w Syringe) 25 ml Q15M PRN IV DECREASED GLUCOSE; Start 03/03/16 at 21:00 Dextrose (D50w Syringe) 50 ml Q15M PRN IV DECREASED GLUCOSE; Start 03/03/16 at 21:00 Glucagon (Glucagen) 1 mg Q15M PRN IM DECREASED GLUCOSE; Start 03/03/16 at 21: 00 Glucose 15 gm 15 gm Q15M PRN BUCCAL DECREASED GLUCOSE; Start 03/03/16 at 21:00 Levofloxacin/ Dextrose (Levaquin 500mg/ D5W 100 ml (Pmx)) 100 ml @ 100 mls/hr Q24H IVPB Last administered on 03/11/16at 14:55; Admin Dose 100 MLS/HR; Start 03/04/16 at 14:00 Metoprolol Tartrate (Lopressor) 50 mg BID PO Last administered on 03/11/16 09 :10; Admin Dose 50 MG; Start 03/04/16 at 21:00 Enoxaparin Sodium (Lovenox) 40 mg DAILY SC Last administered on 03/11/16 09: 17; Admin Dose 40 MG; Start 03/05/16 at 09:00 Acetaminophen/ Hydrocodone Bitart ([place] (5/325)) 1 tab Q4 PRN PO PRN Last administered on 03/11/16at 15:07; Admin Dose 1 TAB; Start 03/05/16 at 21:00 Diagnostic Test (Pha) (Accucheck) 1 ea 02 XX Last administered on 03/09/16at 02 :00; Admin Dose 1 EA; Start 03/07/16 at 02:00 Meclizine HCl (Antivert) 25 mg Q6 PO Last administered on 03/11/16 12:04; Admin Dose 25 MG; Start 03/07/16 at 13:14 Benazepril HCl (Lotensin) 10 mg Q12 PO Last administered on 03/11/16at 09:09; Admin Dose 10 MG; Start 03/09/16 at 21:00 GAYE LUO Mar 11, 2016 15:16
--- NOTE | 2016-03-11 17:55 | CONS ---
Date/Time of Note Date/Time of Note DATE: 03/11/16 TIME: 17:51 Assessment/Plan Assessment/Plan Chief Complaint/Hosp Course IMPRESSION: 1. Shortness of breath, assess for congestive heart failure. 2. Permanent pacemaker function. 3. Hypertension, under reasonable control on multiple oral antihypertensives. 4. Hypercapnic respiratory distress/chronic obstructive pulmonary disease exacerbation. 5. History of cardiomyopathy with mildly depressed left ventricular ejection fraction by most recent echo, 45% 01/26 6. Hypokalemia. 7. Anemia. 8. Leukocytosis. 9. 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 Recc: -tele -serial ecg's -Continue benazepril/procardia/BB/isordil and follow-up BP closely with further uptitrations as necessary -Continue bronchodilators/steroids -Follow volume status closely and continue gentle lasix diuresis Problems: Consultation Date/Type/Reason Admit Date/Time Mar 03, 2016 at 17:24 Initial Consult Date 03/03/2016 Type of Consultation: Cardiology Reason for Consultation CHF/AF Referring Provider: GILLIAN GRIFFITH MD Exam/Review of Systems Vital Signs Vitals Vital Signs Date Time Temp Pulse Resp B/P Pulse Ox O2 Delivery O2 Flow Rate FiO2 03/11/16 16:50 3.0 03/11/16 16:48 90 20 93 03/11/16 16:32 98.9 151/68 03/11/16 11:46 Nasal Cannula Intake and Output 03/10/16 03/10/16 03/11/16 15:00 23:00 07:00 Intake Total 1050 ml Output Total 1200 ml Balance -150 ml Exam Review of Systems: CONSTITUTIONAL: No fevers, chills. PULMONARY: mild sob CARDIOVASCULAR:intermittent chest akira GASTROINTESTINAL: No nausea/vomiting. GENITOURINARY: No hematuria/dysuria. MUSCULOSKELETAL: No myagias/arthalgias. PSYCHIATRIC: The patient denies depression. NEUROLOGIC: No weakness Constitutional: alert Psych: no complaints Head: normocephalic Neck: jvd (9 cm water), supple Respiratory: diminished breath sounds (at bases/B) Cardiovascular: regular rate and rhythm Gastrointestinal: non-tender, soft Musculoskeletal: muscle tone (normal) Extremities: pitting pedal edema (Bilateral but decreasing slowly) Neurological: other (No focal deficits) Results Result Diagram: 03/08/16 0654 03/08/16 0654 Results 24 hrs Laboratory Tests Test 03/10/16 20:50 03/11/16 03:31 03/11/16 08:13 03/11/16 12:02 Bedside Glucose 315 H 304 H 243 H 257 H Test 03/11/16 17:23 Bedside Glucose 228 H Medications Medications Current Medications Ascorbic Acid (Vitamin C) 500 mg DAILY PO Last administered on 03/11/16 09:09 ; Admin Dose 500 MG; Start 03/04/16 at 09:00 Aspirin (Halfprin) 81 mg DAILY PO Last administered on 03/11/16 09:09; Admin Dose 81 MG; Start 03/04/16 at 09:00 Atorvastatin Calcium (Lipitor) 10 mg QHS PO Last administered on 03/10/16 20: 48; Admin Dose 10 MG; Start 03/03/16 at 21:00 Docusate Sodium (Colace) 100 mg BID PO Last administered on 03/11/16 09:08; Admin Dose 100 MG; Start 03/03/16 at 21:00 Finasteride (Proscar) 5 mg DAILY PO Last administered on 03/11/16 09:09; Admin Dose 5 MG; Start 03/04/16 at 09:00 Gabapentin (Neurontin) 100 mg TID PO Last administered on 03/11/16 12:04; Admin Dose 100 MG; Start 03/03/16 at 21:00 Ipratropium [place] (Atrovent Hfa) 2 puff Q6 INH Last administered on 06:47; Admin Dose 2 PUFF; Start 03/04/16 at 00:00 Isosorbide Dinitrate (Isordil) 20 mg TID PO Last administered on 03/11/16 12: 04; Admin Dose 20 MG; Start 03/03/16 at 21:00 Lactobacillus Acidoph/Bulgaricus (Floranex) 1 tab BID PO Last administered on 03/11/16 09:08; Admin Dose 1 TAB; Start 03/03/16 at 22:00 Lactulose (Enulose) 20 gm DAILY PO Last administered on 03/11/16 09:08; Admin Dose 20 GM; Start 03/04/16 at 09:00 Al Hydrox/Mg Hydrox/Simethicone (Mag-Al Plus) 30 ml Q6H PRN PO DISTENSION/GAS/ BLOATING; Start 03/03/16 at 20:00 Multivitamins Therapeutic (Theragran) 1 tab DAILY PO Last administered on 03/11 09:09; Admin Dose 1 TAB; Start 03/04/16 at 09:00 Nifedipine (Procardia Xl) 30 mg BID PO Last administered on 03/11/16 09:09; Admin Dose 30 MG; Start 03/03/16 at 21:00 Nitroglycerin (Nitroglycerin (Sl Tab) 0.4 Mg) 1 tab [id number] PRN SL CHEST PAIN ; Start 03/03/16 at 20:00 Polyethylene Glycol (Miralax) 17 gm DAILY PO Last administered on 03/11/16 09 :07; Admin Dose 17 GM; Start 03/04/16 at 09:00 Potassium Chloride (Klor-Con 20) 20 meq DAILY PO Last administered on 09:08; Admin Dose 20 MEQ; Start 03/04/16 at 09:00 Quetiapine Fumarate (Seroquel) 25 mg Q8 PO Last administered on 03/11/16 14: 55; Admin Dose 25 MG; Start 03/03/16 at 22:00 Salmeterol Xinafoate/ Fluticasone (Advair 250/50 Diskus) 1 inh BID INH Last administered on 03/11/16 09:07; Admin Dose 1 INH; Start 03/03/16 at 22:00 Zolpidem Tartrate (Ambien) 5 mg QHS PRN PO INSOMNIA Last administered on 22:29; Admin Dose 5 MG; Start 03/03/16 at 20:00 Ondansetron HCl (Zofran Inj) 4 mg Q6H PRN IV NAUSEA AND/OR VOMITING Last administered on 03/08/16 05:25; Admin Dose 4 MG; Start 03/03/16 at 20:00 Methylprednisolone Sodium Succinate (Solu-Medrol) 40 mg Q12 IV Last administered on 03/11/16 09:08; Admin Dose 40 MG; Start 03/03/16 at 21:00 Insulin Glargine (Lantus) 8 unit HS SC Last administered on 03/10/16 20:54; Admin Dose 8 UNIT; Start 03/03/16 at 22:00 Diagnostic Test (Pha) (Accucheck) 1 ea XX Last administered on 03/08/16at 02 :00; Admin Dose 1 EA; Start 03/04/16 at 02:00 Pantoprazole (Protonix Tab) 40 mg DAILY@06 PO Last administered on 03/11/16at 05:46; Admin Dose 40 MG; Start 03/04/16 at 06:00 Miscellaneous Information 1 ea NOTE XX ; Start 03/03/16 at 21:00 Glucose (Glutose) 15 gm Q15M PRN PO DECREASED GLUCOSE; Start 03/03/16 at 21:00 Glucose (Glutose) 22.5 gm Q15M PRN PO DECREASED GLUCOSE; Start 03/03/16 at 21: 00 Dextrose (D50w Syringe) 25 ml Q15M PRN IV DECREASED GLUCOSE; Start 03/03/16 at 21:00 Dextrose (D50w Syringe) 50 ml Q15M PRN IV DECREASED GLUCOSE; Start 03/03/16 at 21:00 Glucagon (Glucagen) 1 mg Q15M PRN IM DECREASED GLUCOSE; Start 03/03/16 at 21: 00 Glucose 15 gm 15 gm Q15M PRN BUCCAL DECREASED GLUCOSE; Start 03/03/16 at 21:00 Levofloxacin/ Dextrose (Levaquin 500mg/ D5W 100 ml (Pmx)) 100 ml @ 100 mls/hr Q24H IVPB Last administered on 03/11/16at 14:55; Admin Dose 100 MLS/HR; Start 03/04/16 at 14:00 Metoprolol Tartrate (Lopressor) 50 mg BID PO Last administered on 03/11/16at 09 :10; Admin Dose 50 MG; Start 03/04/16 at 21:00 Enoxaparin Sodium (Lovenox) 40 mg DAILY SC Last administered on 03/11/16at 09: 17; Admin Dose 40 MG; Start 03/05/16 at 09:00 Acetaminophen/ Hydrocodone Bitart ([place] (5/325)) 1 tab Q4 PRN PO PRN Last administered on 03/11/16at 15:07; Admin Dose 1 TAB; Start 03/05/16 at 21:00 Diagnostic Test (Pha) (Accucheck) 1 ea XX Last administered on 03/09/16at 02 :00; Admin Dose 1 EA; Start 03/07/16 at 02:00 Meclizine HCl (Antivert) 25 mg Q6 PO Last administered on 03/11/16at 17:24; Admin Dose 25 MG; Start 03/07/16 at 13:14 Benazepril HCl (Lotensin) 10 mg Q12 PO Last administered on 03/11/16at 09:09; Admin Dose 10 MG; Start 03/09/16 at 21:00 VAISHNAVI BUTTS Mar 11, 2016 17:55
[2016-03-11] MEDS: INSULIN GLARGINE [LANtus] 3 ML PEN SC SCH (20:39)
[2016-03-11] MEDS: ZOLPIDEM 5 MG TAB PO PRN (20:45)
[2016-03-11] MEDS: ATORVASTATIN 10 MG TAB PO SCH (20:45)
[2016-03-12] VITALS (12 sets, daily range): BP systolic 109–132; BP diastolic 60–72; PULSE 84–100; RESP 15–18
[2016-03-12] MEDS: ACCUCHECK XX SCH ×2 (02:00)
[2016-03-12] MEDS ORDERED: INSULIN ASPART [NOVOLOG] 3 ML PEN SC ONE (02:30)
[2016-03-12] MEDS: HYDROCODONE/APAP (5/325) TAB PO PRN ×4 (04:04→18:26)
[2016-03-12] MEDS: IPRATROPIUM (HFA) 12.9 GM INHALER INH SCH ×6 (06:00→18:00)
[2016-03-12] MEDS: MECLIZINE 12.5 MG TAB PO SCH ×3 (06:03→17:34)
[2016-03-12] MEDS: PANTOPRAZOLE (EC) 40 MG TAB PO SCH (06:03)
[2016-03-12] MEDS: QUETIAPINE 25 MG TAB PO SCH ×3 (06:03→20:40)
[2016-03-12] MEDS: FUROSEMIDE 20 MG INJ IV SCH (06:04)
[2016-03-12 06:28] LABS: CALCIUM 8.1 mg/dl (8.4-10.2); CREATININE 0.6 mg/dl (0.61-1.24)
[2016-03-12] MEDS: BENAZEPRIL 10 MG TAB PO SCH ×2 (08:36→20:40)
[2016-03-12] MEDS: FINASTERIDE 5 MG TAB PO SCH (08:36)
[2016-03-12] MEDS: ASPIRIN (EC) 81 MG TAB PO SCH (08:36)
[2016-03-12] MEDS: LACTOBACILLUS CHEW TAB PO SCH ×2 (08:36→20:39)
[2016-03-12] MEDS: POTASSIUM CHLORIDE (SR) 20 MEQ TAB PO SCH (08:36)
[2016-03-12] MEDS: MULTIVITAMINS THERAPEUTIC TAB PO SCH (08:36)
[2016-03-12] MEDS: NIFEdipine (XL) 30 MG TAB PO SCH ×2 (08:37→20:40)
[2016-03-12] MEDS: GABAPENTIN 100 MG CAP PO SCH ×3 (08:37→20:39)
[2016-03-12] MEDS: ASCORBIC ACID 500 MG TAB PO SCH (08:37)
[2016-03-12] MEDS: ISOSORBIDE DINITRATE 20 MG TAB PO SCH ×3 (08:37→20:39)
[2016-03-12] MEDS: METOPROLOL 50 MG TAB PO SCH ×2 (08:37→20:40)
[2016-03-12] MEDS: DOCUSATE SODIUM 100 MG CAP PO SCH ×2 (08:38→20:41)
[2016-03-12] MEDS: METHYLPREDNISOLONE 40 MG INJ IV SCH ×2 (08:43→20:38)
[2016-03-12] MEDS: LACTULOSE 30ML CUP PO SCH ×2 (08:43→08:55)
[2016-03-12] MEDS: SALMETEROL/FLUTICASONE 250/50 INHA INH SCH ×2 (08:44→20:38)
[2016-03-12] MEDS: POLYETHYLENE GLYCOL 17 GM PACKET PO SCH ×2 (08:44→08:55)
[2016-03-12] MEDS: INSULIN ASPART [NOVOLOG] 3 ML PEN SC SCH ×4 (08:48→20:43)
[2016-03-12] MEDS: ENOXAPARIN 40 MG/0.4 ML SYG SC SCH (08:49)
--- NOTE | 2016-03-12 10:35 | PN ---
Date/Time of Note Date/Time of Note DATE: 03/12/16 TIME: 10:34 Assessment/Plan VTE Prophylaxis VTE Prophylaxis Intervention: other Lines/Catheters IV Catheter Type (from Nrs): Saline Lock Urinary Cath still in place: Yes Reason Cath still needed: skin wounds contaminated by urine Assessment/Plan Chief Complaint/Hosp Course 1. Acute hypercapnic respiratory failure - stable on o2 by NC 2. Chronic obstructive pulmonary disease with acute exacerbation - Continue bronchodilators. 3. Dehydration - monitor 4. Hypertension. - stable. 5. Diabetes mellitus type 2. - monitor blood sugar 6. Sick sinus syndrome status post pacemaker - per cardiology 7. Dementia/encephalopathy Problems: Subjective 24 Hr Interval Summary Free Text/Dictation Patient is about the same, still fixated on ativan being taken away Exam/Review of Systems Vital Signs Vitals Vital Signs Date Time Temp Pulse Resp B/P Pulse Ox O2 Delivery O2 Flow Rate FiO2 03/12/16 08:23 84 03/12/16 07:41 98.0 17 123/64 97 03/11/16 22:26 3.0 03/11/16 22:26 Nasal Cannula Intake and Output 03/11/16 03/11/16 03/12/16 15:00 23:00 07:00 Intake Total 1100 ml 350 ml Output Total 1550 ml 950 ml Balance -450 ml -600 ml Exam Constitutional: alert, well developed Head: atraumatic, normocephalic Neck: supple Respiratory: diminished breath sounds Cardiovascular: regular rate and rhythm Gastrointestinal: non-tender, soft Extremities: normal pulses Results Result Diagram: 03/08/16 0654 03/12/16 0545 Results 24 hrs Laboratory Tests Test 03/11/16 12:02 03/11/16 17:23 03/11/16 20:33 03/12/16 01:54 Bedside Glucose 257 H 228 H 237 H 391 H Test 03/12/16 05:45 03/12/16 08:17 Anion Gap 15 Blood Urea Nitrogen 28 H Calcium Level 8.1 L Carbon Dioxide Level 42 *H Chloride Level 86 L Creatinine 0.60 L Glucose Level 313 H Potassium Level 4.0 Sodium Level 139 Bedside Glucose 283 H Medications Medications Current Medications Ascorbic Acid (Vitamin C) 500 mg DAILY PO Last administered on 03/12/16at 08:37 ; Admin Dose 500 MG; Start 03/04/16 at 09:00 Aspirin (Halfprin) 81 mg DAILY PO Last administered on 03/12/16 08:36; Admin Dose 81 MG; Start 03/04/16 at 09:00 Atorvastatin Calcium (Lipitor) 10 mg QHS PO Last administered on 03/11/16 20: 45; Admin Dose 10 MG; Start 03/03/16 at 21:00 Docusate Sodium (Colace) 100 mg BID PO Last administered on 03/12/16 08:38; Admin Dose 100 MG; Start 03/03/16 at 21:00 Finasteride (Proscar) 5 mg DAILY PO Last administered on 03/12/16 08:36; Admin Dose 5 MG; Start 03/04/16 at 09:00 Gabapentin (Neurontin) 100 mg TID PO Last administered on 03/12/16 08:37; Admin Dose 100 MG; Start 03/03/16 at 21:00 Ipratropium [place] (Atrovent Hfa) 2 puff Q6 INH Last administered on 06:47; Admin Dose 2 PUFF; Start 03/04/16 at 00:00 Isosorbide Dinitrate (Isordil) 20 mg TID PO Last administered on 03/12/16 08: 37; Admin Dose 20 MG; Start 03/03/16 at 21:00 Lactobacillus Acidoph/Bulgaricus (Floranex) 1 tab BID PO Last administered on 03/12/16 08:36; Admin Dose 1 TAB; Start 03/03/16 at 22:00 Lactulose (Enulose) 20 gm DAILY PO Last administered on 03/11/16 09:08; Admin Dose 20 GM; Start 03/04/16 at 09:00 Al Hydrox/Mg Hydrox/Simethicone (Mag-Al Plus) 30 ml Q6H PRN PO DISTENSION/GAS/ BLOATING; Start 03/03/16 at 20:00 Multivitamins Therapeutic (Theragran) 1 tab DAILY PO Last administered on 03/12 08:36; Admin Dose 1 TAB; Start 03/04/16 at 09:00 Nifedipine (Procardia Xl) 30 mg BID PO Last administered on 03/12/16 08:37; Admin Dose 30 MG; Start 03/03/16 at 21:00 Nitroglycerin (Nitroglycerin (Sl Tab) 0.4 Mg) 1 tab [id number] PRN SL CHEST PAIN ; Start 03/03/16 at 20:00 Polyethylene Glycol (Miralax) 17 gm DAILY PO Last administered on 03/11/16at 09 :07; Admin Dose 17 GM; Start 03/04/16 at 09:00 Potassium Chloride (Klor-Con 20) 20 meq DAILY PO Last administered on at 08:36; Admin Dose 20 MEQ; Start 03/04/16 at 09:00 Quetiapine Fumarate (Seroquel) 25 mg Q8 PO Last administered on 03/12/16at 06: 03; Admin Dose 25 MG; Start 03/03/16 at 22:00 Salmeterol Xinafoate/ Fluticasone (Advair 250/50 Diskus) 1 inh BID INH Last administered on 03/12/16 08:44; Admin Dose 1 INH; Start 03/03/16 at 22:00 Zolpidem Tartrate (Ambien) 5 mg QHS PRN PO INSOMNIA Last administered on 20:45; Admin Dose 5 MG; Start 03/03/16 at 20:00 Ondansetron HCl (Zofran Inj) 4 mg Q6H PRN IV NAUSEA AND/OR VOMITING Last administered on 03/08/16 05:25; Admin Dose 4 MG; Start 03/03/16 at 20:00 Methylprednisolone Sodium Succinate (Solu-Medrol) 40 mg Q12 IV Last administered on 03/12/16 08:43; Admin Dose 40 MG; Start 03/03/16 at 21:00 Insulin Glargine (Lantus) 8 unit HS SC Last administered on 03/11/16at 20:39; Admin Dose 8 UNIT; Start 03/03/16 at 22:00 Pantoprazole (Protonix Tab) 40 mg DAILY@06 PO Last administered on 03/12/16 06:03; Admin Dose 40 MG; Start 03/04/16 at 06:00 Miscellaneous Information 1 ea NOTE XX ; Start 03/03/16 at 21:00 Glucose (Glutose) 15 gm Q15M PRN PO DECREASED GLUCOSE; Start 03/03/16 at 21:00 Glucose (Glutose) 22.5 gm Q15M PRN PO DECREASED GLUCOSE; Start 03/03/16 at 21: 00 Dextrose (D50w Syringe) 25 ml Q15M PRN IV DECREASED GLUCOSE; Start 03/03/16 at 21:00 Dextrose (D50w Syringe) 50 ml Q15M PRN IV DECREASED GLUCOSE; Start 03/03/16 at 21:00 Glucagon (Glucagen) 1 mg Q15M PRN IM DECREASED GLUCOSE; Start 03/03/16 at 21: 00 Glucose 15 gm 15 gm Q15M PRN BUCCAL DECREASED GLUCOSE; Start 03/03/16 at 21:00 Levofloxacin/ Dextrose (Levaquin 500mg/ D5W 100 ml (Pmx)) 100 ml @ 100 mls/hr Q24H IVPB Last administered on 03/11/16at 14:55; Admin Dose 100 MLS/HR; Start 03/04/16 at 14:00 Metoprolol Tartrate (Lopressor) 50 mg BID PO Last administered on 03/12/16at 08 :37; Admin Dose 50 MG; Start 03/04/16 at 21:00 Enoxaparin Sodium (Lovenox) 40 mg DAILY SC Last administered on 03/12/16at 08: 49; Admin Dose 40 MG; Start 03/05/16 at 09:00 Acetaminophen/ Hydrocodone Bitart ([place] (5/325)) 1 tab Q4 PRN PO PRN Last administered on 03/12/16at 08:36; Admin Dose 1 TAB; Start 03/05/16 at 21:00 Diagnostic Test (Pha) (Accucheck) 1 ea 02 XX Last administered on 03/09/16at 02 :00; Admin Dose 1 EA; Start 03/07/16 at 02:00 Meclizine HCl (Antivert) 25 mg Q6 PO Last administered on 03/12/16at 06:03; Admin Dose 25 MG; Start 03/07/16 at 13:14 Benazepril HCl (Lotensin) 10 mg Q12 PO Last administered on 03/12/16 08:36; Admin Dose 10 MG; Start 03/09/16 at 21:00 GAYE LUO Mar 12, 2016 10:35
--- NOTE | 2016-03-12 12:28 | CONS ---
Date/Time of Note Date/Time of Note DATE: 03/12/16 TIME: 12:25 Assessment/Plan Assessment/Plan Chief Complaint/Hosp Course IMPRESSION: 1. Shortness of breath, assess for congestive heart failure. 2. Permanent pacemaker function. 3. Hypertension, under reasonable control on multiple oral antihypertensives. 4. Hypercapnic respiratory distress/chronic obstructive pulmonary disease exacerbation. 5. History of cardiomyopathy with mildly depressed left ventricular ejection fraction by most recent echo, 45% 01/26 6. Hypokalemia. 7. Anemia. 8. Leukocytosis. 9. 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 Recc: -tele -serial ecg's -Continue benazepril/procardia/BB/isordil and follow-up BP closely with further uptitrations as necessary -Continue bronchodilators/steroids -Follow volume status closely and continue gentle lasix diuresis but will decrease dose given development of contraction alkalosis Problems: Consultation Date/Type/Reason Admit Date/Time Mar 03, 2016 at 17:24 Initial Consult Date 03/03/2016 Type of Consultation: Cardiology Reason for Consultation AF Referring Provider: GILLIAN GRIFFITH MD Exam/Review of Systems Vital Signs Vitals Vital Signs Date Time Temp Pulse Resp B/P Pulse Ox O2 Delivery O2 Flow Rate FiO2 03/12/16 12:10 90 03/12/16 11:59 99.1 17 132/68 95 03/12/16 08:30 Nasal Cannula 3.0 Intake and Output 03/11/16 03/11/16 03/12/16 15:00 23:00 07:00 Intake Total 1100 ml 350 ml Output Total 1550 ml 950 ml Balance -450 ml -600 ml Exam Review of Systems: CONSTITUTIONAL: No fevers, chills. PULMONARY: mild sob CARDIOVASCULAR: No chest pain/palpitations GASTROINTESTINAL: No nausea/vomiting. GENITOURINARY: No hematuria/dysuria. MUSCULOSKELETAL: No myagias/arthalgias. PSYCHIATRIC: The patient denies depression. NEUROLOGIC: No weakness Constitutional: alert, oriented Psych: no complaints Head: normocephalic ENMT: mucosa pink and moist Neck: jvd (9 cm water), supple Respiratory: diminished breath sounds Cardiovascular: regular rate and rhythm Gastrointestinal: non-tender, soft Musculoskeletal: muscle tone (normal) Extremities: pitting pedal edema Neurological: other (No focal deficits) Results Result Diagram: 03/08/16 0654 03/12/16 0545 Results 24 hrs Laboratory Tests Test 03/11/16 17:23 03/11/16 20:33 03/12/16 01:54 03/12/16 05:45 Bedside Glucose 228 H 237 H 391 H Anion Gap 15 Blood Urea Nitrogen 28 H Calcium Level 8.1 L Carbon Dioxide Level 42 *H Chloride Level 86 L Creatinine 0.60 L Glucose Level 313 H Potassium Level 4.0 Sodium Level 139 Test 03/12/16 08:17 03/12/16 11:29 Bedside Glucose 283 H 252 H Medications Medications Current Medications Ascorbic Acid (Vitamin C) 500 mg DAILY PO Last administered on 03/12/16 08:37 ; Admin Dose 500 MG; Start 03/04/16 at 09:00 Aspirin (Halfprin) 81 mg DAILY PO Last administered on 03/12/16 08:36; Admin Dose 81 MG; Start 03/04/16 at 09:00 Atorvastatin Calcium (Lipitor) 10 mg QHS PO Last administered on 03/11/16 20: 45; Admin Dose 10 MG; Start 03/03/16 at 21:00 Docusate Sodium (Colace) 100 mg BID PO Last administered on 03/12/16 08:38; Admin Dose 100 MG; Start 03/03/16 at 21:00 Finasteride (Proscar) 5 mg DAILY PO Last administered on 03/12/16 08:36; Admin Dose 5 MG; Start 03/04/16 at 09:00 Gabapentin (Neurontin) 100 mg TID PO Last administered on 03/12/16 08:37; Admin Dose 100 MG; Start 03/03/16 at 21:00 Ipratropium [place] (Atrovent Hfa) 2 puff Q6 INH Last administered on 06:47; Admin Dose 2 PUFF; Start 03/04/16 at 00:00 Isosorbide Dinitrate (Isordil) 20 mg TID PO Last administered on 03/12/16 08: 37; Admin Dose 20 MG; Start 03/03/16 at 21:00 Lactobacillus Acidoph/Bulgaricus (Floranex) 1 tab BID PO Last administered on 03/12/16 08:36; Admin Dose 1 TAB; Start 03/03/16 at 22:00 Lactulose (Enulose) 20 gm DAILY PO Last administered on 03/11/16 09:08; Admin Dose 20 GM; Start 03/04/16 at 09:00 Al Hydrox/Mg Hydrox/Simethicone (Mag-Al Plus) 30 ml Q6H PRN PO DISTENSION/GAS/ BLOATING; Start 03/03/16 at 20:00 Multivitamins Therapeutic (Theragran) 1 tab DAILY PO Last administered on 03/12 08:36; Admin Dose 1 TAB; Start 03/04/16 at 09:00 Nifedipine (Procardia Xl) 30 mg BID PO Last administered on 03/12/16 08:37; Admin Dose 30 MG; Start 03/03/16 at 21:00 Nitroglycerin (Nitroglycerin (Sl Tab) 0.4 Mg) 1 tab [id number] PRN SL CHEST PAIN ; Start 03/03/16 at 20:00 Polyethylene Glycol (Miralax) 17 gm DAILY PO Last administered on 03/11/16 09 :07; Admin Dose 17 GM; Start 03/04/16 at 09:00 Potassium Chloride (Klor-Con 20) 20 meq DAILY PO Last administered on 08:36; Admin Dose 20 MEQ; Start 03/04/16 at 09:00 Quetiapine Fumarate (Seroquel) 25 mg Q8 PO Last administered on 03/12/16 06: 03; Admin Dose 25 MG; Start 03/03/16 at 22:00 Salmeterol Xinafoate/ Fluticasone (Advair 250/50 Diskus) 1 inh BID INH Last administered on 03/12/16 08:44; Admin Dose 1 INH; Start 03/03/16 at 22:00 Zolpidem Tartrate (Ambien) 5 mg QHS PRN PO INSOMNIA Last administered on 20:45; Admin Dose 5 MG; Start 03/03/16 at 20:00 Ondansetron HCl (Zofran Inj) 4 mg Q6H PRN IV NAUSEA AND/OR VOMITING Last administered on 03/08/16 05:25; Admin Dose 4 MG; Start 03/03/16 at 20:00 Methylprednisolone Sodium Succinate (Solu-Medrol) 40 mg Q12 IV Last administered on 12/31/16at 08:43; Admin Dose 40 MG; Start 03/03/16 at 21:00 Insulin Glargine (Lantus) 8 unit HS SC Last administered on 03/11/16at 20:39; Admin Dose 8 UNIT; Start 03/03/16 at 22:00 Pantoprazole (Protonix Tab) 40 mg DAILY@06 PO Last administered on 03/12/16at 06:03; Admin Dose 40 MG; Start 03/04/16 at 06:00 Miscellaneous Information 1 ea NOTE XX ; Start 03/03/16 at 21:00 Glucose (Glutose) 15 gm Q15M PRN PO DECREASED GLUCOSE; Start 03/03/16 at 21:00 Glucose (Glutose) 22.5 gm Q15M PRN PO DECREASED GLUCOSE; Start 03/03/16 at 21: 00 Dextrose (D50w Syringe) 25 ml Q15M PRN IV DECREASED GLUCOSE; Start 03/03/16 at 21:00 Dextrose (D50w Syringe) 50 ml Q15M PRN IV DECREASED GLUCOSE; Start 03/03/16 at 21:00 Glucagon (Glucagen) 1 mg Q15M PRN IM DECREASED GLUCOSE; Start 03/03/16 at 21: 00 Glucose 15 gm 15 gm Q15M PRN BUCCAL DECREASED GLUCOSE; Start 03/03/16 at 21:00 Levofloxacin/ Dextrose (Levaquin 500mg/ D5W 100 ml (Pmx)) 100 ml @ 100 mls/hr Q24H IVPB Last administered on 03/11/16at 14:55; Admin Dose 100 MLS/HR; Start 03/04/16 at 14:00 Metoprolol Tartrate (Lopressor) 50 mg BID PO Last administered on 03/12/16at 08 :37; Admin Dose 50 MG; Start 03/04/16 at 21:00 Enoxaparin Sodium (Lovenox) 40 mg DAILY SC Last administered on 03/12/16at 08: 49; Admin Dose 40 MG; Start 03/05/16 at 09:00 Acetaminophen/ Hydrocodone Bitart ([place] (5/325)) 1 tab Q4 PRN PO PRN Last administered on 03/12/16at 08:36; Admin Dose 1 TAB; Start 03/05/16 at 21:00 Diagnostic Test (Pha) (Accucheck) 1 ea 02 XX Last administered on 03/09/16at 02 :00; Admin Dose 1 EA; Start 03/07/16 at 02:00 Meclizine HCl (Antivert) 25 mg Q6 PO Last administered on 03/12/16at 06:03; Admin Dose 25 MG; Start 03/07/16 at 13:14 Benazepril HCl (Lotensin) 10 mg Q12 PO Last administered on 03/12/16at 08:36; Admin Dose 10 MG; Start 03/09/16 at 21:00 VAISHNAVI BUTTS Mar 12, 2016 12:28
[2016-03-12] MEDS: ALBUTEROL/IPRATROPIUM (NEB) 3 ML AMP HHN SCH ×3 (13:47→20:02)
[2016-03-12] MEDS: LEVOFLOXACIN 500MG/D5W (PMX) 100 ML IVPB SCH (13:59)
--- NOTE | 2016-03-12 18:28 | PN ---
DATE: 03/12/2016 SUBJECTIVE: Patient treatment remains stable, no new events. PHYSICAL EXAMINATION: VITAL SIGNS: Temperature 99, pulse 84, blood pressure 132/68, O2 saturation 98% on 2 L nasal cannul a. HEENT: Dry mucous membranes. Pupils equal and reactive to light. CARDIAC: S1, S2, II/ systolic ejection murmur. CHEST: Diminished air entry bilaterally. ABDOMEN: Soft, nontender. No guarding or rebound. EXTREMITIES: No cyanosis, clubbing. Edema +1. NEUROLOGIC: Bilateral lower extremity weakness. LABORATORY DATA: White count 16.1, hemoglobin 9.8, platelets 435. BUN 28, creatinine 0.6. IMPRESSION AND PLAN: 1. Congestive cardiac failure. 2. Hypoxemic respiratory failure. 3. Chronic obstructive pulmonary disease with acute exacerbation. 4. Significant deconditioning. The patient will require: 1. Continued supplemental O2. 2. Bronchodilators. 3. Pain and anxiety control. PLAN: From pulmonary standpoint, the patient can likely be discharged home back to [facility]. Dictated By: JOSS AVELAR/KAT Conf#: [id number] DID#: [id number]
[2016-03-12] MEDS: ATORVASTATIN 10 MG TAB PO SCH (20:39)
[2016-03-12] MEDS: ZOLPIDEM 5 MG TAB PO PRN (20:40)
[2016-03-12] MEDS: INSULIN GLARGINE [LANtus] 3 ML PEN SC SCH (20:42)
[2016-03-13] VITALS (12 sets, daily range): BP systolic 117–161; BP diastolic 64–76; PULSE 72–95; RESP 16–20
[2016-03-13] MEDS: ACCUCHECK XX SCH (02:00)
[2016-03-13] MEDS: MECLIZINE 12.5 MG TAB PO SCH ×4 (06:29→16:48)
[2016-03-13] MEDS: QUETIAPINE 25 MG TAB PO SCH ×3 (06:29→21:19)
[2016-03-13] MEDS: PANTOPRAZOLE (EC) 40 MG TAB PO SCH (06:30)
[2016-03-13] MEDS: IPRATROPIUM (HFA) 12.9 GM INHALER INH SCH ×4 (06:30→17:14)
[2016-03-13] MEDS: MULTIVITAMINS THERAPEUTIC TAB PO SCH (08:08)
[2016-03-13] MEDS: NIFEdipine (XL) 30 MG TAB PO SCH ×2 (08:08→21:23)
[2016-03-13] MEDS: LACTOBACILLUS CHEW TAB PO SCH ×2 (08:08→21:20)
[2016-03-13] MEDS: DOCUSATE SODIUM 100 MG CAP PO SCH ×2 (08:08→21:19)
[2016-03-13] MEDS: GABAPENTIN 100 MG CAP PO SCH ×3 (08:08→21:19)
[2016-03-13] MEDS: POTASSIUM CHLORIDE (SR) 20 MEQ TAB PO SCH (08:08)
[2016-03-13] MEDS: ASPIRIN (EC) 81 MG TAB PO SCH (08:08)
[2016-03-13] MEDS: ASCORBIC ACID 500 MG TAB PO SCH (08:08)
[2016-03-13] MEDS: HYDROCODONE/APAP (5/325) TAB PO PRN ×5 (08:08→21:19)
[2016-03-13] MEDS: BENAZEPRIL 10 MG TAB PO SCH (08:09)
[2016-03-13] MEDS: POLYETHYLENE GLYCOL 17 GM PACKET PO SCH (08:09)
[2016-03-13] MEDS: SALMETEROL/FLUTICASONE 250/50 INHA INH SCH ×2 (08:10→21:16)
[2016-03-13] MEDS: INSULIN ASPART [NOVOLOG] 3 ML PEN SC SCH ×4 (08:11→21:24)
[2016-03-13] MEDS: ENOXAPARIN 40 MG/0.4 ML SYG SC SCH (08:12)
[2016-03-13] MEDS: METHYLPREDNISOLONE 40 MG INJ IV SCH ×2 (08:17→21:18)
[2016-03-13] MEDS: FUROSEMIDE 20 MG INJ IV SCH (08:18)
[2016-03-13] MEDS: ISOSORBIDE DINITRATE 20 MG TAB PO SCH ×3 (08:18→21:22)
[2016-03-13] MEDS: LACTULOSE 30ML CUP PO SCH (08:18)
[2016-03-13] MEDS: ALBUTEROL/IPRATROPIUM (NEB) 3 ML AMP HHN SCH ×4 (08:22→21:39)
[2016-03-13] MEDS: METOPROLOL 50 MG TAB PO SCH ×2 (09:39→21:22)
[2016-03-13] MEDS: FINASTERIDE 5 MG TAB PO SCH (12:32)
--- NOTE | 2016-03-13 13:07 | CONS ---
Date/Time of Note Date/Time of Note DATE: 03/13/16 TIME: 13:04 Assessment/Plan Assessment/Plan Chief Complaint/Hosp Course IMPRESSION: 1. Shortness of breath, assess for congestive heart failure.-improving 2. Permanent pacemaker function. 3. Hypertension, under reasonable control on multiple oral antihypertensives. 4. Hypercapnic respiratory distress/chronic obstructive pulmonary disease exacerbation. 5. History of cardiomyopathy with mildly depressed left ventricular ejection fraction by most recent echo, 45% 01/26 6. Hypokalemia. 7. Anemia. 8. Leukocytosis. 9. chf-acute on chronic systolic and diastolic-improving volume status 10 11.H/O nstemi Recc: -tele -serial ecg's -Continue benazepril/procardia/BB/isordil and follow-up BP closely with further uptitration to benazepril to improve BP control -Continue bronchodilators/steroids -Follow volume status closely and continue gentle lasix diuresis as tolerated Problems: Consultation Date/Type/Reason Admit Date/Time Mar 03, 2016 at 17:24 Initial Consult Date 03/03/2016 Type of Consultation: Cardiology Reason for Consultation CHF/AF Referring Provider: GILLIAN GRIFFITH MD Exam/Review of Systems Vital Signs Vitals Vital Signs Date Time Temp Pulse Resp B/P Pulse Ox O2 Delivery O2 Flow Rate FiO2 03/13/16 12:13 78 03/13/16 12:10 98.4 18 143/69 92 03/13/16 09:00 Nasal Cannula 3.0 Intake and Output 03/12/16 03/12/16 03/13/16 15:00 23:00 07:00 Intake Total 100 ml 750 ml 300 ml Output Total 1300 ml 500 ml Balance 100 ml -550 ml -200 ml Exam Review of Systems: CONSTITUTIONAL: No fevers, chills. PULMONARY: mild sob/+cough CARDIOVASCULAR: No chest pain/palpitations GASTROINTESTINAL: No nausea/vomiting. GENITOURINARY: No hematuria/dysuria. MUSCULOSKELETAL: No myagias/arthalgias. PSYCHIATRIC: The patient denies depression. NEUROLOGIC: No weakness Constitutional: alert, oriented Psych: no complaints Head: normocephalic ENMT: mucosa pink and moist Neck: jvd (8 cm water), supple Respiratory: diminished breath sounds (at bases/B) Cardiovascular: regular rate and rhythm Gastrointestinal: non-tender Musculoskeletal: muscle tone (normal) Extremities: edema (trace) Results Result Diagram: 03/12/16 0545 Results 24 hrs Laboratory Tests Test 03/12/16 17:05 03/12/16 20:37 03/13/16 08:05 03/13/16 12:29 Bedside Glucose 354 H 253 H 284 H 266 H Medications Medications Current Medications Ascorbic Acid (Vitamin C) 500 mg DAILY PO Last administered on 03/13/16 08:08; Admin Dose 500 MG; Start 03/04/16 at 09:00 Aspirin (Halfprin) 81 mg DAILY PO Last administered on 03/13/16 08:08; Admin Dose 81 MG; Start 03/04/16 at 09:00 Atorvastatin Calcium (Lipitor) 10 mg QHS PO Last administered on 03/12/16at 20: 39; Admin Dose 10 MG; Start 03/03/16 at 21:00 Docusate Sodium (Colace) 100 mg BID PO Last administered on 03/13/16 08:08; Admin Dose 100 MG; Start 03/03/16 at 21:00 Finasteride (Proscar) 5 mg DAILY PO Last administered on 03/13/16 12:32; Admin Dose 5 MG; Start 03/04/16 at 09:00 Gabapentin (Neurontin) 100 mg TID PO Last administered on 03/13/16 12:31; Admin Dose 100 MG; Start 03/03/16 at 21:00 Ipratropium [place] (Atrovent Hfa) 2 puff Q6 INH Last administered on 03/13/16 12:32; Admin Dose 2 PUFF; Start 03/04/16 at 00:00 Isosorbide Dinitrate (Isordil) 20 mg TID PO Last administered on 03/13/16 12:31 ; Admin Dose 20 MG; Start 03/03/16 at 21:00 Lactobacillus Acidoph/Bulgaricus (Floranex) 1 tab BID PO Last administered on 08:08; Admin Dose 1 TAB; Start 03/03/16 at 22:00 Lactulose (Enulose) 20 gm DAILY PO Last administered on 03/13/16 08:18; Admin Dose 20 GM; Start 03/04/16 at 09:00 Al Hydrox/Mg Hydrox/Simethicone (Mag-Al Plus) 30 ml Q6H PRN PO DISTENSION/GAS/ BLOATING; Start 03/03/16 at 20:00 Multivitamins Therapeutic (Theragran) 1 tab DAILY PO Last administered on 08:08; Admin Dose 1 TAB; Start 03/04/16 at 09:00 Nifedipine (Procardia Xl) 30 mg BID PO Last administered on 03/13/16 08:08; Admin Dose 30 MG; Start 03/03/16 at 21:00 Nitroglycerin (Nitroglycerin (Sl Tab) 0.4 Mg) 1 tab [id number] PRN SL CHEST PAIN ; Start 03/03/16 at 20:00 Polyethylene Glycol (Miralax) 17 gm DAILY PO Last administered on 03/13/16 08: 09; Admin Dose 17 GM; Start 03/04/16 at 09:00 Potassium Chloride (Klor-Con 20) 20 meq DAILY PO Last administered on 03/13/16 08:08; Admin Dose 20 MEQ; Start 03/04/16 at 09:00 Quetiapine Fumarate (Seroquel) 25 mg Q8 PO Last administered on 03/13/16 06:29 ; Admin Dose 25 MG; Start 03/03/16 at 22:00 Salmeterol Xinafoate/ Fluticasone (Advair 250/50 Diskus) 1 inh BID INH Last administered on 03/13/16 08:10; Admin Dose 1 INH; Start 03/03/16 at 22:00 Zolpidem Tartrate (Ambien) 5 mg QHS PRN PO INSOMNIA Last administered on at 20:40; Admin Dose 5 MG; Start 03/03/16 at 20:00 Ondansetron HCl (Zofran Inj) 4 mg Q6H PRN IV NAUSEA AND/OR VOMITING Last administered on 03/08/16at 05:25; Admin Dose 4 MG; Start 03/03/16 at 20:00 Methylprednisolone Sodium Succinate (Solu-Medrol) 40 mg Q12 IV Last administered on 03/13/16 08:17; Admin Dose 40 MG; Start 03/03/16 at 21:00 Insulin Glargine (Lantus) 8 unit HS SC Last administered on 03/12/16at 20:42; Admin Dose 8 UNIT; Start 03/03/16 at 22:00 Pantoprazole (Protonix Tab) 40 mg DAILY@06 PO Last administered on 03/13/16 06: 30; Admin Dose 40 MG; Start 03/04/16 at 06:00 Miscellaneous Information 1 ea NOTE XX ; Start 03/03/16 at 21:00 Glucose (Glutose) 15 gm Q15M PRN PO DECREASED GLUCOSE; Start 03/03/16 at 21:00 Glucose (Glutose) 22.5 gm Q15M PRN PO DECREASED GLUCOSE; Start 03/03/16 at 21: 00 Dextrose (D50w Syringe) 25 ml Q15M PRN IV DECREASED GLUCOSE; Start 03/03/16 at 21:00 Dextrose (D50w Syringe) 50 ml Q15M PRN IV DECREASED GLUCOSE; Start 03/03/16 at 21:00 Glucagon (Glucagen) 1 mg Q15M PRN IM DECREASED GLUCOSE; Start 03/03/16 at 21: 00 Glucose 15 gm 15 gm Q15M PRN BUCCAL DECREASED GLUCOSE; Start 03/03/16 at 21:00 Levofloxacin/ Dextrose (Levaquin 500mg/ D5W 100 ml (Pmx)) 100 ml @ 100 mls/hr Q24H IVPB Last administered on 03/12/16at 13:59; Admin Dose 100 MLS/HR; Start 03/04/16 at 14:00 Metoprolol Tartrate (Lopressor) 50 mg BID PO Last administered on 03/13/16 09: 39; Admin Dose 50 MG; Start 03/04/16 at 21:00 Enoxaparin Sodium (Lovenox) 40 mg DAILY SC Last administered on 03/13/16 08:12 ; Admin Dose 40 MG; Start 03/05/16 at 09:00 Acetaminophen/ Hydrocodone Bitart ([place] (5/325)) 1 tab Q4 PRN PO PRN Last administered on 03/13/16 12:31; Admin Dose 1 TAB; Start 03/05/16 at 21:00 Diagnostic Test (Pha) (Accucheck) 1 ea 02 XX Last administered on 03/09/16at 02 :00; Admin Dose 1 EA; Start 03/07/16 at 02:00 Meclizine HCl (Antivert) 25 mg Q6 PO Last administered on 03/13/16 12:32; Admin Dose 25 MG; Start 03/07/16 at 13:14 Benazepril HCl (Lotensin) 10 mg Q12 PO Last administered on 03/13/16 08:09; Admin Dose 10 MG; Start 03/09/16 at 21:00 Furosemide (Lasix) 20 mg DAILY IV Last administered on 03/13/16 08:18; Admin Dose 20 MG; Start 03/13/16 at 09:00 VAISHNAVI BUTTS Mar 13, 2016 13:07
--- NOTE | 2016-03-13 13:10 | PN ---
Date/Time of Note Date/Time of Note DATE: 03/13/16 TIME: 13:06 Assessment/Plan VTE Prophylaxis VTE Prophylaxis Intervention: LMWH Lines/Catheters IV [facility]from [facility] Urinary Cath still in place: Yes Reason Cath still needed: skin wounds contaminated by urine Assessment/Plan Chief Complaint/Hosp Course 1. Acute hypercapnic respiratory failure - stable on o2 by NC 2. Chronic obstructive pulmonary disease with acute exacerbation - Continue bronchodilators. 3. Dehydration - monitor 4. Hypertension. - stable. 5. Diabetes mellitus type 2. - monitor blood sugar 6. Sick sinus syndrome status post pacemaker - per cardiology 7. Dementia/encephalopathy 8. pneumonia - IV antibiotics - ID consult Problems: Subjective 24 Hr Interval Summary Free Text/Dictation Patient notes some choking on swallowing. Exam/Review of Systems Vital Signs Vitals Vital Signs Date Time Temp Pulse Resp B/P Pulse Ox O2 Delivery O2 Flow Rate FiO2 03/13/16 12:13 78 03/13/16 12:10 98.4 18 143/69 92 03/13/16 09:00 Nasal Cannula 3.0 Intake and Output 03/12/16 03/12/16 03/13/16 15:00 23:00 07:00 Intake Total 100 ml 750 ml 300 ml Output Total 1300 ml 500 ml Balance 100 ml -550 ml -200 ml Exam Constitutional: alert, well developed Head: atraumatic, normocephalic Neck: supple Respiratory: clear to auscultation Cardiovascular: regular rate and rhythm Gastrointestinal: non-tender, soft Extremities: normal pulses Results Result Diagram: 03/12/16 0545 Results 24 hrs Laboratory Tests Test 03/12/16 17:05 03/12/16 20:37 03/13/16 08:05 03/13/16 12:29 Bedside Glucose 354 H 253 H 284 H 266 H Medications Medications Current Medications Ascorbic Acid (Vitamin C) 500 mg DAILY PO Last administered on 03/13/16 08:08; Admin Dose 500 MG; Start 03/04/16 at 09:00 Aspirin (Halfprin) 81 mg DAILY PO Last administered on 03/13/16 08:08; Admin Dose 81 MG; Start 03/04/16 at 09:00 Atorvastatin Calcium (Lipitor) 10 mg QHS PO Last administered on 03/12/16at 20: 39; Admin Dose 10 MG; Start 03/03/16 at 21:00 Docusate Sodium (Colace) 100 mg BID PO Last administered on 03/13/16 08:08; Admin Dose 100 MG; Start 03/03/16 at 21:00 Finasteride (Proscar) 5 mg DAILY PO Last administered on 03/13/16 12:32; Admin Dose 5 MG; Start 03/04/16 at 09:00 Gabapentin (Neurontin) 100 mg TID PO Last administered on 03/13/16 12:31; Admin Dose 100 MG; Start 03/03/16 at 21:00 Ipratropium [place] (Atrovent Hfa) 2 puff Q6 INH Last administered on 03/13/16 12:32; Admin Dose 2 PUFF; Start 03/04/16 at 00:00 Isosorbide Dinitrate (Isordil) 20 mg TID PO Last administered on 03/13/16 12:31 ; Admin Dose 20 MG; Start 03/03/16 at 21:00 Lactobacillus Acidoph/Bulgaricus (Floranex) 1 tab BID PO Last administered on 08:08; Admin Dose 1 TAB; Start 03/03/16 at 22:00 Lactulose (Enulose) 20 gm DAILY PO Last administered on 03/13/16 08:18; Admin Dose 20 GM; Start 03/04/16 at 09:00 Al Hydrox/Mg Hydrox/Simethicone (Mag-Al Plus) 30 ml Q6H PRN PO DISTENSION/GAS/ BLOATING; Start 03/03/16 at 20:00 Multivitamins Therapeutic (Theragran) 1 tab DAILY PO Last administered on 08:08; Admin Dose 1 TAB; Start 03/04/16 at 09:00 Nifedipine (Procardia Xl) 30 mg BID PO Last administered on 03/13/16 08:08; Admin Dose 30 MG; Start 03/03/16 at 21:00 Nitroglycerin (Nitroglycerin (Sl Tab) 0.4 Mg) 1 tab [id number] PRN SL CHEST PAIN ; Start 03/03/16 at 20:00 Polyethylene Glycol (Miralax) 17 gm DAILY PO Last administered on 03/13/16 08: 09; Admin Dose 17 GM; Start 03/04/16 at 09:00 Potassium Chloride (Klor-Con 20) 20 meq DAILY PO Last administered on 03/13/16 08:08; Admin Dose 20 MEQ; Start 03/04/16 at 09:00 Quetiapine Fumarate (Seroquel) 25 mg Q8 PO Last administered on 03/13/16 06:29 ; Admin Dose 25 MG; Start 03/03/16 at 22:00 Salmeterol Xinafoate/ Fluticasone (Advair 250/50 Diskus) 1 inh BID INH Last administered on 03/13/16 08:10; Admin Dose 1 INH; Start 03/03/16 at 22:00 Zolpidem Tartrate (Ambien) 5 mg QHS PRN PO INSOMNIA Last administered on at 20:40; Admin Dose 5 MG; Start 03/03/16 at 20:00 Ondansetron HCl (Zofran Inj) 4 mg Q6H PRN IV NAUSEA AND/OR VOMITING Last administered on 03/08/16at 05:25; Admin Dose 4 MG; Start 03/03/16 at 20:00 Methylprednisolone Sodium Succinate (Solu-Medrol) 40 mg Q12 IV Last administered on 03/13/16 08:17; Admin Dose 40 MG; Start 03/03/16 at 21:00 Insulin Glargine (Lantus) 8 unit HS SC Last administered on 03/12/16at 20:42; Admin Dose 8 UNIT; Start 03/03/16 at 22:00 Pantoprazole (Protonix Tab) 40 mg DAILY@06 PO Last administered on 03/13/16 06: 30; Admin Dose 40 MG; Start 03/04/16 at 06:00 Miscellaneous Information 1 ea NOTE XX ; Start 03/03/16 at 21:00 Glucose (Glutose) 15 gm Q15M PRN PO DECREASED GLUCOSE; Start 03/03/16 at 21:00 Glucose (Glutose) 22.5 gm Q15M PRN PO DECREASED GLUCOSE; Start 03/03/16 at 21: 00 Dextrose (D50w Syringe) 25 ml Q15M PRN IV DECREASED GLUCOSE; Start 03/03/16 at 21:00 Dextrose (D50w Syringe) 50 ml Q15M PRN IV DECREASED GLUCOSE; Start 03/03/16 at 21:00 Glucagon (Glucagen) 1 mg Q15M PRN IM DECREASED GLUCOSE; Start 03/03/16 at 21: 00 Glucose 15 gm 15 gm Q15M PRN BUCCAL DECREASED GLUCOSE; Start 03/03/16 at 21:00 Levofloxacin/ Dextrose (Levaquin 500mg/ D5W 100 ml (Pmx)) 100 ml @ 100 mls/hr Q24H IVPB Last administered on 03/12/16at 13:59; Admin Dose 100 MLS/HR; Start 03/04/16 at 14:00 Metoprolol Tartrate (Lopressor) 50 mg BID PO Last administered on 03/13/16 09: 39; Admin Dose 50 MG; Start 03/04/16 at 21:00 Enoxaparin Sodium (Lovenox) 40 mg DAILY SC Last administered on 03/13/16 08:12 ; Admin Dose 40 MG; Start 03/05/16 at 09:00 Acetaminophen/ Hydrocodone Bitart ([place] (5/325)) 1 tab Q4 PRN PO PRN Last administered on 03/13/16 12:31; Admin Dose 1 TAB; Start 03/05/16 at 21:00 Diagnostic Test (Pha) (Accucheck) 1 ea 02 XX Last administered on 03/09/16at 02 :00; Admin Dose 1 EA; Start 03/07/16 at 02:00 Meclizine HCl (Antivert) 25 mg Q6 PO Last administered on 03/13/16 12:32; Admin Dose 25 MG; Start 03/07/16 at 13:14 Benazepril HCl (Lotensin) 10 mg Q12 PO Last administered on 03/13/16 08:09; Admin Dose 10 MG; Start 03/09/16 at 21:00 Furosemide (Lasix) 20 mg DAILY IV Last administered on 03/13/16 08:18; Admin Dose 20 MG; Start 03/13/16 at 09:00 GAYE LUO Mar 13, 2016 13:10
[2016-03-13] MEDS ORDERED: TRIMETHOPRIM/SULFAMETHOX (DS) TAB NGT SCH (21:00)
[2016-03-13] MEDS: ATORVASTATIN 10 MG TAB PO SCH (21:19)
[2016-03-13] MEDS: ZOLPIDEM 5 MG TAB PO PRN (21:19)
[2016-03-13] MEDS: INSULIN GLARGINE [LANtus] 3 ML PEN SC SCH (21:24)
[2016-03-13] MEDS: TRIMETHOPRIM/SULFAMETHOX (PO SYG) PO SCH (21:37)
[2016-03-14] VITALS (12 sets, daily range): BP systolic 125–160; BP diastolic 57–92; PULSE 90–100; RESP 16–20
[2016-03-14] MEDS: IPRATROPIUM (HFA) 12.9 GM INHALER INH SCH ×5 (00:07→23:34)
[2016-03-14] MEDS: MECLIZINE 12.5 MG TAB PO SCH ×5 (00:07→23:32)
[2016-03-14] MEDS: HYDROCODONE/APAP (5/325) TAB PO PRN ×6 (01:15→22:12)
[2016-03-14] MEDS: ACCUCHECK XX SCH (02:00)
[2016-03-14] MEDS: QUETIAPINE 25 MG TAB PO SCH ×3 (06:05→21:06)
[2016-03-14] MEDS: PANTOPRAZOLE (EC) 40 MG TAB PO SCH (06:05)
[2016-03-14] MEDS: INSULIN ASPART [NOVOLOG] 3 ML PEN SC SCH ×4 (08:21→21:21)
[2016-03-14] MEDS: SALMETEROL/FLUTICASONE 250/50 INHA INH SCH ×2 (08:21→21:02)
[2016-03-14] MEDS: METHYLPREDNISOLONE 40 MG INJ IV SCH ×2 (08:27→21:02)
[2016-03-14] MEDS: FUROSEMIDE 20 MG INJ IV SCH (08:27)
[2016-03-14] MEDS: DOCUSATE SODIUM 100 MG CAP PO SCH ×2 (08:29→20:59)
[2016-03-14] MEDS: LACTULOSE 30ML CUP PO SCH (08:31)
[2016-03-14] MEDS: LACTOBACILLUS CHEW TAB PO SCH ×2 (08:31→21:23)
[2016-03-14] MEDS: ISOSORBIDE DINITRATE 20 MG TAB PO SCH ×3 (08:32→21:00)
[2016-03-14] MEDS: ASPIRIN (EC) 81 MG TAB PO SCH (08:32)
[2016-03-14] MEDS: METOPROLOL 50 MG TAB PO SCH ×2 (08:33→21:01)
[2016-03-14] MEDS: POTASSIUM CHLORIDE (SR) 20 MEQ TAB PO SCH (08:33)
[2016-03-14] MEDS: POLYETHYLENE GLYCOL 17 GM PACKET PO SCH (08:34)
[2016-03-14] MEDS: BENAZEPRIL 20 MG TAB PO SCH ×2 (08:34→21:00)
[2016-03-14] MEDS: NIFEdipine (XL) 30 MG TAB PO SCH ×2 (08:35→21:01)
[2016-03-14] MEDS: GABAPENTIN 100 MG CAP PO SCH ×3 (08:35→20:59)
[2016-03-14] MEDS: MULTIVITAMINS THERAPEUTIC TAB PO SCH (08:35)
[2016-03-14] MEDS: ASCORBIC ACID 500 MG TAB PO SCH (08:36)
[2016-03-14] MEDS: ENOXAPARIN 40 MG/0.4 ML SYG SC SCH (08:40)
[2016-03-14] MEDS: FINASTERIDE 5 MG TAB PO SCH ×2 (09:00→11:53)
[2016-03-14] MEDS: TRIMETHOPRIM/SULFAMETHOX (PO SYG) PO SCH ×2 (09:53→21:01)
[2016-03-14] MEDS: ALBUTEROL/IPRATROPIUM (NEB) 3 ML AMP HHN SCH ×4 (09:56→21:00)
--- NOTE | 2016-03-14 12:14 | CONS ---
Date/Time of Note Date/Time of Note DATE: 03/14/16 TIME: 12:10 Assessment/Plan Assessment/Plan Chief Complaint/Hosp Course IMPRESSION: 1. Shortness of breath, assess for congestive heart failure.-improving 2. Permanent pacemaker function. 3. Hypertension, under reasonable control on multiple oral antihypertensives. 4. Hypercapnic respiratory distress/chronic obstructive pulmonary disease exacerbation. 5. History of cardiomyopathy with mildly depressed left ventricular ejection fraction by most recent echo, 45% 01/26 6. Hypokalemia. 7. Anemia. 8. Leukocytosis. 9. 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 -Continue benazepril/procardia/BB/isordil and follow-up BP closely with possible need to slowly further increase benazepril -Continue bronchodilators/steroids/abx's Problems: Consultation Date/Type/Reason Admit Date/Time Mar 03, 2016 at 17:24 Initial Consult Date 03/03/2016 Type of Consultation: Cardiology Reason for Consultation CHF/AF/PPM Referring Provider: GILLIAN GRIFFITH MD Exam/Review of Systems Vital Signs Vitals Vital Signs Date Time Temp Pulse Resp B/P Pulse Ox O2 Delivery O2 Flow Rate FiO2 03/14/16 12:01 99.0 90 20 136/77 93 03/14/16 09:56 Nasal Cannula 3.0 Exam Review of Systems: CONSTITUTIONAL: No fevers, chills. PULMONARY: Positive cough CARDIOVASCULAR: No chest pain/palpitations GASTROINTESTINAL: No nausea/vomiting. GENITOURINARY: No hematuria/dysuria. MUSCULOSKELETAL: No myagias/arthalgias. PSYCHIATRIC: The patient denies depression. NEUROLOGIC: No weakness Constitutional: alert Psych: no complaints Head: normocephalic ENMT: mucosa pink and moist Neck: jvd (9 cm water), supple Respiratory: diminished breath sounds (at bases/B) Cardiovascular: regular rate and rhythm Gastrointestinal: non-tender, soft Musculoskeletal: muscle tone (normal) Extremities: edema (none) Neurological: other (No focal deficits) Results Result Diagram: 03/12/16 0545 Results 24 hrs Laboratory Tests Test 03/13/16 12:29 03/13/16 16:47 03/13/16 21:21 03/14/16 07:46 Bedside Glucose 266 H 176 309 H 245 H Test 03/14/16 11:52 Bedside Glucose 241 H Medications Medications Current Medications Ascorbic Acid (Vitamin C) 500 mg DAILY PO Last administered on 03/14/16 08:36; Admin Dose 500 MG; Start 03/04/16 at 09:00 Aspirin (Halfprin) 81 mg DAILY PO Last administered on 03/14/16 08:32; Admin Dose 81 MG; Start 03/04/16 at 09:00 Atorvastatin Calcium (Lipitor) 10 mg QHS PO Last administered on 03/13/16 21:19 ; Admin Dose 10 MG; Start 03/03/16 at 21:00 Docusate Sodium (Colace) 100 mg BID PO Last administered on 03/14/16 08:29; Admin Dose 100 MG; Start 03/03/16 at 21:00 Finasteride (Proscar) 5 mg DAILY PO Last administered on 03/14/16 11:53; Admin Dose 5 MG; Start 03/04/16 at 09:00 Gabapentin (Neurontin) 100 mg TID PO Last administered on 03/14/16 08:35; Admin Dose 100 MG; Start 03/03/16 at 21:00 Ipratropium [place] (Atrovent Hfa) 2 puff Q6 INH Last administered on 03/14/16 06:05; Admin Dose 2 PUFF; Start 03/04/16 at 00:00 Isosorbide Dinitrate (Isordil) 20 mg TID PO Last administered on 03/14/16 08:32 ; Admin Dose 20 MG; Start 03/03/16 at 21:00 Lactobacillus Acidoph/Bulgaricus (Floranex) 1 tab BID PO Last administered on 08:31; Admin Dose 1 TAB; Start 03/03/16 at 22:00 Lactulose (Enulose) 20 gm DAILY PO Last administered on 03/13/16 08:18; Admin Dose 20 GM; Start 03/04/16 at 09:00 Al Hydrox/Mg Hydrox/Simethicone (Mag-Al Plus) 30 ml Q6H PRN PO DISTENSION/GAS/ BLOATING; Start 03/03/16 at 20:00 Multivitamins Therapeutic (Theragran) 1 tab DAILY PO Last administered on 08:35; Admin Dose 1 TAB; Start 03/04/16 at 09:00 Nifedipine (Procardia Xl) 30 mg BID PO Last administered on 03/14/16 08:35; Admin Dose 30 MG; Start 03/03/16 at 21:00 Nitroglycerin (Nitroglycerin (Sl Tab) 0.4 Mg) 1 tab [id number] PRN SL CHEST PAIN ; Start 03/03/16 at 20:00 Polyethylene Glycol (Miralax) 17 gm DAILY PO Last administered on 03/14/16 08: 34; Admin Dose 17 GM; Start 03/04/16 at 09:00 Potassium Chloride (Klor-Con 20) 20 meq DAILY PO Last administered on 03/14/16 08:33; Admin Dose 20 MEQ; Start 03/04/16 at 09:00 Quetiapine Fumarate (Seroquel) 25 mg Q8 PO Last administered on 03/14/16 06:05 ; Admin Dose 25 MG; Start 03/03/16 at 22:00 Salmeterol Xinafoate/ Fluticasone (Advair 250/50 Diskus) 1 inh BID INH Last administered on 03/14/16 08:21; Admin Dose 1 INH; Start 03/03/16 at 22:00 Zolpidem Tartrate (Ambien) 5 mg QHS PRN PO INSOMNIA Last administered on 21:19; Admin Dose 5 MG; Start 03/03/16 at 20:00 Ondansetron HCl (Zofran Inj) 4 mg Q6H PRN IV NAUSEA AND/OR VOMITING Last administered on 03/08/16at 05:25; Admin Dose 4 MG; Start 03/03/16 at 20:00 Methylprednisolone Sodium Succinate (Solu-Medrol) 40 mg Q12 IV Last administered on 03/14/16 08:27; Admin Dose 40 MG; Start 03/03/16 at 21:00 Insulin Glargine (Lantus) 8 unit HS SC Last administered on 03/13/16 21:24; Admin Dose 8 UNIT; Start 03/03/16 at 22:00 Pantoprazole (Protonix Tab) 40 mg DAILY@06 PO Last administered on 03/14/16 06: 05; Admin Dose 40 MG; Start 03/04/16 at 06:00 Miscellaneous Information 1 ea NOTE XX ; Start 03/03/16 at 21:00 Glucose (Glutose) 15 gm Q15M PRN PO DECREASED GLUCOSE; Start 03/03/16 at 21:00 Glucose (Glutose) 22.5 gm Q15M PRN PO DECREASED GLUCOSE; Start 03/03/16 at 21: 00 Dextrose (D50w Syringe) 25 ml Q15M PRN IV DECREASED GLUCOSE; Start 03/03/16 at 21:00 Dextrose (D50w Syringe) 50 ml Q15M PRN IV DECREASED GLUCOSE; Start 03/03/16 at 21:00 Glucagon (Glucagen) 1 mg Q15M PRN IM DECREASED GLUCOSE; Start 03/03/16 at 21: 00 Glucose (Glutose) 15 gm Q15M PRN BUCCAL DECREASED GLUCOSE; Start 03/03/16 at 21:00 Metoprolol Tartrate (Lopressor) 50 mg BID PO Last administered on 03/14/16 08: 33; Admin Dose 50 MG; Start 03/04/16 at 21:00 Enoxaparin Sodium (Lovenox) 40 mg DAILY SC Last administered on 03/14/16 08:40 ; Admin Dose 40 MG; Start 03/05/16 at 09:00 Acetaminophen/ Hydrocodone Bitart ([place] (5/325)) 1 tab Q4 PRN PO PRN Last administered on 03/14/16 09:53; Admin Dose 1 TAB; Start 03/05/16 at 21:00 Diagnostic Test (Pha) (Accucheck) 1 ea 02 XX Last administered on 03/09/16at 02 :00; Admin Dose 1 EA; Start 03/07/16 at 02:00 Meclizine HCl (Antivert) 25 mg Q6 PO Last administered on 03/14/16 11:54; Admin Dose 25 MG; Start 03/07/16 at 13:14 Furosemide (Lasix) 20 mg DAILY IV Last administered on 03/14/16 08:27; Admin Dose 20 MG; Start 03/13/16 at 09:00 Benazepril HCl (Lotensin) 20 mg Q12 PO Last administered on 03/14/16 08:34; Admin Dose 20 MG; Start 03/14/16 at 09:00 Trimethoprim/ Sulfamethoxazole (Bactrim Susp) 20 ml BID PO Last administered on 03/14/16 09:53; Admin Dose 20 ML; Start 03/13/16 at 21:00 VAISHNAVI BUTTS Mar 14, 2016 12:14
[2016-03-14] MEDS ORDERED: GUAIFENESIN/DM 5ML CUP PO PRN (12:30)
--- NOTE | 2016-03-14 14:14 | DS ---
Date/Time of Note Date/Time of Note DATE: 03/14/16 TIME: 14:12 Discharge Summary Admission/Discharge Info Admit Date/Time Mar 03, 2016 at 17:24 Discharge Date/Time Final Diagnosis 1) CHF 2) COPD 3) CAD Patient Condition: Fair Consults cardiology pulmonary Hx of Present Illness ALOC (STEPHEN MALDONADO MD) HPI 75-year-old man [facility] for shortness of breath and cough. He has been feeling weak today as well he denies confusion, denies chest pain, no calf or leg swelling, no headache or blurry vision. Patient denies fever although was recently admitted for pneumonia. Patient was transported here by EMS without further complication. HPI supplemented by reviewing past medical history, [facility] records, speaking to EMS, nursing staff. (STEPHEN MALDONADO MD) ROS All systems reviewed and are negative except as per history of present illness. (STEPHEN MALDONADO MD) Medications Home Meds Reported Medications Acetaminophen* (Acetaminophen*) 650 Mg Tablet, 650 MG PO Q4H WHILE AWAKE Y for PAIN AND OR ELEVATED TEMP, #30 TAB 03/03/16 Protein Supplement (Promod) 946 Ml Liquid, 30 ML PO TID 03/03/16 Lansoprazole* (Lansoprazole*) 30 Mg Capsule.dr, 30 MG PO DAILY, CAP 03/03/16 Prednisone* (Prednisone*) 20 Mg Tab, 40 MG PO DAILY, TAB STARTED 03-03-16 STOPED ON 03-08-16 03/03/16 Potassium Chloride* (Potassium Chloride*) 20 Meq Tablet.er, 20 MEQ PO DAILY, TAB.SA 03/03/16 Oxycodone HCl/Acetaminophen (Percocet 5-325 mg Tablet) 1 Each Tablet, 1 EACH PO Q4H WHILE AWAKE Y for MODERATE PAIN LEVEL 4-6, TAB 03/03/16 Nitroglycerin* (Nitrostat*) 0.4 Mg Tab.subl, 0.4 MG SL Q5MIN Y for CHEST PAIN, BOTTLE 03/03/16 Nifedipine* (Nifedipine ER*) 30 Mg Tablet.sa, 30 MG PO BID, TAB.SA 03/03/16 Polyethylene Glycol* (Miralax*) 17 Gm Powd.pack, 17 GM PO DAILY, #30 PACKET 03/03/16 Mag Hydrox/Al Hydrox/Simeth (Maalox Advanced Suspension) 355 Ml Oral.susp, 30 ML PO Q6 Y for DISTENSION/GAS/BLOATING 03/03/16 Metoprolol Tartrate* (Lopressor*) 25 Mg Tab, 75 MG PO BID, #180 TAB 03/03/16 Levofloxacin* (Levaquin*) 500 Mg Tablet, 500 MG PO DAILY, TAB STARTED 03/02/16 STOP 03/13/16 03/03/16 Lactulose* (Lactulose*) 20 Gm/30 Ml Solution, 20 GM PO DAILY, ML 03/03/16 Isosorbide Dinitrate* (Isosorbide Dinitrate*) 20 Mg Tablet, 20 MG PO TID, TAB 03/03/16 Insulin Glargine* (Lantus*) 100 Unit/Ml Soln, 7 UNIT SC QHS, #1 VIAL 03/03/16 Insulin Aspart* (Novolog Insulin Pen*) 100 Unit/Ml Soln, 3 UNIT SC AC MEALS, EA 03/03/16 Gabapentin* (Gabapentin*) 100 Mg Capsule, 100 MG PO TID, #90 CAP 03/03/16 Docusate Sodium* (Colace*) 100 Mg Capsule, 100 MG PO BID, #60 CAP 03/03/16 Aspirin (Low Dose Aspirin) 81 Mg Tablet.dr, 81 MG PO DAILY, #30 TAB 03/03/16 Ascorbic Acid* (Ascorbic Acid*) 500 Mg/5 Ml Syrup, 500 MG PO DAILY, #150 ML 03/03/16 Zolpidem Tartrate* (Ambien*) 5 Mg Tablet, 5 MG PO QHS Y for INSOMNIA, #30 TAB 03/03/16 Lorazepam* (Lorazepam*) 0.5 Mg Tablet, 0.5 MG PO Q6, TAB 01/25/16 Quetiapine Fumarate* (Seroquel*) 25 Mg Tablet, 25 MG PO Q8, #90 TAB 01/25/16 Benazepril Hcl* (Benazepril Hcl*) 5 Mg Tablet, 5 MG PO Q12, #60 TAB 01/25/16 Finasteride* (Proscar*) 5 Mg Tablet, 5 MG PO DAILY, TAB 01/25/16 Lactobacillus Acidoph/Bulgaricus* (Floranex*) 1 Each Tablet, 1 TAB.CHEW PO BID, TAB.CHEW 01/25/16 Ipratropium [place]* (Atrovent HFA*) 12.9 Gm Aer.w.adap, 2 PUFF INHALATION Q6, # 1 INHALER 01/25/16 Atorvastatin Calcium (Atorvastatin Calcium) 10 Mg Tablet, 10 MG PO QHS, #30 TAB 01/25/16 Salmeterol Xinaf/Fluticasone* (Advair*) 250-50 Diskus Inhaler, 1 INH INHALATION BID, #1 INHALER 01/25/16 Multivitamins* (Theragran*) 1 Tab Tab, 1 TAB PO DAILY, TAB 01/25/16 Hydrocodone/Acetaminophen ([place] 5-325 Tablet) 1 Each Tablet, 1 EACH PO Q6H Y for PRN, TAB 01/25/16 Discontinued Reported Medications Temazepam* (Restoril*) 15 Mg Capsule, 15 MG PO HS Y for INSOMNIA, CAP 01/25/16 Aspirin* (Aspirin* EC) 81 Mg Tablet.dr, 81 MG PO DAILY, TAB 01/25/16 Pantoprazole* (Protonix*) 40 Mg Tablet.dr, 40 MG PO DAILY, TAB 01/25/16 Metoprolol Succinate* (Toprol XL*) 25 Mg Tab.sr.24h, 12.5 MG PO Q12, #30 TAB 01/25/16 Meclizine Hcl* (Meclizine Hcl*) 25 Mg Tablet, 25 MG PO Q8H Y for DIZZINESS, TAB 01/25/16 Gabapentin* (Neurontin*) 300 Mg Capsule, 300 MG PO Q8, #90 CAP 01/25/16 Albuterol Sulfate* (Albuterol Sulfate* Neb) 0.083%-3 Ml Neb, 2.5 MG NEB Q6, #30 VIAL 01/25/16 Insulin NPH Human Isophane (Humulin N) 100 Unit/1 Ml Vial, SQ SLIDING SCALE, VIAL 01/25/16 Allergies Allergies: Coded Allergies: No Known Drug Allergy (Verified Allergy, Unknown, 03/03/16) Hospital Course Patient comes in with sob related to CHF. Patient also found to have mild pneumonia and so was treated with antibiotics. Patient slowly improved but now is stable to return back to the [facility]. IMPRESSION: 1. Shortness of breath, assess for congestive heart failure.-improving 2. Permanent pacemaker function. 3. Hypertension, under reasonable control on multiple oral antihypertensives. 4. Hypercapnic respiratory distress/chronic obstructive pulmonary disease exacerbation. 5. History of cardiomyopathy with mildly depressed left ventricular ejection fraction by most recent echo, 45% 01/26 6. Hypokalemia. 7. Anemia. 8. Leukocytosis. 9. 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 12.COPD Recc: -tele -serial ecg's -change lasix to PO and follow volume status and supervisor microwave closely -Continue benazepril/procardia/BB/isordil and follow-up BP closely with possible need to slowly further increase benazepril -Continue bronchodilators/steroids/abx's Home Meds Reported Medications Acetaminophen* (Acetaminophen*) 650 Mg Tablet, 650 MG PO Q4H WHILE AWAKE Y for PAIN AND OR ELEVATED TEMP, #30 TAB 03/03/16 Protein Supplement (Promod) 946 Ml Liquid, 30 ML PO TID 03/03/16 Lansoprazole* (Lansoprazole*) 30 Mg Capsule.dr, 30 MG PO DAILY, CAP 03/03/16 Prednisone* (Prednisone*) 20 Mg Tab, 40 MG PO DAILY, TAB STARTED 03-03-16 STOPED ON 03-08-16 03/03/16 Potassium Chloride* (Potassium Chloride*) 20 Meq Tablet.er, 20 MEQ PO DAILY, TAB.SA 03/03/16 Oxycodone HCl/Acetaminophen (Percocet 5-325 mg Tablet) 1 Each Tablet, 1 EACH PO Q4H WHILE AWAKE Y for MODERATE PAIN LEVEL 4-6, TAB 03/03/16 Nitroglycerin* (Nitrostat*) 0.4 Mg Tab.subl, 0.4 MG SL Q5MIN Y for CHEST PAIN, BOTTLE 03/03/16 Nifedipine* (Nifedipine ER*) 30 Mg Tablet.sa, 30 MG PO BID, TAB.SA 03/03/16 Polyethylene Glycol* (Miralax*) 17 Gm Powd.pack, 17 GM PO DAILY, #30 PACKET 03/03/16 Mag Hydrox/Al Hydrox/Simeth (Maalox Advanced Suspension) 355 Ml Oral.susp, 30 ML PO Q6 Y for DISTENSION/GAS/BLOATING 03/03/16 Metoprolol Tartrate* (Lopressor*) 25 Mg Tab, 75 MG PO BID, #180 TAB 03/03/16 Levofloxacin* (Levaquin*) 500 Mg Tablet, 500 MG PO DAILY, TAB STARTED 03/02/16 STOP 03/13/16 03/03/16 Lactulose* (Lactulose*) 20 Gm/30 Ml Solution, 20 GM PO DAILY, ML 03/03/16 Isosorbide Dinitrate* (Isosorbide Dinitrate*) 20 Mg Tablet, 20 MG PO TID, TAB 03/03/16 Insulin Glargine* (Lantus*) 100 Unit/Ml Soln, 7 UNIT SC QHS, #1 VIAL 03/03/16 Insulin Aspart* (Novolog Insulin Pen*) 100 Unit/Ml Soln, 3 UNIT SC AC MEALS, EA 03/03/16 Gabapentin* (Gabapentin*) 100 Mg Capsule, 100 MG PO TID, #90 CAP 03/03/16 Docusate Sodium* (Colace*) 100 Mg Capsule, 100 MG PO BID, #60 CAP 03/03/16 Aspirin (Low Dose Aspirin) 81 Mg Tablet.dr, 81 MG PO DAILY, #30 TAB 03/03/16 Ascorbic Acid* (Ascorbic Acid*) 500 Mg/5 Ml Syrup, 500 MG PO DAILY, #150 ML 03/03/16 Zolpidem Tartrate* (Ambien*) 5 Mg Tablet, 5 MG PO QHS Y for INSOMNIA, #30 TAB 03/03/16 Lorazepam* (Lorazepam*) 0.5 Mg Tablet, 0.5 MG PO Q6, TAB 01/25/16 Quetiapine Fumarate* (Seroquel*) 25 Mg Tablet, 25 MG PO Q8, #90 TAB 01/25/16 Benazepril Hcl* (Benazepril Hcl*) 5 Mg Tablet, 5 MG PO Q12, #60 TAB 01/25/16 Finasteride* (Proscar*) 5 Mg Tablet, 5 MG PO DAILY, TAB 01/25/16 Lactobacillus Acidoph/Bulgaricus* (Floranex*) 1 Each Tablet, 1 TAB.CHEW PO BID, TAB.CHEW 01/25/16 Ipratropium [place]* (Atrovent HFA*) 12.9 Gm Aer.w.adap, 2 PUFF INHALATION Q6, # 1 INHALER 01/25/16 Atorvastatin Calcium (Atorvastatin Calcium) 10 Mg Tablet, 10 MG PO QHS, #30 TAB 01/25/16 Salmeterol Xinaf/Fluticasone* (Advair*) 250-50 Diskus Inhaler, 1 INH INHALATION BID, #1 INHALER 01/25/16 Multivitamins* (Theragran*) 1 Tab Tab, 1 TAB PO DAILY, TAB 01/25/16 Hydrocodone/Acetaminophen ([place] 5-325 Tablet) 1 Each Tablet, 1 EACH PO Q6H Y for PRN, TAB 01/25/16 Pending Labs Laboratory Tests Test 03/13/16 16:47 03/13/16 21:21 03/14/16 07:46 03/14/16 11:52 Bedside Glucose 176mg/dL (70-220) 309mg/dL (70-220) 245mg/dL (70-220) 241mg/dL (70-220) GAYE LUO Mar 14, 2016 14:14
[2016-03-14 14:32] LABS: HEMATOCRIT 35.7 % (42.0-52.0); HEMOGLOBIN 11.6 g/dl (14.0-18.0); MEAN CORPUSCULAR HEMOGLOBIN 28.8 pg (29.0-33.0); MEAN CORPUSCULAR HGB CONC 32.5 g/dl (32.0-37.0); MEAN CORPUSCULAR VOLUME 88.8 fl (82.0-101.0); MEAN PLATELET VOLUME 8.4 fl (7.4-10.4); PLATELET COUNT 456 10^3/UL (140-440); RED BLOOD COUNT 4.02 10^6/ul (4.70-6.10); UNCORRECTED WBC 30.7 10^3/ul (4.8-10.8); WHITE BLOOD COUNT 30.7 10^3/ul (4.8-10.8)
[2016-03-14 14:37] LABS: CONDITION 1; LH ANALYZER COMMENTS 1; SUSPECT 1
[2016-03-14 14:38] LABS: CREATININE 0.62 mg/dl (0.61-1.24)
[2016-03-14 14:39] LABS: CALCIUM 8.6 mg/dl (8.4-10.2)
[2016-03-14 15:02] LABS: ANISOCYTOSIS 1+; LYMPHOCYTES # 0.9 10^3/ul (0.8-2.9); MONOCYTE # 0.9 10^3/ul (0.3-0.9); NEUTROPHIL # 28.9 10^3/ul (1.6-7.5)
[2016-03-14 15:03] LABS: HYPOCHROMASIA 1+; PLATELET ESTIMATE PLT APPEAR INCREASED
[2016-03-14] MEDS: ATORVASTATIN 10 MG TAB PO SCH (21:00)
[2016-03-14] MEDS: INSULIN GLARGINE [LANtus] 3 ML PEN SC SCH (21:20)
[2016-03-14] MEDS: ZOLPIDEM 5 MG TAB PO PRN (22:12)
[2016-03-15] MEDS: ALBUTEROL/IPRATROPIUM (NEB) 3 ML AMP HHN SCH ×2 (01:10→11:33)
[2016-03-15] MEDS: ACCUCHECK XX SCH (02:00)
[2016-03-15 04:00] VITALS: BP 147/76; PULSE 74; RESP 18
[2016-03-15] MEDS: QUETIAPINE 25 MG TAB PO SCH (05:33)
[2016-03-15] MEDS: MECLIZINE 12.5 MG TAB PO SCH ×2 (05:34→10:35)
[2016-03-15] MEDS: PANTOPRAZOLE (EC) 40 MG TAB PO SCH (05:34)
[2016-03-15] MEDS: HYDROCODONE/APAP (5/325) TAB PO PRN ×2 (05:40→09:49)
[2016-03-15] MEDS: IPRATROPIUM (HFA) 12.9 GM INHALER INH SCH ×2 (05:43→12:11)
[2016-03-15 07:55] VITALS: BP 136/68; RESP 20
[2016-03-15] MEDS: MULTIVITAMINS THERAPEUTIC TAB PO SCH (08:40)
[2016-03-15] MEDS: FINASTERIDE 5 MG TAB PO SCH (08:40)
[2016-03-15] MEDS: BENAZEPRIL 20 MG TAB PO SCH (08:40)
[2016-03-15] MEDS: ASCORBIC ACID 500 MG TAB PO SCH (08:41)
[2016-03-15] MEDS: METOPROLOL 50 MG TAB PO SCH (08:41)
[2016-03-15] MEDS: POTASSIUM CHLORIDE (SR) 20 MEQ TAB PO SCH (08:41)
[2016-03-15] MEDS: ASPIRIN (EC) 81 MG TAB PO SCH (08:41)
[2016-03-15] MEDS: NIFEdipine (XL) 30 MG TAB PO SCH (08:42)
[2016-03-15] MEDS: LACTOBACILLUS CHEW TAB PO SCH (08:42)
[2016-03-15] MEDS: ISOSORBIDE DINITRATE 20 MG TAB PO SCH ×2 (08:42→12:12)
[2016-03-15] MEDS: DOCUSATE SODIUM 100 MG CAP PO SCH (08:42)
[2016-03-15] MEDS: GABAPENTIN 100 MG CAP PO SCH ×2 (08:42→12:12)
[2016-03-15] MEDS: TRIMETHOPRIM/SULFAMETHOX (PO SYG) PO SCH (08:43)
[2016-03-15] MEDS: SALMETEROL/FLUTICASONE 250/50 INHA INH SCH (08:43)
[2016-03-15] MEDS: LACTULOSE 30ML CUP PO SCH (08:43)
[2016-03-15] MEDS: METHYLPREDNISOLONE 40 MG INJ IV SCH (08:43)
[2016-03-15] MEDS: POLYETHYLENE GLYCOL 17 GM PACKET PO SCH (08:45)
[2016-03-15] MEDS: ENOXAPARIN 40 MG/0.4 ML SYG SC SCH (08:58)
[2016-03-15] MEDS: INSULIN ASPART [NOVOLOG] 3 ML PEN SC SCH ×2 (08:59→12:18)
[2016-03-15] MEDS ORDERED: FUROSEMIDE 20 MG TAB PO SCH (09:00)
--- NOTE | 2016-03-15 11:34 | CONS ---
Date/Time of Note Date/Time of Note DATE: 03/15/16 TIME: 11:33 Assessment/Plan Assessment/Plan Additional Assessment/Plan 1. Shortness of breath, assess for congestive heart failure.-improving - better now. 2. Permanent pacemaker - no evidence of malfunction. 3. Hypertension, under reasonable control on multiple oral antihypertensives. Better now. 4. Hypercapnic respiratory distress/chronic obstructive pulmonary disease exacerbation. 5. History of cardiomyopathy with mildly depressed left ventricular ejection fraction by most recent echo, 45% 01/26 6. Hypokalemia. 7. Anemia- H/H stable - no bleeding noted. 8. Leukocytosis. 9. 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 Off tele now. ROS: No fever, no chills, no nausea, no vomiting, no diarrhea/constipation No recent weight changes No chest pain, no PND, no orthopnea +SOB, stable No dizziness, blurred vision No thirst, no heat or cold intolerance Exam/Review of Systems Vital Signs Vitals Vital Signs Date Time Temp Pulse Resp B/P Pulse Ox O2 Delivery O2 Flow Rate FiO2 03/15/16 07:55 98.7 82 20 136/68 91 03/15/16 04:00 Nasal Cannula 3.0 Intake and Output 03/14/16 03/14/16 03/15/16 15:00 23:00 07:00 Intake Total 720 ml 240 ml Output Total 1250 ml 300 ml Balance -530 ml -60 ml Exam General: WN/WD/NAD, AOx 3 HEENT: Unicetric/atraumatic/EOMI (follow commands) NECK: JVD elevated, no thyromegaly Lymph: no lymphadenopathy HEART: regular with no S3, II/ systolic murmur at apex LUNGS: Coarse sounds ABD: soft, NT, ND, +BS : Intact Neuro: non focal SKIN: chronic changes EXT: trace edema Results Result Diagram: 03/14/16 1410 03/14/16 1410 Results 24 hrs Laboratory Tests Test 03/14/16 11:52 03/14/16 14:10 03/14/16 17:34 03/14/16 20:58 Bedside Glucose 241 H 317 H 271 H Anion Gap 12 Anisocytosis 1+ Basophils # Basophils % Blood Morphology Comment Blood Urea Nitrogen 35 H Calcium Level 8.6 Carbon Dioxide Level Chloride Level 90 L Creatinine 0.62 Eosinophils # Eosinophils % Glucose Level 206 Hematocrit 35.7 #L Hemoglobin 11.6 L Hypochromasia 1+ Large Platelets FEW Lymphocytes # 0.9 Lymphocytes % 3.0 L Mean Corpuscular Hemoglobin 28.8 L Mean Corpuscular Hemoglobin Concent 32.5 Mean Corpuscular Volume 88.8 Mean Platelet Volume 8.4 Monocytes # 0.9 Monocytes % 3.0 Neutrophils # 28.9 H Neutrophils % 94.0 H Nucleated Red Blood Cells # Nucleated Red Blood Cells % 0.0 Platelet Count 456 H Platelet Estimate PLT APPEAR INCREASED Potassium Level 4.0 Red Blood Count 4.02 #L Red Cell Distribution Width 18.0 H Sodium Level 140 White Blood Count 30.7 #H Test 03/15/16 02:46 03/15/16 07:52 Bedside Glucose 258 H 271 H Medications Medications Current Medications Ascorbic Acid (Vitamin C) 500 mg DAILY PO Last administered on 03/15/16 08:41; Admin Dose 500 MG; Start 03/04/16 at 09:00 Aspirin (Halfprin) 81 mg DAILY PO Last administered on 03/15/16 08:41; Admin Dose 81 MG; Start 03/04/16 at 09:00 Atorvastatin Calcium (Lipitor) 10 mg QHS PO Last administered on 03/14/16 21:00 ; Admin Dose 10 MG; Start 03/03/16 at 21:00 Docusate Sodium (Colace) 100 mg BID PO Last administered on 03/15/16 08:42; Admin Dose 100 MG; Start 03/03/16 at 21:00 Finasteride (Proscar) 5 mg DAILY PO Last administered on 03/15/16 08:40; Admin Dose 5 MG; Start 03/04/16 at 09:00 Gabapentin (Neurontin) 100 mg TID PO Last administered on 03/15/16 08:42; Admin Dose 100 MG; Start 03/03/16 at 21:00 Ipratropium [place] (Atrovent Hfa) 2 puff Q6 INH Last administered on 03/15/16 05:43; Admin Dose 2 PUFF; Start 03/04/16 at 00:00 Isosorbide Dinitrate (Isordil) 20 mg TID PO Last administered on 03/15/16 08:42 ; Admin Dose 20 MG; Start 03/03/16 at 21:00 Lactobacillus Acidoph/Bulgaricus (Floranex) 1 tab BID PO Last administered on 08:42; Admin Dose 1 TAB; Start 03/03/16 at 22:00 Lactulose (Enulose) 20 gm DAILY PO Last administered on 03/15/16 08:43; Admin Dose 20 GM; Start 03/04/16 at 09:00 Al Hydrox/Mg Hydrox/Simethicone (Mag-Al Plus) 30 ml Q6H PRN PO DISTENSION/GAS/ BLOATING; Start 03/03/16 at 20:00 Multivitamins Therapeutic (Theragran) 1 tab DAILY PO Last administered on 08:40; Admin Dose 1 TAB; Start 03/04/16 at 09:00 Nifedipine (Procardia Xl) 30 mg BID PO Last administered on 03/15/16 08:42; Admin Dose 30 MG; Start 03/03/16 at 21:00 Nitroglycerin (Nitroglycerin (Sl Tab) 0.4 Mg) 1 tab [id number] PRN SL CHEST PAIN ; Start 03/03/16 at 20:00 Polyethylene Glycol (Miralax) 17 gm DAILY PO Last administered on 03/15/16 08: 45; Admin Dose 17 GM; Start 03/04/16 at 09:00 Potassium Chloride (Klor-Con 20) 20 meq DAILY PO Last administered on 03/15/16 08:41; Admin Dose 20 MEQ; Start 03/04/16 at 09:00 Quetiapine Fumarate (Seroquel) 25 mg Q8 PO Last administered on 03/15/16 05:33 ; Admin Dose 25 MG; Start 03/03/16 at 22:00 Salmeterol Xinafoate/ Fluticasone (Advair 250/50 Diskus) 1 inh BID INH Last administered on 03/15/16 08:43; Admin Dose 1 INH; Start 03/03/16 at 22:00 Zolpidem Tartrate (Ambien) 5 mg QHS PRN PO INSOMNIA Last administered on 22:12; Admin Dose 5 MG; Start 03/03/16 at 20:00 Ondansetron HCl (Zofran Inj) 4 mg Q6H PRN IV NAUSEA AND/OR VOMITING Last administered on 03/08/16at 05:25; Admin Dose 4 MG; Start 03/03/16 at 20:00 Methylprednisolone Sodium Succinate (Solu-Medrol) 40 mg Q12 IV Last administered on 03/15/16 08:43; Admin Dose 40 MG; Start 03/03/16 at 21:00 Insulin Glargine (Lantus) 8 unit HS SC Last administered on 03/14/16 21:20; Admin Dose 8 UNIT; Start 03/03/16 at 22:00 Pantoprazole (Protonix Tab) 40 mg DAILY@06 PO Last administered on 03/15/16 05: 34; Admin Dose 40 MG; Start 03/04/16 at 06:00 Miscellaneous Information 1 ea NOTE XX ; Start 03/03/16 at 21:00 Glucose (Glutose) 15 gm Q15M PRN PO DECREASED GLUCOSE; Start 03/03/16 at 21:00 Glucose (Glutose) 22.5 gm Q15M PRN PO DECREASED GLUCOSE; Start 03/03/16 at 21: 00 Dextrose (D50w Syringe) 25 ml Q15M PRN IV DECREASED GLUCOSE; Start 03/03/16 at 21:00 Dextrose (D50w Syringe) 50 ml Q15M PRN IV DECREASED GLUCOSE; Start 03/03/16 at 21:00 Glucagon (Glucagen) 1 mg Q15M PRN IM DECREASED GLUCOSE; Start 03/03/16 at 21: 00 Glucose (Glutose) 15 gm Q15M PRN BUCCAL DECREASED GLUCOSE; Start 03/03/16 at 21:00 Metoprolol Tartrate (Lopressor) 50 mg BID PO Last administered on 03/15/16 08: 41; Admin Dose 50 MG; Start 03/04/16 at 21:00 Enoxaparin Sodium (Lovenox) 40 mg DAILY SC Last administered on 03/15/16 08:58 ; Admin Dose 40 MG; Start 03/05/16 at 09:00 Acetaminophen/ Hydrocodone Bitart ([place] (5/325)) 1 tab Q4 PRN PO PRN Last administered on 03/15/16 09:49; Admin Dose 1 TAB; Start 03/05/16 at 21:00 Diagnostic Test (Pha) (Accucheck) 1 ea 02 XX Last administered on 03/09/16at 02 :00; Admin Dose 1 EA; Start 03/07/16 at 02:00 Meclizine HCl (Antivert) 25 mg Q6 PO Last administered on 03/15/16 10:35; Admin Dose 25 MG; Start 03/07/16 at 13:14 Benazepril HCl (Lotensin) 20 mg Q12 PO Last administered on 03/15/16 08:40; Admin Dose 20 MG; Start 03/14/16 at 09:00 Trimethoprim/ Sulfamethoxazole (Bactrim Susp) 20 ml BID PO Last administered on 03/15/16 08:43; Admin Dose 20 ML; Start 03/13/16 at 21:00 Furosemide (Lasix) 20 mg DAILY PO Last administered on 03/15/16 08:42; Admin Dose 20 MG; Start 03/15/16 at 09:00 Guaifenesin/ Dextromethorphan (Robitussin Dm Liquid Cup) 10 ml Q4H PRN PO cough Last administered on 03/14/16 14:13; Admin Dose 10 ML; Start 03/14/16 at 12 :30 KYLEIGH OVIEDO MD Mar 15, 2016 11:34
--- NOTE | 2016-03-15 11:37 | CONS ---
Date/Time of Note Date/Time of Note DATE: 03/15/16 TIME: 11:35 Consult Date/Type/Reason Admit Date/Time Mar 03, 2016 at 17:24 Type of Consultation: Pulm Ordering Provider: GILLIAN GRIFFITH MD Subjective Comfortable. Objective Vital Signs Date Time Temp Pulse Resp B/P Pulse Ox O2 Delivery O2 Flow Rate FiO2 03/15/16 07:55 98.7 82 20 136/68 91 03/15/16 04:00 Nasal Cannula 3.0 Intake and Output 03/14/16 03/14/16 03/15/16 15:00 23:00 07:00 Intake Total 720 ml 240 ml Output Total 1250 ml 300 ml Balance -530 ml -60 ml PHYSICAL EXAMINATION: VITAL SIGNS: HEENT: Dry mucous membranes. Pupils equal and reactive to light. CARDIAC: S1, S2, II/ systolic ejection murmur. CHEST: Diminished air entry bilaterally. ABDOMEN: Soft, nontender. No guarding or rebound. EXTREMITIES: No cyanosis, clubbing. Edema +1. NEUROLOGIC: Bilateral lower extremity weakness. Results/Medications Result Diagram: 03/14/16 1410 03/14/16 1410 Results 24 hrs Laboratory Tests Test 03/14/16 11:52 03/14/16 14:10 03/14/16 17:34 03/14/16 20:58 Bedside Glucose 241 H 317 H 271 H Anion Gap 12 Anisocytosis 1+ Basophils # Basophils % Blood Morphology Comment Blood Urea Nitrogen 35 H Calcium Level 8.6 Carbon Dioxide Level Chloride Level 90 L Creatinine 0.62 Eosinophils # Eosinophils % Glucose Level 206 Hematocrit 35.7 #L Hemoglobin 11.6 L Hypochromasia 1+ Large Platelets FEW Lymphocytes # 0.9 Lymphocytes % 3.0 L Mean Corpuscular Hemoglobin 28.8 L Mean Corpuscular Hemoglobin Concent 32.5 Mean Corpuscular Volume 88.8 Mean Platelet Volume 8.4 Monocytes # 0.9 Monocytes % 3.0 Neutrophils # 28.9 H Neutrophils % 94.0 H Nucleated Red Blood Cells # Nucleated Red Blood Cells % 0.0 Platelet Count 456 H Platelet Estimate PLT APPEAR INCREASED Potassium Level 4.0 Red Blood Count 4.02 #L Red Cell Distribution Width 18.0 H Sodium Level 140 White Blood Count 30.7 #H Test 03/15/16 02:46 03/15/16 07:52 Bedside Glucose 258 H 271 H Medications Current Medications Ascorbic Acid (Vitamin C) 500 mg DAILY PO Last administered on 03/15/16 08:41; Admin Dose 500 MG; Start 03/04/16 at 09:00 Aspirin (Halfprin) 81 mg DAILY PO Last administered on 03/15/16 08:41; Admin Dose 81 MG; Start 03/04/16 at 09:00 Atorvastatin Calcium (Lipitor) 10 mg QHS PO Last administered on 03/14/16 21:00 ; Admin Dose 10 MG; Start 03/03/16 at 21:00 Docusate Sodium (Colace) 100 mg BID PO Last administered on 03/15/16 08:42; Admin Dose 100 MG; Start 03/03/16 at 21:00 Finasteride (Proscar) 5 mg DAILY PO Last administered on 03/15/16 08:40; Admin Dose 5 MG; Start 03/04/16 at 09:00 Gabapentin (Neurontin) 100 mg TID PO Last administered on 03/15/16 08:42; Admin Dose 100 MG; Start 03/03/16 at 21:00 Ipratropium [place] (Atrovent Hfa) 2 puff Q6 INH Last administered on 03/15/16 05:43; Admin Dose 2 PUFF; Start 03/04/16 at 00:00 Isosorbide Dinitrate (Isordil) 20 mg TID PO Last administered on 03/15/16 08:42 ; Admin Dose 20 MG; Start 03/03/16 at 21:00 Lactobacillus Acidoph/Bulgaricus (Floranex) 1 tab BID PO Last administered on 08:42; Admin Dose 1 TAB; Start 03/03/16 at 22:00 Lactulose (Enulose) 20 gm DAILY PO Last administered on 03/15/16 08:43; Admin Dose 20 GM; Start 03/04/16 at 09:00 Al Hydrox/Mg Hydrox/Simethicone (Mag-Al Plus) 30 ml Q6H PRN PO DISTENSION/GAS/ BLOATING; Start 03/03/16 at 20:00 Multivitamins Therapeutic (Theragran) 1 tab DAILY PO Last administered on 08:40; Admin Dose 1 TAB; Start 03/04/16 at 09:00 Nifedipine (Procardia Xl) 30 mg BID PO Last administered on 03/15/16 08:42; Admin Dose 30 MG; Start 03/03/16 at 21:00 Nitroglycerin (Nitroglycerin (Sl Tab) 0.4 Mg) 1 tab [id number] PRN SL CHEST PAIN ; Start 03/03/16 at 20:00 Polyethylene Glycol (Miralax) 17 gm DAILY PO Last administered on 03/15/16 08: 45; Admin Dose 17 GM; Start 03/04/16 at 09:00 Potassium Chloride (Klor-Con 20) 20 meq DAILY PO Last administered on 03/15/16 08:41; Admin Dose 20 MEQ; Start 03/04/16 at 09:00 Quetiapine Fumarate (Seroquel) 25 mg Q8 PO Last administered on 03/15/16 05:33 ; Admin Dose 25 MG; Start 03/03/16 at 22:00 Salmeterol Xinafoate/ Fluticasone (Advair 250/50 Diskus) 1 inh BID INH Last administered on 03/15/16 08:43; Admin Dose 1 INH; Start 03/03/16 at 22:00 Zolpidem Tartrate (Ambien) 5 mg QHS PRN PO INSOMNIA Last administered on 22:12; Admin Dose 5 MG; Start 03/03/16 at 20:00 Ondansetron HCl (Zofran Inj) 4 mg Q6H PRN IV NAUSEA AND/OR VOMITING Last administered on 03/08/16at 05:25; Admin Dose 4 MG; Start 03/03/16 at 20:00 Methylprednisolone Sodium Succinate (Solu-Medrol) 40 mg Q12 IV Last administered on 03/15/16 08:43; Admin Dose 40 MG; Start 03/03/16 at 21:00 Insulin Glargine (Lantus) 8 unit HS SC Last administered on 03/14/16 21:20; Admin Dose 8 UNIT; Start 03/03/16 at 22:00 Pantoprazole (Protonix Tab) 40 mg DAILY@06 PO Last administered on 03/15/16 05: 34; Admin Dose 40 MG; Start 03/04/16 at 06:00 Miscellaneous Information 1 ea NOTE XX ; Start 03/03/16 at 21:00 Glucose (Glutose) 15 gm Q15M PRN PO DECREASED GLUCOSE; Start 03/03/16 at 21:00 Glucose (Glutose) 22.5 gm Q15M PRN PO DECREASED GLUCOSE; Start 03/03/16 at 21: 00 Dextrose (D50w Syringe) 25 ml Q15M PRN IV DECREASED GLUCOSE; Start 03/03/16 at 21:00 Dextrose (D50w Syringe) 50 ml Q15M PRN IV DECREASED GLUCOSE; Start 03/03/16 at 21:00 Glucagon (Glucagen) 1 mg Q15M PRN IM DECREASED GLUCOSE; Start 03/03/16 at 21: 00 Glucose (Glutose) 15 gm Q15M PRN BUCCAL DECREASED GLUCOSE; Start 03/03/16 at 21:00 Metoprolol Tartrate (Lopressor) 50 mg BID PO Last administered on 03/15/16 08: 41; Admin Dose 50 MG; Start 03/04/16 at 21:00 Enoxaparin Sodium (Lovenox) 40 mg DAILY SC Last administered on 03/15/16 08:58 ; Admin Dose 40 MG; Start 03/05/16 at 09:00 Acetaminophen/ Hydrocodone Bitart ([place] (5/325)) 1 tab Q4 PRN PO PRN Last administered on 03/15/16 09:49; Admin Dose 1 TAB; Start 03/05/16 at 21:00 Diagnostic Test (Pha) (Accucheck) 1 ea 02 XX Last administered on 03/09/16at 02 :00; Admin Dose 1 EA; Start 03/07/16 at 02:00 Meclizine HCl (Antivert) 25 mg Q6 PO Last administered on 03/15/16 10:35; Admin Dose 25 MG; Start 03/07/16 at 13:14 Benazepril HCl (Lotensin) 20 mg Q12 PO Last administered on 03/15/16 08:40; Admin Dose 20 MG; Start 03/14/16 at 09:00 Trimethoprim/ Sulfamethoxazole (Bactrim Susp) 20 ml BID PO Last administered on 03/15/16 08:43; Admin Dose 20 ML; Start 03/13/16 at 21:00 Furosemide (Lasix) 20 mg DAILY PO Last administered on 03/15/16 08:42; Admin Dose 20 MG; Start 03/15/16 at 09:00 Guaifenesin/ Dextromethorphan (Robitussin Dm Liquid Cup) 10 ml Q4H PRN PO cough Last administered on 03/14/16t 14:13; Admin Dose 10 ML; Start 03/14/16 at 12 :30 Assessment/Plan Chief Complaint/Hosp Course IMPRESSION AND PLAN: 1. Congestive cardiac failure. 2. Hypoxemic respiratory failure. 3. Chronic obstructive pulmonary disease with acute exacerbation. 4. Significant deconditioning. The patient will require: 1. Continued supplemental O2. 2. Bronchodilators. 3. Pain and anxiety control. agree with discharge planning. Problems: JOSS CHIRINOS MD, [facility] Mar 15, 2016 11:37
--- NOTE | 2016-03-15 11:47 | DS ---
Date/Time of Note Date/Time of Note DATE: 03/15/16 TIME: 11:43 Discharge Summary Admission/Discharge Info Admit Date/Time Mar 03, 2016 at 17:24 Discharge Date/Time 03/15/16 Final Diagnosis 1) CHF 2) COPD Hx of Present Illness ALOC (STEPHEN MALDONADO MD) HPI 75-year-old man brought in by EMS from [facility] for shortness of breath and cough. He has been feeling weak today as well he denies confusion, denies chest pain, no calf or leg swelling, no headache or blurry vision. Patient denies fever although was recently admitted for pneumonia. Patient was transported here by EMS without further complication. HPI supplemented by reviewing past medical history, [facility] records, speaking to EMS, nursing staff. (STEPHEN MALDONADO MD) ROS All systems reviewed and are negative except as per history of present illness. (STEPHEN MALDONADO MD) Medications Home Meds Reported Medications Acetaminophen* (Acetaminophen*) 650 Mg Tablet, 650 MG PO Q4H WHILE AWAKE Y for PAIN AND OR ELEVATED TEMP, #30 TAB 03/03/16 Protein Supplement (Promod) 946 Ml Liquid, 30 ML PO TID 03/03/16 Lansoprazole* (Lansoprazole*) 30 Mg Capsule.dr, 30 MG PO DAILY, CAP 03/03/16 Prednisone* (Prednisone*) 20 Mg Tab, 40 MG PO DAILY, TAB STARTED 03-03-16 STOPED ON 03-08-16 03/03/16 Potassium Chloride* (Potassium Chloride*) 20 Meq Tablet.er, 20 MEQ PO DAILY, TAB.SA 03/03/16 Oxycodone HCl/Acetaminophen (Percocet 5-325 mg Tablet) 1 Each Tablet, 1 EACH PO Q4H WHILE AWAKE Y for MODERATE PAIN LEVEL 4-6, TAB 03/03/16 Nitroglycerin* (Nitrostat*) 0.4 Mg Tab.subl, 0.4 MG SL Q5MIN Y for CHEST PAIN, BOTTLE 03/03/16 Nifedipine* (Nifedipine ER*) 30 Mg Tablet.sa, 30 MG PO BID, TAB.SA 03/03/16 Polyethylene Glycol* (Miralax*) 17 Gm Powd.pack, 17 GM PO DAILY, #30 PACKET 03/03/16 Mag Hydrox/Al Hydrox/Simeth (Maalox Advanced Suspension) 355 Ml Oral.susp, 30 ML PO Q6 Y for DISTENSION/GAS/BLOATING 03/03/16 Metoprolol Tartrate* (Lopressor*) 25 Mg Tab, 75 MG PO BID, #180 TAB 03/03/16 Levofloxacin* (Levaquin*) 500 Mg Tablet, 500 MG PO DAILY, TAB STARTED 03/02/16 STOP 03/13/16 03/03/16 Lactulose* (Lactulose*) 20 Gm/30 Ml Solution, 20 GM PO DAILY, ML 03/03/16 Isosorbide Dinitrate* (Isosorbide Dinitrate*) 20 Mg Tablet, 20 MG PO TID, TAB 03/03/16 Insulin Glargine* (Lantus*) 100 Unit/Ml Soln, 7 UNIT SC QHS, #1 VIAL 03/03/16 Insulin Aspart* (Novolog Insulin Pen*) 100 Unit/Ml Soln, 3 UNIT SC AC MEALS, EA 03/03/16 Gabapentin* (Gabapentin*) 100 Mg Capsule, 100 MG PO TID, #90 CAP 03/03/16 Docusate Sodium* (Colace*) 100 Mg Capsule, 100 MG PO BID, #60 CAP 03/03/16 Aspirin (Low Dose Aspirin) 81 Mg Tablet.dr, 81 MG PO DAILY, #30 TAB 03/03/16 Ascorbic Acid* (Ascorbic Acid*) 500 Mg/5 Ml Syrup, 500 MG PO DAILY, #150 ML 03/03/16 Zolpidem Tartrate* (Ambien*) 5 Mg Tablet, 5 MG PO QHS Y for INSOMNIA, #30 TAB 03/03/16 Lorazepam* (Lorazepam*) 0.5 Mg Tablet, 0.5 MG PO Q6, TAB 01/25/16 Quetiapine Fumarate* (Seroquel*) 25 Mg Tablet, 25 MG PO Q8, #90 TAB 01/25/16 Benazepril Hcl* (Benazepril Hcl*) 5 Mg Tablet, 5 MG PO Q12, #60 TAB 01/25/16 Finasteride* (Proscar*) 5 Mg Tablet, 5 MG PO DAILY, TAB 01/25/16 Lactobacillus Acidoph/Bulgaricus* (Floranex*) 1 Each Tablet, 1 TAB.CHEW PO BID, TAB.CHEW 01/25/16 Ipratropium [place]* (Atrovent HFA*) 12.9 Gm Aer.w.adap, 2 PUFF INHALATION Q6, # 1 INHALER 01/25/16 Atorvastatin Calcium (Atorvastatin Calcium) 10 Mg Tablet, 10 MG PO QHS, #30 TAB 01/25/16 Salmeterol Xinaf/Fluticasone* (Advair*) 250-50 Diskus Inhaler, 1 INH INHALATION BID, #1 INHALER 01/25/16 Multivitamins* (Theragran*) 1 Tab Tab, 1 TAB PO DAILY, TAB 01/25/16 Hydrocodone/Acetaminophen ([place] 5-325 Tablet) 1 Each Tablet, 1 EACH PO Q6H Y for PRN, TAB 01/25/16 Discontinued Reported Medications Temazepam* (Restoril*) 15 Mg Capsule, 15 MG PO HS Y for INSOMNIA, CAP 01/25/16 Aspirin* (Aspirin* EC) 81 Mg Tablet.dr, 81 MG PO DAILY, TAB 01/25/16 Pantoprazole* (Protonix*) 40 Mg Tablet.dr, 40 MG PO DAILY, TAB 01/25/16 Metoprolol Succinate* (Toprol XL*) 25 Mg Tab.sr.24h, 12.5 MG PO Q12, #30 TAB 01/25/16 Meclizine Hcl* (Meclizine Hcl*) 25 Mg Tablet, 25 MG PO Q8H Y for DIZZINESS, TAB 01/25/16 Gabapentin* (Neurontin*) 300 Mg Capsule, 300 MG PO Q8, #90 CAP 01/25/16 Albuterol Sulfate* (Albuterol Sulfate* Neb) 0.083%-3 Ml Neb, 2.5 MG NEB Q6, #30 VIAL 01/25/16 Insulin NPH Human Isophane (Humulin N) 100 Unit/1 Ml Vial, SQ SLIDING SCALE, VIAL 01/25/16 Allergies Allergies: Coded Allergies: No Known Drug Allergy (Verified Allergy, Unknown, 03/03/16) Hospital Course Patient admitted for COPD and CHF. He was treated with breathing treatments and he slowly improved. Patient continues to complain but physically he is stable. He has been weaned off benzodiazepines which is most likely a major cause of his difficulty with breathing. Patient will be discharged to the [facility]. IMPRESSION AND PLAN: 1. Congestive cardiac failure. 2. Hypoxemic respiratory failure. 3. Chronic obstructive pulmonary disease with acute exacerbation. 4. Significant deconditioning. The patient will require: 1. Continued supplemental O2. 2. Bronchodilators. 3. Pain and anxiety control. agree with discharge planning. Home Meds Reported Medications Acetaminophen* (Acetaminophen*) 650 Mg Tablet, 650 MG PO Q4H WHILE AWAKE Y for PAIN AND OR ELEVATED TEMP, #30 TAB 03/03/16 Protein Supplement (Promod) 946 Ml Liquid, 30 ML PO TID 03/03/16 Lansoprazole* (Lansoprazole*) 30 Mg Capsule.dr, 30 MG PO DAILY, CAP 03/03/16 Prednisone* (Prednisone*) 20 Mg Tab, 40 MG PO DAILY, TAB STARTED 03-03-16 STOPED ON 03-08-16 03/03/16 Potassium Chloride* (Potassium Chloride*) 20 Meq Tablet.er, 20 MEQ PO DAILY, TAB.SA 03/03/16 Oxycodone HCl/Acetaminophen (Percocet 5-325 mg Tablet) 1 Each Tablet, 1 EACH PO Q4H WHILE AWAKE Y for MODERATE PAIN LEVEL 4-6, TAB 03/03/16 Nitroglycerin* (Nitrostat*) 0.4 Mg Tab.subl, 0.4 MG SL Q5MIN Y for CHEST PAIN, BOTTLE 03/03/16 Nifedipine* (Nifedipine ER*) 30 Mg Tablet.sa, 30 MG PO BID, TAB.SA 03/03/16 Polyethylene Glycol* (Miralax*) 17 Gm Powd.pack, 17 GM PO DAILY, #30 PACKET 03/03/16 Mag Hydrox/Al Hydrox/Simeth (Maalox Advanced Suspension) 355 Ml Oral.susp, 30 ML PO Q6 Y for DISTENSION/GAS/BLOATING 03/03/16 Metoprolol Tartrate* (Lopressor*) 25 Mg Tab, 75 MG PO BID, #180 TAB 03/03/16 Levofloxacin* (Levaquin*) 500 Mg Tablet, 500 MG PO DAILY, TAB STARTED 03/02/16 STOP 03/13/16 03/03/16 Lactulose* (Lactulose*) 20 Gm/30 Ml Solution, 20 GM PO DAILY, ML 03/03/16 Isosorbide Dinitrate* (Isosorbide Dinitrate*) 20 Mg Tablet, 20 MG PO TID, TAB 03/03/16 Insulin Glargine* (Lantus*) 100 Unit/Ml Soln, 7 UNIT SC QHS, #1 VIAL 03/03/16 Insulin Aspart* (Novolog Insulin Pen*) 100 Unit/Ml Soln, 3 UNIT SC AC MEALS, EA 03/03/16 Gabapentin* (Gabapentin*) 100 Mg Capsule, 100 MG PO TID, #90 CAP 03/03/16 Docusate Sodium* (Colace*) 100 Mg Capsule, 100 MG PO BID, #60 CAP 03/03/16 Aspirin (Low Dose Aspirin) 81 Mg Tablet.dr, 81 MG PO DAILY, #30 TAB 03/03/16 Ascorbic Acid* (Ascorbic Acid*) 500 Mg/5 Ml Syrup, 500 MG PO DAILY, #150 ML 03/03/16 Zolpidem Tartrate* (Ambien*) 5 Mg Tablet, 5 MG PO QHS Y for INSOMNIA, #30 TAB 03/03/16 Lorazepam* (Lorazepam*) 0.5 Mg Tablet, 0.5 MG PO Q6, TAB 01/25/16 Quetiapine Fumarate* (Seroquel*) 25 Mg Tablet, 25 MG PO Q8, #90 TAB 01/25/16 Benazepril Hcl* (Benazepril Hcl*) 5 Mg Tablet, 5 MG PO Q12, #60 TAB 01/25/16 Finasteride* (Proscar*) 5 Mg Tablet, 5 MG PO DAILY, TAB 01/25/16 Lactobacillus Acidoph/Bulgaricus* (Floranex*) 1 Each Tablet, 1 TAB.CHEW PO BID, TAB.CHEW 01/25/16 Ipratropium [place]* (Atrovent HFA*) 12.9 Gm Aer.w.adap, 2 PUFF INHALATION Q6, # 1 INHALER 01/25/16 Atorvastatin Calcium (Atorvastatin Calcium) 10 Mg Tablet, 10 MG PO QHS, #30 TAB 01/25/16 Salmeterol Xinaf/Fluticasone* (Advair*) 250-50 Diskus Inhaler, 1 INH INHALATION BID, #1 INHALER 01/25/16 Multivitamins* (Theragran*) 1 Tab Tab, 1 TAB PO DAILY, TAB 01/25/16 Hydrocodone/Acetaminophen ([place] 5-325 Tablet) 1 Each Tablet, 1 EACH PO Q6H Y for PRN, TAB 01/25/16 Pending Labs Laboratory Tests Test 03/14/16 11:52 03/14/16 14:10 03/14/16 17:34 03/14/16 20:58 Bedside Glucose 241mg/dL (70-220) 317mg/dL (70-220) 271mg/dL (70-220) Anion Gap 12 (8-16) Anisocytosis 1+ Basophils # 10^3/ul (0.0-0.1) Basophils % % (0.0-2.0) Blood Morphology Comment Blood Urea Nitrogen 35mg/dl (7-20) Calcium Level 8.6mg/dl (8.4-10.2) Carbon Dioxide Level mmol/L (21-31) Chloride Level 90mmol/L (97-110) Creatinine 0.62mg/dl (0.61-1.24) Eosinophils # 10^3/ul (0.0-0.5) Eosinophils % % (0.0-7.0) Glucose Level 206mg/dl (70-220) Hematocrit 35.7% (42.0-52.0) Hemoglobin 11.6g/dl (14.0-18.0) Hypochromasia 1+ Large Platelets FEW Lymphocytes # 0.910^3/ul (0.8-2.9) Lymphocytes % 3.0% (15.0-51.0) Mean Corpuscular Hemoglobin 28.8pg (29.0-33.0) Mean Corpuscular Hemoglobin Concent 32.5g/dl (32.0-37.0) Mean Corpuscular Volume 88.8fl (82.0-101.0) Mean Platelet Volume 8.4fl (7.4-10.4) Monocytes # 0.910^3/ul (0.3-0.9) Monocytes % 3.0% (0.0-11.0) Neutrophils # 28.910^3/ul (1.6-7.5) Neutrophils % 94.0% (39.0-77.0) Nucleated Red Blood Cells # 10^3/ul (0.0-0.0) Nucleated Red Blood Cells % 0.0/100WBC (0.0-0.0) Platelet Count 56961^3/UL (140-440) Platelet Estimate PLT APPEAR INCREASED Potassium Level 4.0mmol/L (3.5-5.1) Red Blood Count 4.0210^6/ul (4.70-6.10) Red Cell Distribution Width 18.0% (11.5-14.5) Sodium Level 140mmol/L (135-144) White Blood Count 30.710^3/ul (4.8-10.8) Test 03/15/16 02:46 03/15/16 07:52 Bedside Glucose 258mg/dL (70-220) 271mg/dL (70-220) GAYE LUO Mar 15, 2016 11:47
== END 2016-03-15 14:00 | DRG 291 ==
LOC: E/R 04:22 → MS4 17:18 → MS2 03-14 18:49
PROVIDERS: ADMIT Internal Medicine; ATTEND Internal Medicine
PROC: 4A033R1 Measurement of Arterial Saturation, Peripheral, Percutaneous Approach (ICD-10-PCS; principal; 2016-03-03)
DX: I50.43 Acute on chronic combined systolic (congestive) and diastolic (congestive) heart failure (principal); J96.02 Acute respiratory failure with hypercapnia; J18.9 Pneumonia, unspecified organism; E86.0 Dehydration; F03.90 Unspecified dementia, unspecified severity, without behavioral disturbance, psychotic disturbance, mood disturbance, and anxiety; E11.9 Type 2 diabetes mellitus without complications; I42.9 Cardiomyopathy, unspecified; I49.5 Sick sinus syndrome; B95.62 Methicillin resistant Staphylococcus aureus infection as the cause of diseases classified elsewhere; J44.1 Chronic obstructive pulmonary disease with (acute) exacerbation; I10 Essential (primary) hypertension; I25.10 Atherosclerotic heart disease of native coronary artery without angina pectoris; E87.6 Hypokalemia; D64.9 Anemia, unspecified; B96.5 Pseudomonas (aeruginosa) (mallei) (pseudomallei) as the cause of diseases classified elsewhere; Z66 Do not resuscitate; Z95.0 Presence of cardiac pacemaker; Z87.891 Personal history of nicotine dependence; Z87.01 Personal history of pneumonia (recurrent)
CPT/HCPCS: 36415; 36600; 71010; 80048; 80053; 81001; 81003; 82550; 82553; 82803; 82962; 83036; 83605; 83690; 83880; 84134; 84484; 85025; 85610; 87040; 87070; 89220; 92526; 92610; 93005; 94640; 94644; 94664; 96374; 96375; 96376; 97001; 97530; J1940; J1170; J1650; J1815; J1956; J2060; J2270; J2405; J2920; J3480; J7030